=== PATIENT | male | born 1975 | race Caucasian/White ===

== ENCOUNTER 2016-11-11 07:07 | Inpatient (IN) | payer BC ==
[~2016-11-11] VITALS: Ht 182.9 cm; Wt 110.9 kg
[~2016-11-11 07:07] MED LIST: APRISO0.375 GM PO; ASACOL HD800 MG PO; ASACOL PO; CARDIZEM CD 18180 MG PO; CARDIZEM CD 24240 MG PO; CARDIZEM30 MG PO; CATAPRES; CATAPRES 0.1MG0.1 MG PO; CLONIDINE0.1 MG PO; DILTIAZEM XT PO; FLAGYL; FLAGYL 250250 MG/TAB PO; FLAGYL500 MG PO; FLEXERIL 1010 MG/TAB PO; IMURAN 50MG TAB50 MG PO; IMURAN50 MG PO; LABETALOL100 MG PO; LEVBID0.375 MG PO; LISINOPRIL20 MG PO; LISINOPRIL40 MG PO; LORTAB 5/500 501 TAB PO; LORTAB PO; MEDROL 4MG DOSPA4 MG PO; METOPROLOL25 MG PO; NO HOME MEDICATIONS; NORCO 325 MG-51 TAB; NORCO 325 MG-51 TAB PO; NORCO 325 MG-7.1 TAB PO; OXYCONTIN 20MG20 MG PO; PERCOCET 325 MG1 TA2 PO; PERCOCET 325 MG1 TA3 PO; PERCOCET 325 MG1 TAB PO; PERCOCET 5/321 UDTAB PO; PERCR 7.5 PO; PREDNISONE 5MG5 MG PO; PREDNISONE1 MG PO; PREDNISONE10 MG; PREDNISONE20 MG PO; PRINIVIL40 MG PO; REMICADE V100 MG/VIA IV; TOPROL XL100 MG PO; VALIUM 5MG T5 MG/TAB PO; VICODIN 5/300 PO; ZESTRIL40 MG PO; ZOFRAN 4MG T4 MG/TAB PO; [UNRECOGNIZED DRUG - OTHER]
[2016-11-11 07:34] LABS: BASO % 0.7 % (0.0-2.0); EOS # 0.2 (0.0-0.7); EOS % 3.1 % (0-4.0); GRAN % 64.8 % (42.2-75.2); HEMOGLOBIN 16.2 g/dl (13.5-18.0); LYMPH # 1.4 (1.2-3.4); LYMPH % 22.6 % (20.0-51.0); MEAN CELL VOLUME 89 fl (80.0-100.0); MEAN CORPUSCULAR HEMOGLOBIN 31 pg (27.0-31.0); MEAN CORPUSCULAR HGB CONC 35 g/dl (33.0-37.0); MONO # 0.5 (0.1-0.6); MONO % 8.5 % (1.7-9.3); PLATELET COUNT 195 K/mm3 (130-400); RED BLOOD COUNT 5.28 M/mm3 (4.20-5.60); REDCELL DISTRIBUTION WIDTH-CV 12.9 % (11.5-14.5); WHITE BLOOD COUNT 6.1 K/mm3 (4.8-10.8)
[2016-11-11 07:38] LABS: ADJUSTED CALCIUM 9.5 mg/dL (8.4-10.2); ALBUMIN 4.3 gm/dL (3.5-5.0); BILIRUBIN,TOTAL 0.8 mg/dL (0.0-1.0); CALCIUM 9.7 mg/dL (8.4-10.2); CREATININE, serum 0.83 mg/dL (0.66-1.25); POTASSIUM 3.7 mmol/L (3.4-5.0); TOTAL PROTEIN 7.6 gm/dL (6.4-8.2)
[2016-11-11 07:49] LABS: TROPONIN-I 0.032 ng/mL (0.000-0.034)
[2016-11-11 08:11] LABS: PROTHROMBIN TIME 11.4 SECONDS (9.7-12.8)
[2016-11-11 08:14] LABS: PARTIAL THROMBOPLASTIN TIME 24.5 SECONDS (26.0-37.0)
[2016-11-11] MEDS ORDERED: CARTIA XT180 MG PO (08:56)
[2016-11-11 11:00] LABS: PROLACTIN 43.7 ng/mL (3.7-17.9)
[2016-11-11 11:17] LABS: TROPONIN-I 0.042 ng/mL (0.000-0.034)
[2016-11-11 13:46] VITALS: BP 157/116; PULSE 78; TEMP 98.7
[2016-11-11 15:56] LABS: MAGNESIUM 1.9 mg/dL (1.6-2.3)
[2016-11-11 16:15] VITALS: BP 176/116; PULSE 82; TEMP 98.4
[2016-11-11 18:52] VITALS: BP 152/91; PULSE 86; TEMP 98.2
[2016-11-11 19:47] VITALS: BP 142/99; PULSE 97; TEMP 98.6
[2016-11-11 21:19] VITALS: BP 152/102; PULSE 80; TEMP 98.6
[2016-11-11 22:33] LABS: PH 5 (5-8); SQUAMOUS EPITHELIAL None Seen /hpf; URINE APPEARANCE Hazy; URINE BACTERIA None Seen /hpf; URINE BILIRUBIN Negative (NEGATIVE); URINE BLOOD Negative (NEGATIVE); URINE COLOR Yellow; URINE GLUCOSE Negative (NEGATIVE); URINE KETONE Negative (NEGATIVE); URINE RBC 0-2 /hpf; URINE UROBILINOGEN Negative (NEGATIVE)
[2016-11-11 22:46] LABS: AMPHETAMINE URINE NEGATIVE; BARBITURATES URINE NEGATIVE; BENZODIAZEPINES URINE NEGATIVE; BUPRENORPHINE URINE NEGATIVE; METHADONE URINE NEGATIVE; OPIATES URINE POSITIVE; OXYCODONE URINE NEGATIVE; PHENCYCLIDINE URINE NEGATIVE; PROPOXYPHENE URINE NEGATIVE; THC CANNABINOIDS URINE NEGATIVE
[2016-11-11 23:35] VITALS: BP 133/92; PULSE 75; TEMP 98.6
[2016-11-12] VITALS (16 sets, daily range): BP systolic 121–172; BP diastolic 73–114; PULSE 65–109; TEMP 97.6–98.4
[2016-11-12 07:03] LABS: BASO % 0.8 % (0.0-2.0); EOS # 0.3 (0.0-0.7); EOS % 5.2 % (0-4.0); GRAN # 1.9 (1.4-6.5); GRAN % 38.6 % (42.2-75.2); HEMATOCRIT 42.5 % (42.0-52.0); LYMPH # 2.2 (1.2-3.4); LYMPH % 44.8 % (20.0-51.0); MEAN CELL VOLUME 92 fl (80.0-100.0); MEAN CORPUSCULAR HEMOGLOBIN 31 pg (27.0-31.0); MEAN CORPUSCULAR HGB CONC 33 g/dl (33.0-37.0); MEAN PLATELET VOLUME 11.3 fl (7.4-10.4); MONO # 0.5 (0.1-0.6); MONO % 10.4 % (1.7-9.3); PLATELET COUNT 178 K/mm3 (130-400); RED BLOOD COUNT 4.62 M/mm3 (4.20-5.60); REDCELL DISTRIBUTION WIDTH-CV 13.2 % (11.5-14.5); WHITE BLOOD COUNT 4.8 K/mm3 (4.8-10.8)
[2016-11-12 07:11] LABS: HEMOGLOBIN 14.2 g/dl (13.5-18.0)
[2016-11-12 08:45] LABS: ALBUMIN 3.5 gm/dL (3.5-5.0); BILIRUBIN,TOTAL 0.6 mg/dL (0.0-1.0); CALCIUM 8.6 mg/dL (8.4-10.2); CREATININE, serum 0.76 mg/dL (0.66-1.25); POTASSIUM 3.9 mmol/L (3.4-5.0); TOTAL PROTEIN 6.3 gm/dL (6.4-8.2)
[2016-11-13 00:15] VITALS: BP 111/71; PULSE 60; TEMP 97.6
[2016-11-13 02:15] VITALS: BP 105/68; PULSE 62; TEMP 97.7
[2016-11-13 04:26] VITALS: BP 118/83; PULSE 56; TEMP 98.4
[2016-11-13 07:43] VITALS: BP 120/82; PULSE 54; TEMP 97.8
[2016-11-13 10:40] VITALS: BP 131/79; PULSE 69; TEMP 98.1
[2016-11-13] MEDS ORDERED: COREG12.5 MG PO (13:46)
[2016-11-13] MEDS ORDERED: ZESTRIL 20MG TA20 MG PO (13:47)
[2016-11-13] MEDS ORDERED: ASPIRIN E.C. 8181 MG PO (13:47)
[2016-11-13] MEDS ORDERED: LASIX 20MG TABL20 MG PO (13:48)
== END 2016-11-13 16:00 | disposition home or self-care (01) | DRG 287 ==
LOC: COL.ER → EDBD 07:08 → MEDICAL 12:04
PROVIDERS: Emergency Medicine; Physician Assistant
PROC: B2111ZZ Fluoroscopy of Multiple Coronary Arteries using Low Osmolar Contrast (ICD-10-PCS; principal; 2016-11-12)
DX: I11.0 Hypertensive heart disease with heart failure (principal); K51.90 Ulcerative colitis, unspecified, without complications; I50.21 Acute systolic (congestive) heart failure; R56.9 Unspecified convulsions; I42.0 Dilated cardiomyopathy; G89.29 Other chronic pain; W18.30XA Fall on same level, unspecified, initial encounter; M54.5 Low back pain; F10.10 Alcohol abuse, uncomplicated
CPT/HCPCS: 99222-AI; 99233-AI; 99239; A9502; A9585; C1769; C1887; C1894; J1644; J1650; J1885; J2250; J2765; J2785; J3010; J7030; Q9967

== ENCOUNTER 2016-12-06 17:35 | Emergency (ER) | payer BC ==
[2009-04-11 02:41] VITALS: BP 136/95
[~2016-12-06] VITALS: Ht 182.9 cm; Wt 106.4 kg
[~2016-12-06 17:35] MED LIST changes: +ASPIRIN E.C. 8181 MG PO; +CARTIA XT180 MG PO; +COREG12.5 MG PO; +LASIX 20MG TABL20 MG PO; +ZESTRIL 20MG TA20 MG PO
[2016-12-06 17:39] VITALS: TEMP 98.1
[2016-12-06] MEDS ORDERED: NEURONTIN300 MG/CAP PO (18:26)
[2016-12-06] MEDS ORDERED: ALDACTONE 25MG25 M1 PO (18:26)
[2016-12-06] MEDS ORDERED: IMURAN 50MG TAB50 MG PO (18:26)
[2016-12-06 19:15] LABS: BASO # 0.1 (0.0-0.2); BASO % 0.7 % (0.0-2.0); EOS # 0.3 (0.0-0.7); EOS % 4.6 % (0-4.0); GRAN # 3.3 (1.4-6.5); GRAN % 45.8 % (42.2-75.2); HEMATOCRIT 46.5 % (42.0-52.0); HEMOGLOBIN 16.3 g/dl (13.5-18.0); LYMPH # 2.7 (1.2-3.4); LYMPH % 37.7 % (20.0-51.0); MEAN CELL VOLUME 87 fl (80.0-100.0); MEAN CORPUSCULAR HEMOGLOBIN 31 pg (27.0-31.0); MEAN CORPUSCULAR HGB CONC 35 g/dl (33.0-37.0); MEAN PLATELET VOLUME 10.4 fl (7.4-10.4); MONO # 0.8 (0.1-0.6); MONO % 11.1 % (1.7-9.3); PLATELET COUNT 203 K/mm3 (130-400); RED BLOOD COUNT 5.32 M/mm3 (4.20-5.60); REDCELL DISTRIBUTION WIDTH-CV 11.7 % (11.5-14.5); WHITE BLOOD COUNT 7.1 K/mm3 (4.8-10.8)
[2016-12-06 19:29] LABS: ADJUSTED CALCIUM 9.4 mg/dL (8.4-10.2); ALANINE AMINOTRANSFERASE 37 U/L (21-72); ALBUMIN 4.7 gm/dL (3.5-5.0); ALKALINE PHOSPHATASE 52 U/L (50-136); ANION GAP 13 mmol/L (7-16); BILIRUBIN,TOTAL 0.6 mg/dL (0.0-1.0); BLOOD UREA NITROGEN 24 mg/dL (9-20); CARBON DIOXIDE 27 mmol/L (22-30); CHLORIDE 101 mmol/L (98-107); GLUCOSE 121 mg/dL (74-106); LIPASE 187 U/L (23-300); POTASSIUM 4.1 mmol/L (3.4-5.0); SODIUM 141 mmol/L (137-145); TOTAL PROTEIN 8.2 gm/dL (6.4-8.2)
[2016-12-06 19:40] LABS: B-TYPE NATRIURETIC PEPTIDE 210 pg/mL (0-125); TROPONIN-I < 0.012 ng/mL (0.000-0.034)
[2016-12-06 20:41] VITALS: BP 103/77; PULSE 84
== END 2016-12-06 21:02 | disposition home or self-care (01) ==
LOC: COL.ER 17:35
PROVIDERS: Emergency Medicine
DX: I42.0 Dilated cardiomyopathy (principal); R07.9 Chest pain, unspecified; I10 Essential (primary) hypertension; F41.9 Anxiety disorder, unspecified; R00.0 Tachycardia, unspecified

== ENCOUNTER 2016-12-18 08:07 | Inpatient (IN) | payer BC ==
[2009-04-11 02:41] VITALS: BP 136/95
[~2016-12-18] VITALS: Ht 182.9 cm; Wt 107.0 kg
[~2016-12-18 08:07] MED LIST changes: +ALDACTONE 25MG25 M1 PO; +NEURONTIN300 MG/CAP PO
[2016-12-18] MEDS ORDERED: PERCOCET 325 MG1 TA3 PO (09:11)
[2016-12-18 09:28] LABS: BASO % 0.5 % (0.0-2.0); EOS # 0.3 (0.0-0.7); EOS % 7.7 % (0-4.0); GRAN % 45.6 % (42.2-75.2); HEMATOCRIT 44.4 % (42.0-52.0); HEMOGLOBIN 14.9 g/dl (13.5-18.0); LYMPH # 1.3 (1.2-3.4); LYMPH % 29.4 % (20.0-51.0); MEAN CELL VOLUME 89 fl (80.0-100.0); MEAN CORPUSCULAR HEMOGLOBIN 30 pg (27.0-31.0); MEAN CORPUSCULAR HGB CONC 34 g/dl (33.0-37.0); MEAN PLATELET VOLUME 10.1 fl (7.4-10.4); MONO # 0.7 (0.1-0.6); MONO % 16.6 % (1.7-9.3); PLATELET COUNT 169 K/mm3 (130-400); REDCELL DISTRIBUTION WIDTH-CV 12.1 % (11.5-14.5); WHITE BLOOD COUNT 4.3 K/mm3 (4.8-10.8)
[2016-12-18 09:32] LABS: INR 1.1 (0.8-3.0); PROTHROMBIN TIME 12.6 SECONDS (9.7-12.8)
[2016-12-18 09:34] LABS: ADJUSTED CALCIUM 9.2 mg/dL (8.4-10.2); ALBUMIN 4.3 gm/dL (3.5-5.0); BILIRUBIN,TOTAL 0.8 mg/dL (0.0-1.0); CALCIUM 9.4 mg/dL (8.4-10.2); CREATININE, serum 0.84 mg/dL (0.66-1.25); MAGNESIUM 2.1 mg/dL (1.6-2.3); POTASSIUM 4.1 mmol/L (3.4-5.0); TOTAL PROTEIN 7.6 gm/dL (6.4-8.2)
[2016-12-18 09:43] VITALS: BP 111/80; PULSE 79; TEMP 98
[2016-12-18 09:44] VITALS: BP 111/80; PULSE 79; TEMP 98
[2016-12-18 11:59] VITALS: BP 121/82; PULSE 85; TEMP 97.7
[2016-12-18 16:24] VITALS: BP 119/77; PULSE 71; TEMP 97
[2016-12-18 20:52] VITALS: BP 107/70; PULSE 84; TEMP 98.7
[2016-12-18 23:30] VITALS: BP 130/73; PULSE 66; TEMP 98.6
[2016-12-19 03:21] VITALS: BP 104/61; PULSE 55; TEMP 97.8
[2016-12-19 07:14] LABS: CALCIUM 9.2 mg/dL (8.4-10.2); CREATININE, serum 0.84 mg/dL (0.66-1.25); POTASSIUM 4.2 mmol/L (3.4-5.0)
[2016-12-19 07:17] LABS: INR 1.1 (0.8-3.0); PROTHROMBIN TIME 12.5 SECONDS (9.7-12.8)
[2016-12-19 07:51] VITALS: BP 101/61; PULSE 63; TEMP 98.1
[2016-12-19 12:19] VITALS: BP 124/70; PULSE 71; TEMP 97.6
[2016-12-19 16:44] VITALS: BP 120/76; PULSE 79; TEMP 98.4
[2016-12-19 20:47] VITALS: BP 119/78; PULSE 79; TEMP 98.5
[2016-12-19 23:25] VITALS: BP 111/70; PULSE 71; TEMP 98.2
[2016-12-20 06:18] VITALS: BP 117/61; PULSE 87; TEMP 98.2
[2016-12-20 07:03] LABS: INR 1.1 (0.8-3.0)
[2016-12-20 07:07] LABS: CALCIUM 9.1 mg/dL (8.4-10.2); CREATININE, serum 0.84 mg/dL (0.66-1.25); POTASSIUM 4.1 mmol/L (3.4-5.0)
[2016-12-20 07:32] VITALS: BP 101/65; PULSE 64; TEMP 98.2
[2016-12-20 11:13] VITALS: BP 96/62; PULSE 76; TEMP 98.6
[2016-12-20] MEDS ORDERED: ZESTRIL 5MG5 MG PO (12:03)
[2016-12-20] MEDS ORDERED: ZESTRIL 10MG10 MG PO (12:14)
== END 2016-12-20 12:26 | disposition home or self-care (01) | DRG 309 ==
LOC: MEDICAL 08:07 → SURG 17:33 → MEDICAL 12-20 12:26
PROVIDERS: Internal Medicine Cardiovascular Disease
DX: I47.2 Ventricular tachycardia (principal); I42.9 Cardiomyopathy, unspecified
CPT/HCPCS: J7500

== ENCOUNTER 2017-01-09 11:56 | Day surgery (SDC) | payer BC ==
[2009-04-11 02:41] VITALS: BP 136/95
[~2017-01-09] VITALS: Ht 182.9 cm; Wt 105.9 kg
[~2017-01-09 11:56] MED LIST changes: +ZESTRIL 10MG10 MG PO; +ZESTRIL 5MG5 MG PO
[2017-01-09] MEDS ORDERED: COREG 6.256.25 MG/TA PO (12:42)
[2017-01-09] MEDS ORDERED: BETAPACE 120MG120 MG PO (12:42)
[2017-01-09] MEDS ORDERED: THE MEDICINE S200 M2 PO (12:43)
[2017-01-09 12:44] VITALS: BP 136/76; PULSE 70; TEMP 98.2
[2017-01-09 13:45] VITALS: BP 111/69; PULSE 59; TEMP 98.2
[2017-01-09 14:00] VITALS: BP 109/68; PULSE 73
[2017-01-09 14:15] VITALS: BP 129/68; PULSE 81
[2017-01-09 14:30] VITALS: BP 123/75; PULSE 70
== END 2017-01-09 14:43 | disposition home or self-care (01) ==
LOC: SDCO 11:56
DX: K51.00 Ulcerative (chronic) pancolitis without complications (principal); K64.0 First degree hemorrhoids; K76.89 Other specified diseases of liver; Z79.82 Long term (current) use of aspirin; Z79.899 Other long term (current) drug therapy; Z79.52 Long term (current) use of systemic steroids; Z68.31 Body mass index [BMI] 31.0-31.9, adult
CPT/HCPCS: J2704

== ENCOUNTER 2017-01-12 12:22 | Emergency (ER) | payer BC ==
[2009-04-11 02:41] VITALS: BP 136/95
[~2017-01-12] VITALS: Ht 182.9 cm; Wt 103.6 kg
[~2017-01-12 12:22] MED LIST changes: +BETAPACE 120MG120 MG PO; +COREG 6.256.25 MG/TA PO; +THE MEDICINE S200 M2 PO
[2017-01-12 12:27] VITALS: TEMP 98.5
[2017-01-12] MEDS ORDERED: KLONOPIN 0.5MG0.5 MG PO (12:37)
[2017-01-12] MEDS ORDERED: MOBIC15 MG PO (12:37)
[2017-01-12 12:59] LABS: BASO # 0.1 (0.0-0.2); BASO % 0.9 % (0.0-2.0); EOS # 0.3 (0.0-0.7); EOS % 4.7 % (0-4.0); GRAN # 2.7 (1.4-6.5); GRAN % 46.9 % (42.2-75.2); HEMATOCRIT 42.8 % (42.0-52.0); HEMOGLOBIN 14.7 g/dl (13.5-18.0); LYMPH # 2.1 (1.2-3.4); LYMPH % 36.2 % (20.0-51.0); MEAN CELL VOLUME 88 fl (80.0-100.0); MEAN CORPUSCULAR HEMOGLOBIN 30 pg (27.0-31.0); MEAN CORPUSCULAR HGB CONC 34 g/dl (33.0-37.0); MEAN PLATELET VOLUME 10.4 fl (7.4-10.4); MONO # 0.6 (0.1-0.6); PLATELET COUNT 195 K/mm3 (130-400); RED BLOOD COUNT 4.87 M/mm3 (4.20-5.60); REDCELL DISTRIBUTION WIDTH-CV 12.5 % (11.5-14.5); WHITE BLOOD COUNT 5.7 K/mm3 (4.8-10.8)
[2017-01-12 13:01] LABS: PROTHROMBIN TIME 11.4 SECONDS (9.7-12.8)
[2017-01-12 13:03] LABS: PARTIAL THROMBOPLASTIN TIME 30.2 SECONDS (26.0-37.0)
[2017-01-12 13:29] LABS: ADJUSTED CALCIUM 9.5 mg/dL (8.4-10.2); ALANINE AMINOTRANSFERASE 30 U/L (21-72); ALBUMIN 4.4 gm/dL (3.5-5.0); ALKALINE PHOSPHATASE 48 U/L (50-136); ANION GAP 13 mmol/L (7-16); BILIRUBIN,TOTAL 0.8 mg/dL (0.0-1.0); BLOOD UREA NITROGEN 20 mg/dL (9-20); CALCIUM 9.8 mg/dL (8.4-10.2); CARBON DIOXIDE 26 mmol/L (22-30); CHLORIDE 102 mmol/L (98-107); CREATININE, serum 0.93 mg/dL (0.66-1.25); GLUCOSE 112 mg/dL (74-106); POTASSIUM 4.4 mmol/L (3.4-5.0); SODIUM 141 mmol/L (137-145); TOTAL PROTEIN 7.7 gm/dL (6.4-8.2)
[2017-01-12 13:40] LABS: B-TYPE NATRIURETIC PEPTIDE 74 pg/mL (0-125)
[2017-01-12 13:41] LABS: TROPONIN-I < 0.012 ng/mL (0.000-0.034)
[2017-01-12 14:36] VITALS: BP 105/79; PULSE 78
== END 2017-01-12 14:36 | disposition home or self-care (01) ==
LOC: COL.ER 12:22
PROVIDERS: Emergency Medicine
DX: I49.3 Ventricular premature depolarization (principal); I42.0 Dilated cardiomyopathy; I50.9 Heart failure, unspecified; R07.9 Chest pain, unspecified; I10 Essential (primary) hypertension; Z95.0 Presence of cardiac pacemaker

== ENCOUNTER 2017-01-14 10:51 | Emergency (ER) | payer BC ==
[2009-04-11 02:41] VITALS: BP 136/95
[~2017-01-14] VITALS: Ht 182.9 cm; Wt 106.4 kg
[~2017-01-14 10:51] MED LIST changes: +KLONOPIN 0.5MG0.5 MG PO; +MOBIC15 MG PO
[2017-01-14 10:54] VITALS: TEMP 98.1
[2017-01-14 11:53] LABS: BASO % 0.7 % (0.0-2.0); EOS # 0.3 (0.0-0.7); EOS % 4.5 % (0-4.0); GRAN # 2.9 (1.4-6.5); GRAN % 50.9 % (42.2-75.2); HEMATOCRIT 45.3 % (42.0-52.0); HEMOGLOBIN 15.6 g/dl (13.5-18.0); LYMPH # 1.9 (1.2-3.4); LYMPH % 32.9 % (20.0-51.0); MEAN CELL VOLUME 88 fl (80.0-100.0); MEAN CORPUSCULAR HEMOGLOBIN 30 pg (27.0-31.0); MEAN CORPUSCULAR HGB CONC 34 g/dl (33.0-37.0); MEAN PLATELET VOLUME 10.5 fl (7.4-10.4); MONO # 0.6 (0.1-0.6); MONO % 10.7 % (1.7-9.3); PLATELET COUNT 214 K/mm3 (130-400); RED BLOOD COUNT 5.14 M/mm3 (4.20-5.60); REDCELL DISTRIBUTION WIDTH-CV 12.5 % (11.5-14.5); WHITE BLOOD COUNT 5.7 K/mm3 (4.8-10.8)
[2017-01-14 11:58] LABS: ADJUSTED CALCIUM 9.4 mg/dL (8.4-10.2); ALBUMIN 4.8 gm/dL (3.5-5.0); BILIRUBIN,TOTAL 0.8 mg/dL (0.0-1.0); CREATININE, serum 0.82 mg/dL (0.66-1.25); MAGNESIUM 1.9 mg/dL (1.6-2.3); POTASSIUM 5.2 mmol/L (3.4-5.0); TOTAL PROTEIN 8.1 gm/dL (6.4-8.2)
[2017-01-14 14:26] VITALS: BP 118/67; PULSE 74
== END 2017-01-14 14:33 | disposition home or self-care (01) ==
LOC: COL.ER 10:51
PROVIDERS: Emergency Medicine
DX: R55 Syncope and collapse (principal); I42.9 Cardiomyopathy, unspecified; R00.0 Tachycardia, unspecified

== ENCOUNTER 2017-01-17 18:13 | Inpatient (IN) | payer BC ==
[~2017-01-17] VITALS: Ht 182.9 cm; Wt 108.9 kg
[2017-01-17] MEDS ORDERED: COREG12.5 MG PO (18:23)
[2017-01-17] MEDS ORDERED: BETAPACE 120MG120 MG PO (18:24)
[2017-01-17 18:41] LABS: BASO % 0.7 % (0.0-2.0); EOS # 0.3 (0.0-0.7); EOS % 4.1 % (0-4.0); GRAN # 2.6 (1.4-6.5); GRAN % 43.4 % (42.2-75.2); HEMATOCRIT 41.9 % (42.0-52.0); HEMOGLOBIN 14.4 g/dl (13.5-18.0); LYMPH # 2.4 (1.2-3.4); LYMPH % 40.5 % (20.0-51.0); MEAN CELL VOLUME 88 fl (80.0-100.0); MEAN CORPUSCULAR HEMOGLOBIN 30 pg (27.0-31.0); MEAN CORPUSCULAR HGB CONC 34 g/dl (33.0-37.0); MEAN PLATELET VOLUME 10.3 fl (7.4-10.4); MONO # 0.7 (0.1-0.6); MONO % 11.1 % (1.7-9.3); PLATELET COUNT 206 K/mm3 (130-400); RED BLOOD COUNT 4.75 M/mm3 (4.20-5.60); REDCELL DISTRIBUTION WIDTH-CV 12.6 % (11.5-14.5)
[2017-01-17 18:49] LABS: PROTHROMBIN TIME 11.6 SECONDS (9.7-12.8)
[2017-01-17 19:02] LABS: ADJUSTED CALCIUM 9.2 mg/dL (8.4-10.2); ALANINE AMINOTRANSFERASE 31 U/L (21-72); ALBUMIN 4.5 gm/dL (3.5-5.0); ALKALINE PHOSPHATASE 48 U/L (50-136); ANION GAP 12 mmol/L (7-16); BILIRUBIN,TOTAL 0.7 mg/dL (0.0-1.0); BLOOD UREA NITROGEN 23 mg/dL (9-20); CALCIUM 9.6 mg/dL (8.4-10.2); CARBON DIOXIDE 24 mmol/L (22-30); CHLORIDE 103 mmol/L (98-107); CREATININE, serum 0.83 mg/dL (0.66-1.25); GLUCOSE 101 mg/dL (74-106); POTASSIUM 4.3 mmol/L (3.4-5.0); SODIUM 138 mmol/L (137-145); TOTAL PROTEIN 7.3 gm/dL (6.4-8.2)
[2017-01-17 19:09] LABS: ACETAMINOPHEN < 10 ug/mL (10-30); SALICYLATE < 1.0 mg/dL
[2017-01-17 19:12] LABS: B-TYPE NATRIURETIC PEPTIDE 36 pg/mL (0-125)
[2017-01-17 19:13] LABS: TROPONIN-I < 0.012 ng/mL (0.000-0.034)
[2017-01-17 21:52] VITALS: BP 93/46; PULSE 60; TEMP 98.9
[2017-01-18 03:22] VITALS: BP 97/50; PULSE 59; TEMP 97.2
[2017-01-18 07:21] LABS: BASO % 0.7 % (0.0-2.0); EOS # 0.3 (0.0-0.7); EOS % 4.7 % (0-4.0); GRAN # 2.4 (1.4-6.5); GRAN % 40.3 % (42.2-75.2); HEMATOCRIT 39.4 % (42.0-52.0); LYMPH # 2.5 (1.2-3.4); LYMPH % 41.4 % (20.0-51.0); MEAN CELL VOLUME 90 fl (80.0-100.0); MEAN CORPUSCULAR HEMOGLOBIN 30 pg (27.0-31.0); MEAN CORPUSCULAR HGB CONC 33 g/dl (33.0-37.0); MEAN PLATELET VOLUME 10.5 fl (7.4-10.4); MONO # 0.8 (0.1-0.6); MONO % 12.7 % (1.7-9.3); PLATELET COUNT 179 K/mm3 (130-400); RED BLOOD COUNT 4.37 M/mm3 (4.20-5.60); REDCELL DISTRIBUTION WIDTH-CV 12.9 % (11.5-14.5); WHITE BLOOD COUNT 5.9 K/mm3 (4.8-10.8)
[2017-01-18 07:26] LABS: ANION GAP 13 mmol/L (7-16); BLOOD UREA NITROGEN 34 mg/dL (9-20); CALCIUM 8.9 mg/dL (8.4-10.2); CARBON DIOXIDE 27 mmol/L (22-30); CHLORIDE 99 mmol/L (98-107); CREATININE, serum 2.36 mg/dL (0.66-1.25); GLUCOSE 108 mg/dL (74-106); POTASSIUM 3.8 mmol/L (3.4-5.0); SODIUM 139 mmol/L (137-145)
[2017-01-18 07:38] LABS: TROPONIN-I < 0.012 ng/mL (0.000-0.034)
[2017-01-18 07:47] LABS: CHOLESTEROL 174 mg/dL (120-200); HDL CHOLESTEROL 28 mg/dL; LDL CHOLESTEROL 98 mg/dL; TRIGLYCERIDE 239 mg/dL
[2017-01-18 07:52] VITALS: BP 75/45; PULSE 58; TEMP 98.8
[2017-01-18 10:31] VITALS: BP 101/60
[2017-01-18 15:10] LABS: PH 5 (5-8); SQUAMOUS EPITHELIAL None Seen /hpf; URINE APPEARANCE Clear; URINE BACTERIA None Seen /hpf; URINE BILIRUBIN Negative (NEGATIVE); URINE BLOOD 1+ (NEGATIVE); URINE COLOR Yellow; URINE GLUCOSE Negative (NEGATIVE); URINE KETONE Negative (NEGATIVE); URINE RBC 0-2 /hpf; URINE UROBILINOGEN Negative (NEGATIVE); URINE WBC 0-2 /hpf
[2017-01-18 17:44] VITALS: BP 111/61; PULSE 72; TEMP 97.8
[2017-01-18 21:04] VITALS: BP 143/88; PULSE 91; TEMP 97.4
[2017-01-18 22:42] VITALS: BP 121/77; PULSE 87; TEMP 98.6
[2017-01-19] VITALS (8 sets, daily range): BP systolic 136–190; BP diastolic 73–135; PULSE 70–83; TEMP 97.6–98.6
[2017-01-19 08:30] LABS: MEAN CELL VOLUME 90 fl (80.0-100.0); MEAN CORPUSCULAR HEMOGLOBIN 30 pg (27.0-31.0); MEAN CORPUSCULAR HGB CONC 33 g/dl (33.0-37.0); MEAN PLATELET VOLUME 10.9 fl (7.4-10.4); PLATELET COUNT 197 K/mm3 (130-400); RED BLOOD COUNT 4.66 M/mm3 (4.20-5.60); REDCELL DISTRIBUTION WIDTH-CV 12.6 % (11.5-14.5); WHITE BLOOD COUNT 5.3 K/mm3 (4.8-10.8)
[2017-01-19 08:46] LABS: CALCIUM 9.4 mg/dL (8.4-10.2); CREATININE, serum 0.96 mg/dL (0.66-1.25); POTASSIUM 4.5 mmol/L (3.4-5.0)
[2017-01-19 11:47] LABS: ADJUSTED CALCIUM 9.2 mg/dL (8.4-10.2); ALBUMIN 4.2 gm/dL (3.5-5.0); BILIRUBIN,TOTAL 0.6 mg/dL (0.0-1.0); TOTAL PROTEIN 7.4 gm/dL (6.4-8.2)
[2017-01-20 03:52] VITALS: BP 159/98; PULSE 72; TEMP 97.3
[2017-01-20 07:30] VITALS: BP 146/92; PULSE 70; TEMP 98.2
[2017-01-20 07:46] LABS: HEMOGLOBIN 15.1 g/dl (13.5-18.0); MEAN CELL VOLUME 88 fl (80.0-100.0); MEAN CORPUSCULAR HEMOGLOBIN 30 pg (27.0-31.0); MEAN CORPUSCULAR HGB CONC 34 g/dl (33.0-37.0); MEAN PLATELET VOLUME 10.3 fl (7.4-10.4); PLATELET COUNT 209 K/mm3 (130-400); RED BLOOD COUNT 5.11 M/mm3 (4.20-5.60); REDCELL DISTRIBUTION WIDTH-CV 12.3 % (11.5-14.5)
[2017-01-20 07:48] LABS: ADJUSTED CALCIUM 9.6 mg/dL (8.4-10.2); ALBUMIN 4.5 gm/dL (3.5-5.0); BILIRUBIN,TOTAL 0.6 mg/dL (0.0-1.0); CREATININE, serum 0.99 mg/dL (0.66-1.25); POTASSIUM 4.6 mmol/L (3.4-5.0); TOTAL PROTEIN 7.7 gm/dL (6.4-8.2)
[2017-01-20 11:06] VITALS: BP 150/99; PULSE 77; TEMP 98.4
[2017-01-20 11:10] VITALS: BP 150/99
[2017-01-20 15:22] VITALS: BP 126/82; PULSE 81
[2017-01-20 20:20] VITALS: BP 154/94; PULSE 77; TEMP 97.6
[2017-01-21 00:37] VITALS: BP 146/99; PULSE 70; TEMP 97.8
[2017-01-21 04:49] VITALS: BP 113/70; PULSE 75; TEMP 98
[2017-01-21 07:34] VITALS: BP 141/98; PULSE 76; TEMP 98.9
[2017-01-21 08:00] LABS: HEMATOCRIT 45.2 % (42.0-52.0); HEMOGLOBIN 15.3 g/dl (13.5-18.0); MEAN CELL VOLUME 88 fl (80.0-100.0); MEAN CORPUSCULAR HEMOGLOBIN 30 pg (27.0-31.0); MEAN CORPUSCULAR HGB CONC 34 g/dl (33.0-37.0); MEAN PLATELET VOLUME 10.4 fl (7.4-10.4); PLATELET COUNT 203 K/mm3 (130-400); RED BLOOD COUNT 5.15 M/mm3 (4.20-5.60); REDCELL DISTRIBUTION WIDTH-CV 12.5 % (11.5-14.5)
[2017-01-21 08:17] LABS: ADJUSTED CALCIUM 9.5 mg/dL (8.4-10.2); ALBUMIN 4.5 gm/dL (3.5-5.0); BILIRUBIN,TOTAL 0.7 mg/dL (0.0-1.0); CALCIUM 9.9 mg/dL (8.4-10.2); CREATININE, serum 0.87 mg/dL (0.66-1.25); POTASSIUM 4.3 mmol/L (3.4-5.0); TOTAL PROTEIN 7.7 gm/dL (6.4-8.2)
[2017-01-21 11:48] VITALS: BP 155/97; PULSE 84; TEMP 98.2
[2017-01-21 15:47] VITALS: BP 138/98; PULSE 81; TEMP 97.8
[2017-01-21 20:38] VITALS: BP 123/83; PULSE 83; TEMP 97.3
[2017-01-22 00:52] VITALS: BP 149/79; PULSE 84; TEMP 98.3
[2017-01-22 05:05] VITALS: BP 148/91; PULSE 84; TEMP 98.4
[2017-01-22 07:44] LABS: HEMATOCRIT 44.2 % (42.0-52.0); HEMOGLOBIN 15.2 g/dl (13.5-18.0); MEAN CELL VOLUME 88 fl (80.0-100.0); MEAN CORPUSCULAR HEMOGLOBIN 30 pg (27.0-31.0); MEAN CORPUSCULAR HGB CONC 34 g/dl (33.0-37.0); MEAN PLATELET VOLUME 10.4 fl (7.4-10.4); PLATELET COUNT 200 K/mm3 (130-400); RED BLOOD COUNT 5.02 M/mm3 (4.20-5.60); REDCELL DISTRIBUTION WIDTH-CV 12.7 % (11.5-14.5); WHITE BLOOD COUNT 5.4 K/mm3 (4.8-10.8)
[2017-01-22 07:50] VITALS: BP 124/91; PULSE 78; TEMP 97.6
[2017-01-22 08:00] LABS: ADJUSTED CALCIUM 9.5 mg/dL (8.4-10.2); ALBUMIN 4.4 gm/dL (3.5-5.0); BILIRUBIN,TOTAL 0.6 mg/dL (0.0-1.0); CALCIUM 9.8 mg/dL (8.4-10.2); CREATININE, serum 0.88 mg/dL (0.66-1.25); POTASSIUM 4.1 mmol/L (3.4-5.0); TOTAL PROTEIN 7.4 gm/dL (6.4-8.2)
[2017-01-22 11:40] VITALS: BP 121/89; PULSE 84
[2017-01-22 15:58] VITALS: BP 153/100; PULSE 90; TEMP 98.9
[2017-01-22 21:12] VITALS: BP 135/75; PULSE 86; TEMP 98.8
[2017-01-23 00:20] VITALS: BP 142/88; PULSE 87; TEMP 98.6
[2017-01-23 04:07] VITALS: BP 107/63; PULSE 63; TEMP 98.2
[2017-01-23 07:58] VITALS: BP 124/90; PULSE 77; TEMP 97.4
[2017-01-23 08:01] LABS: HEMATOCRIT 43.5 % (42.0-52.0); HEMOGLOBIN 14.9 g/dl (13.5-18.0); MEAN CELL VOLUME 88 fl (80.0-100.0); MEAN CORPUSCULAR HEMOGLOBIN 30 pg (27.0-31.0); MEAN CORPUSCULAR HGB CONC 34 g/dl (33.0-37.0); MEAN PLATELET VOLUME 10.5 fl (7.4-10.4); PLATELET COUNT 199 K/mm3 (130-400); RED BLOOD COUNT 4.96 M/mm3 (4.20-5.60); REDCELL DISTRIBUTION WIDTH-CV 12.7 % (11.5-14.5); WHITE BLOOD COUNT 5.6 K/mm3 (4.8-10.8)
[2017-01-23 08:14] LABS: ADJUSTED CALCIUM 9.2 mg/dL (8.4-10.2); ALBUMIN 4.3 gm/dL (3.5-5.0); BILIRUBIN,TOTAL 0.6 mg/dL (0.0-1.0); CALCIUM 9.4 mg/dL (8.4-10.2); CREATININE, serum 0.87 mg/dL (0.66-1.25); POTASSIUM 4.1 mmol/L (3.4-5.0); TOTAL PROTEIN 7.3 gm/dL (6.4-8.2)
[2017-01-23] MEDS ORDERED: CLEOCIN HCL300 MG PO (09:25)
[2017-01-23] MEDS ORDERED: ZESTRIL 5MG5 MG PO (09:27)
[2017-01-23 11:35] VITALS: BP 137/86; PULSE 79; TEMP 97.9
[2017-01-23] MEDS ORDERED: PACERONE400 MG PO (13:22)
== END 2017-01-23 15:44 | disposition home or self-care (01) | DRG 312 ==
LOC: COL.ER 18:13 → MEDICAL 20:10
PROVIDERS: Emergency Medicine; Family Medicine; Internal Medicine; Internal Medicine Cardiovascular Disease
DX: I95.2 Hypotension due to drugs (principal); K51.90 Ulcerative colitis, unspecified, without complications; I50.22 Chronic systolic (congestive) heart failure; I42.9 Cardiomyopathy, unspecified; N17.9 Acute kidney failure, unspecified; I11.0 Hypertensive heart disease with heart failure; R55 Syncope and collapse; H60.92 Unspecified otitis externa, left ear; F10.21 Alcohol dependence, in remission; K08.89 Other specified disorders of teeth and supporting structures; T44.7X5A Adverse effect of beta-adrenoreceptor antagonists, initial encounter
CPT/HCPCS: OP; 99232-AI; 99233-AI; 99239; G0378; J7040

== ENCOUNTER 2017-01-28 15:45 | Emergency (ER) | payer BC ==
[2009-04-11 02:41] VITALS: BP 136/95
[~2017-01-28] VITALS: Ht 182.9 cm; Wt 105.5 kg
[~2017-01-28 15:45] MED LIST changes: +CLEOCIN HCL300 MG PO; +PACERONE400 MG PO
[2017-01-28 15:49] VITALS: TEMP 98.8
[2017-01-28 16:33] LABS: BASO % 0.6 % (0.0-2.0); EOS # 0.3 (0.0-0.7); EOS % 4.1 % (0-4.0); GRAN # 3.6 (1.4-6.5); GRAN % 56.7 % (42.2-75.2); HEMATOCRIT 39.2 % (42.0-52.0); HEMOGLOBIN 13.9 g/dl (13.5-18.0); LYMPH # 1.8 (1.2-3.4); LYMPH % 28.5 % (20.0-51.0); MEAN CELL VOLUME 86 fl (80.0-100.0); MEAN CORPUSCULAR HEMOGLOBIN 30 pg (27.0-31.0); MEAN CORPUSCULAR HGB CONC 36 g/dl (33.0-37.0); MONO # 0.6 (0.1-0.6); MONO % 9.8 % (1.7-9.3); PLATELET COUNT 206 K/mm3 (130-400); RED BLOOD COUNT 4.57 M/mm3 (4.20-5.60); REDCELL DISTRIBUTION WIDTH-CV 12.6 % (11.5-14.5); WHITE BLOOD COUNT 6.3 K/mm3 (4.8-10.8)
[2017-01-28 16:49] LABS: ALBUMIN 4.1 gm/dL (3.5-5.0); BILIRUBIN,TOTAL 0.7 mg/dL (0.0-1.0); CALCIUM 9.1 mg/dL (8.4-10.2); CREATININE, serum 1.04 mg/dL (0.66-1.25); MAGNESIUM 1.8 mg/dL (1.6-2.3); POTASSIUM 3.8 mmol/L (3.4-5.0); TOTAL PROTEIN 7.1 gm/dL (6.4-8.2)
[2017-01-28 18:18] VITALS: BP 150/101; PULSE 78
== END 2017-01-28 18:21 | disposition home or self-care (01) ==
LOC: COL.ER 15:45
PROVIDERS: Emergency Medicine
DX: R55 Syncope and collapse (principal); I42.9 Cardiomyopathy, unspecified; R00.2 Palpitations; R00.0 Tachycardia, unspecified; Z95.810 Presence of automatic (implantable) cardiac defibrillator

== ENCOUNTER 2017-02-16 21:13 | Emergency (ER) | payer BC ==
[2009-04-11 02:41] VITALS: BP 136/95
[~2017-02-16] VITALS: Ht 182.9 cm; Wt 109.1 kg
[2017-02-16 21:23] VITALS: TEMP 97.3
[2017-02-16] MEDS ORDERED: FENTANYL 25 MCG TD (21:32)
[2017-02-16 21:52] LABS: BASO # 0.1 (0.0-0.2); BASO % 0.7 % (0.0-2.0); EOS # 0.2 (0.0-0.7); EOS % 2.8 % (0-4.0); GRAN # 4.4 (1.4-6.5); GRAN % 65.7 % (42.2-75.2); HEMATOCRIT 43.4 % (42.0-52.0); HEMOGLOBIN 14.9 g/dl (13.5-18.0); LYMPH # 1.4 (1.2-3.4); LYMPH % 21.1 % (20.0-51.0); MEAN CELL VOLUME 87 fl (80.0-100.0); MEAN CORPUSCULAR HEMOGLOBIN 30 pg (27.0-31.0); MEAN CORPUSCULAR HGB CONC 34 g/dl (33.0-37.0); MEAN PLATELET VOLUME 10.2 fl (7.4-10.4); MONO # 0.6 (0.1-0.6); MONO % 9.4 % (1.7-9.3); PLATELET COUNT 191 K/mm3 (130-400); RED BLOOD COUNT 4.97 M/mm3 (4.20-5.60); WHITE BLOOD COUNT 6.7 K/mm3 (4.8-10.8)
[2017-02-16 22:04] LABS: ANION GAP 13 mmol/L (7-16); BLOOD UREA NITROGEN 19 mg/dL (9-20); CALCIUM 9.7 mg/dL (8.4-10.2); CARBON DIOXIDE 29 mmol/L (22-30); CHLORIDE 102 mmol/L (98-107); CREATININE, serum 0.83 mg/dL (0.66-1.25); GLUCOSE 110 mg/dL (74-106); POTASSIUM 4.3 mmol/L (3.4-5.0); SODIUM 143 mmol/L (137-145)
[2017-02-16 22:15] LABS: B-TYPE NATRIURETIC PEPTIDE 86 pg/mL (0-125); TROPONIN-I < 0.012 ng/mL (0.000-0.034)
[2017-02-16 23:15] VITALS: BP 149/93; PULSE 70
== END 2017-02-16 23:15 | disposition short-term general hospital (02) ==
LOC: COL.ER 21:13
PROVIDERS: Emergency Medicine
DX: I21.3 ST elevation (STEMI) myocardial infarction of unspecified site (principal); I11.0 Hypertensive heart disease with heart failure; I50.9 Heart failure, unspecified; I42.0 Dilated cardiomyopathy
CPT/HCPCS: J1644; J3101

== ENCOUNTER → 2017-02-21 | Outpatient (CLI) | payer BC ==
[~2017-02-21] MED LIST changes: +CEPHALEXIN500 M1 PO; +CORDARONE200 MG/TAB PO; +COREG 25MG25 MG/TAB PO; +FENTANYL 25 MCG TD; +HCTZ 25MG TAB25 MG PO; +K-DUR 10 MEQ T10 MEQ PO; +K-TAB10 PO; +PRINIVIL10 MG PO
== END ==
LOC: COL.VAS 12:26
DX: I08.0 Rheumatic disorders of both mitral and aortic valves (principal)

== ENCOUNTER 2017-03-10 06:29 | Emergency (ER) | payer BC ==
[2009-04-11 02:41] VITALS: BP 136/95
[~2017-03-10] VITALS: Ht 182.9 cm; Wt 106.4 kg
[~2017-03-10 06:29] MED LIST changes: -CEPHALEXIN500 M1 PO; -CORDARONE200 MG/TAB PO; -COREG 25MG25 MG/TAB PO; -HCTZ 25MG TAB25 MG PO; -K-DUR 10 MEQ T10 MEQ PO; -K-TAB10 PO; -PRINIVIL10 MG PO
[2017-03-10 06:37] VITALS: TEMP 97.8
[2017-03-10] MEDS ORDERED: CORDARONE200 MG/TAB PO (06:46)
[2017-03-10] MEDS ORDERED: PRINIVIL10 MG PO (06:47)
[2017-03-10 07:19] LABS: BASO % 0.6 % (0.0-2.0); EOS # 0.1 (0.0-0.7); EOS % 2.7 % (0-4.0); GRAN % 58.6 % (42.2-75.2); HEMATOCRIT 43.6 % (42.0-52.0); LYMPH # 1.5 (1.2-3.4); MEAN CELL VOLUME 88 fl (80.0-100.0); MEAN CORPUSCULAR HEMOGLOBIN 30 pg (27.0-31.0); MEAN CORPUSCULAR HGB CONC 34 g/dl (33.0-37.0); MEAN PLATELET VOLUME 10.5 fl (7.4-10.4); MONO # 0.5 (0.1-0.6); MONO % 8.9 % (1.7-9.3); PLATELET COUNT 219 K/mm3 (130-400); RED BLOOD COUNT 4.97 M/mm3 (4.20-5.60); REDCELL DISTRIBUTION WIDTH-CV 13.4 % (11.5-14.5); WHITE BLOOD COUNT 5.2 K/mm3 (4.8-10.8)
[2017-03-10 07:30] LABS: ADJUSTED CALCIUM 9.1 mg/dL (8.4-10.2); ALANINE AMINOTRANSFERASE 31 U/L (21-72); ALBUMIN 4.5 gm/dL (3.5-5.0); ALKALINE PHOSPHATASE 43 U/L (50-136); ANION GAP 14 mmol/L (7-16); BILIRUBIN,TOTAL 0.9 mg/dL (0.0-1.0); BLOOD UREA NITROGEN 11 mg/dL (9-20); CALCIUM 9.5 mg/dL (8.4-10.2); CARBON DIOXIDE 26 mmol/L (22-30); CHLORIDE 105 mmol/L (98-107); CREATININE, serum 0.85 mg/dL (0.66-1.25); GLUCOSE 104 mg/dL (74-106); POTASSIUM 3.4 mmol/L (3.4-5.0); SODIUM 145 mmol/L (137-145); TOTAL PROTEIN 7.8 gm/dL (6.4-8.2)
[2017-03-10 07:41] LABS: C-REACTIVE PROTEIN < 0.5 mg/dL (0.0-0.9); TROPONIN-I < 0.012 ng/mL (0.000-0.034)
[2017-03-10 10:47] LABS: PH 5 (5-8); SQUAMOUS EPITHELIAL None Seen /hpf; URINE APPEARANCE Clear; URINE BACTERIA None Seen /hpf; URINE BILIRUBIN Negative (NEGATIVE); URINE BLOOD 1+ (NEGATIVE); URINE COLOR Yellow; URINE GLUCOSE Negative (NEGATIVE); URINE KETONE Negative (NEGATIVE); URINE RBC 0-2 /hpf; URINE UROBILINOGEN Negative (NEGATIVE); URINE WBC 0-2 /hpf
[2017-03-10 11:01] VITALS: BP 146/91; PULSE 59
== END 2017-03-10 11:18 | disposition home or self-care (01) ==
LOC: COL.ER 06:29
PROVIDERS: Emergency Medicine
DX: G89.29 Other chronic pain (principal); M54.5 Low back pain; R07.89 Other chest pain; R55 Syncope and collapse; I11.0 Hypertensive heart disease with heart failure; I50.9 Heart failure, unspecified; I51.7 Cardiomegaly; I25.10 Atherosclerotic heart disease of native coronary artery without angina pectoris; M19.90 Unspecified osteoarthritis, unspecified site; K51.90 Ulcerative colitis, unspecified, without complications; Z79.82 Long term (current) use of aspirin; Z90.49 Acquired absence of other specified parts of digestive tract; Z95.9 Presence of cardiac and vascular implant and graft, unspecified; Z98.890 Other specified postprocedural states
CPT/HCPCS: J2270; J7030

== ENCOUNTER 2017-03-16 12:21 | Inpatient (IN) | payer BC ==
[~2017-03-16] VITALS: Ht 182.9 cm; Wt 109.3 kg
[~2017-03-16 12:21] MED LIST changes: +CORDARONE200 MG/TAB PO; +PRINIVIL10 MG PO
[2017-03-16 12:55] LABS: BASO % 0.7 % (0.0-2.0); EOS # 0.2 (0.0-0.7); EOS % 3.6 % (0-4.0); GRAN # 2.5 (1.4-6.5); GRAN % 59.8 % (42.2-75.2); HEMATOCRIT 40.8 % (42.0-52.0); HEMOGLOBIN 13.9 g/dl (13.5-18.0); LYMPH # 1.1 (1.2-3.4); LYMPH % 25.5 % (20.0-51.0); MEAN CELL VOLUME 89 fl (80.0-100.0); MEAN CORPUSCULAR HEMOGLOBIN 30 pg (27.0-31.0); MEAN CORPUSCULAR HGB CONC 34 g/dl (33.0-37.0); MEAN PLATELET VOLUME 10.5 fl (7.4-10.4); MONO # 0.4 (0.1-0.6); MONO % 10.2 % (1.7-9.3); PLATELET COUNT 178 K/mm3 (130-400); REDCELL DISTRIBUTION WIDTH-CV 13.2 % (11.5-14.5); WHITE BLOOD COUNT 4.2 K/mm3 (4.8-10.8)
[2017-03-16 13:02] LABS: PROTHROMBIN TIME 11.6 SECONDS (9.7-12.8)
[2017-03-16 13:04] LABS: PARTIAL THROMBOPLASTIN TIME 26.6 SECONDS (26.0-37.0)
[2017-03-16 13:14] LABS: ADJUSTED CALCIUM 9.2 mg/dL (8.4-10.2); ALANINE AMINOTRANSFERASE 30 U/L (21-72); ALKALINE PHOSPHATASE 39 U/L (50-136); ANION GAP 12 mmol/L (7-16); BLOOD UREA NITROGEN 16 mg/dL (9-20); CALCIUM 9.2 mg/dL (8.4-10.2); CARBON DIOXIDE 26 mmol/L (22-30); CHLORIDE 101 mmol/L (98-107); CREATININE, serum 0.89 mg/dL (0.66-1.25); GLUCOSE 101 mg/dL (74-106); POTASSIUM 3.8 mmol/L (3.4-5.0); SODIUM 140 mmol/L (137-145); TOTAL PROTEIN 6.9 gm/dL (6.4-8.2)
[2017-03-16] MEDS ORDERED: CATAPRES 0.1MG0.1 MG PO (13:15)
[2017-03-16] MEDS ORDERED: HCTZ 25MG TAB25 MG PO (13:15)
[2017-03-16 13:26] LABS: B-TYPE NATRIURETIC PEPTIDE 116 pg/mL (0-125)
[2017-03-16 13:55] LABS: TROPONIN-I < 0.012 ng/mL (0.000-0.034)
[2017-03-16 15:47] LABS: TROPONIN-I < 0.012 ng/mL (0.000-0.034)
[2017-03-16] MEDS ORDERED: NORCO 325 MG-51 TAB PO (16:30)
[2017-03-16 18:06] VITALS: BP 154/106; PULSE 56; TEMP 98.5
[2017-03-16 19:42] VITALS: BP 164/109; PULSE 63; TEMP 97.8
[2017-03-16 20:12] LABS: MAGNESIUM 1.9 mg/dL (1.6-2.3)
[2017-03-16 20:43] LABS: THYROID STIMULATING HORMONE 0.515 uIU/mL (0.465-4.680)
[2017-03-16 23:09] VITALS: BP 153/81; PULSE 68; TEMP 97.4
[2017-03-17 09:34] VITALS: BP 137/100; PULSE 58; TEMP 97.5
[2017-03-17 12:40] VITALS: BP 131/88; PULSE 59; TEMP 98
[2017-03-17 15:52] VITALS: BP 141/87; PULSE 65; TEMP 98.4
[2017-03-17 20:47] VITALS: BP 137/80; PULSE 62; TEMP 97.9
[2017-03-18] VITALS (9 sets, daily range): BP systolic 119–190; BP diastolic 71–114; PULSE 59–75; TEMP 97.5–98.3
[2017-03-19 04:11] VITALS: BP 135/91; PULSE 59; TEMP 98.5
[2017-03-19 07:52] VITALS: BP 153/108; PULSE 64; TEMP 98.5
[2017-03-19 11:28] VITALS: BP 154/92; PULSE 59; TEMP 97.5
[2017-03-19 15:43] VITALS: BP 120/70; PULSE 82; TEMP 98
== END 2017-03-19 15:30 | disposition home or self-care (01) | DRG 261 ==
LOC: COL.ER 12:21 → MEDICAL 16:42
PROVIDERS: Family Medicine
PROC: 0JH602Z Insertion of Monitoring Device into Chest Subcutaneous Tissue and Fascia, Open Approach (ICD-10-PCS; principal; 2017-03-18)
DX: R55 Syncope and collapse (principal); I42.0 Dilated cardiomyopathy; I50.22 Chronic systolic (congestive) heart failure; K51.90 Ulcerative colitis, unspecified, without complications; I11.0 Hypertensive heart disease with heart failure; I25.10 Atherosclerotic heart disease of native coronary artery without angina pectoris; Z95.810 Presence of automatic (implantable) cardiac defibrillator; G47.33 Obstructive sleep apnea (adult) (pediatric)
CPT/HCPCS: 99223-AI; 99232-AI; 99239; A9585; C1764; J0360; J1650; J2270; J7030; Q9967

== ENCOUNTER 2017-03-25 17:02 | Emergency (ER) | payer BC, OTHER ==
[2009-04-11 02:41] VITALS: BP 136/95
[~2017-03-25] VITALS: Ht 182.9 cm; Wt 106.8 kg
[~2017-03-25 17:02] MED LIST changes: +HCTZ 25MG TAB25 MG PO
[2017-03-25 17:03] VITALS: TEMP 97.2
[2017-03-25 17:26] LABS: BASO % 0.7 % (0.0-2.0); EOS # 0.2 (0.0-0.7); EOS % 3.8 % (0-4.0); GRAN # 2.7 (1.4-6.5); HEMATOCRIT 40.5 % (42.0-52.0); HEMOGLOBIN 13.8 g/dl (13.5-18.0); LYMPH # 1.8 (1.2-3.4); LYMPH % 31.3 % (20.0-51.0); MEAN CELL VOLUME 88 fl (80.0-100.0); MEAN CORPUSCULAR HEMOGLOBIN 30 pg (27.0-31.0); MEAN CORPUSCULAR HGB CONC 34 g/dl (33.0-37.0); MEAN PLATELET VOLUME 10.2 fl (7.4-10.4); MONO # 0.8 (0.1-0.6); PLATELET COUNT 165 K/mm3 (130-400); RED BLOOD COUNT 4.59 M/mm3 (4.20-5.60); REDCELL DISTRIBUTION WIDTH-CV 13.1 % (11.5-14.5); WHITE BLOOD COUNT 5.6 K/mm3 (4.8-10.8)
[2017-03-25 17:31] LABS: PROTHROMBIN TIME 11.6 SECONDS (9.7-12.8)
[2017-03-25 17:34] LABS: PARTIAL THROMBOPLASTIN TIME 28.8 SECONDS (26.0-37.0)
[2017-03-25 17:41] LABS: ADJUSTED CALCIUM 8.5 mg/dL (8.4-10.2); ALANINE AMINOTRANSFERASE 35 U/L (21-72); ALKALINE PHOSPHATASE 39 U/L (50-136); ANION GAP 11 mmol/L (7-16); BILIRUBIN,TOTAL 0.7 mg/dL (0.0-1.0); BLOOD UREA NITROGEN 37 mg/dL (9-20); CALCIUM 8.5 mg/dL (8.4-10.2); CARBON DIOXIDE 26 mmol/L (22-30); CHLORIDE 102 mmol/L (98-107); CREATININE, serum 1.53 mg/dL (0.66-1.25); GLUCOSE 105 mg/dL (74-106); POTASSIUM 4.2 mmol/L (3.4-5.0); SODIUM 139 mmol/L (137-145); TOTAL PROTEIN 6.7 gm/dL (6.4-8.2)
[2017-03-25 17:45] LABS: C-REACTIVE PROTEIN < 0.5 mg/dL (0.0-0.9)
[2017-03-25 17:50] LABS: TROPONIN-I < 0.012 ng/mL (0.000-0.034)
[2017-03-25 19:56] VITALS: BP 109/64; PULSE 67
== END 2017-03-25 19:59 | disposition home or self-care (01) ==
LOC: COL.ER 17:02
PROVIDERS: Family Medicine
DX: R07.89 Other chest pain (principal); R55 Syncope and collapse; I42.9 Cardiomyopathy, unspecified; I10 Essential (primary) hypertension; Z87.891 Personal history of nicotine dependence
CPT/HCPCS: J1885

== ENCOUNTER 2017-04-17 00:18 | Emergency (ER) | payer BC ==
[2009-04-11 02:41] VITALS: BP 136/95
[~2017-04-17] VITALS: Ht 182.9 cm; Wt 104.5 kg
[2017-04-17 00:19] VITALS: TEMP 98.1
[2017-04-17 00:49] LABS: BASO % 0.6 % (0.0-2.0); EOS # 0.1 (0.0-0.7); GRAN # 4.1 (1.4-6.5); GRAN % 59.1 % (42.2-75.2); HEMATOCRIT 44.6 % (42.0-52.0); HEMOGLOBIN 15.2 g/dl (13.5-18.0); LYMPH # 1.9 (1.2-3.4); LYMPH % 27.3 % (20.0-51.0); MEAN CELL VOLUME 87 fl (80.0-100.0); MEAN CORPUSCULAR HEMOGLOBIN 30 pg (27.0-31.0); MEAN CORPUSCULAR HGB CONC 34 g/dl (33.0-37.0); MEAN PLATELET VOLUME 10.8 fl (7.4-10.4); MONO # 0.8 (0.1-0.6); MONO % 10.7 % (1.7-9.3); PLATELET COUNT 190 K/mm3 (130-400); RED BLOOD COUNT 5.15 M/mm3 (4.20-5.60); REDCELL DISTRIBUTION WIDTH-CV 12.5 % (11.5-14.5)
[2017-04-17 01:10] LABS: ADJUSTED CALCIUM 8.7 mg/dL (8.4-10.2); ALANINE AMINOTRANSFERASE 34 U/L (21-72); ALBUMIN 4.6 gm/dL (3.5-5.0); ALKALINE PHOSPHATASE 44 U/L (50-136); ANION GAP 14 mmol/L (7-16); BILIRUBIN,TOTAL 0.6 mg/dL (0.0-1.0); BLOOD UREA NITROGEN 13 mg/dL (9-20); CALCIUM 9.2 mg/dL (8.4-10.2); CARBON DIOXIDE 25 mmol/L (22-30); CHLORIDE 104 mmol/L (98-107); CREATININE, serum 0.86 mg/dL (0.66-1.25); GLUCOSE 109 mg/dL (74-106); POTASSIUM 3.3 mmol/L (3.4-5.0); SODIUM 143 mmol/L (137-145); TOTAL PROTEIN 7.7 gm/dL (6.4-8.2)
[2017-04-17 01:21] LABS: B-TYPE NATRIURETIC PEPTIDE 1020 pg/mL (0-125)
[2017-04-17 01:25] LABS: TROPONIN-I < 0.012 ng/mL (0.000-0.034)
[2017-04-17] MEDS ORDERED: K-DUR 10 MEQ T10 MEQ PO (03:03)
[2017-04-17 03:06] VITALS: BP 156/106; PULSE 77
== END 2017-04-17 03:06 | disposition home or self-care (01) ==
LOC: COL.ER 00:18
PROVIDERS: Emergency Medicine
DX: R07.9 Chest pain, unspecified (principal); E87.6 Hypokalemia; R11.10 Vomiting, unspecified; I10 Essential (primary) hypertension; I42.9 Cardiomyopathy, unspecified; K51.90 Ulcerative colitis, unspecified, without complications
CPT/HCPCS: J3475

== ENCOUNTER → 2017-04-24 | Outpatient (CLI) | payer BC ==
[~2017-04-24] MED LIST changes: +CEPHALEXIN500 M1 PO; +COREG 25MG25 MG/TAB PO; +K-DUR 10 MEQ T10 MEQ PO; +K-TAB10 PO
== END ==
LOC: COL.VAS 10:00
DX: I35.1 Nonrheumatic aortic (valve) insufficiency (principal); I42.9 Cardiomyopathy, unspecified; R79.89 Other specified abnormal findings of blood chemistry

== ENCOUNTER 2017-05-07 01:19 | Emergency (ER) | payer BC ==
[2009-04-11 02:41] VITALS: BP 136/95
[~2017-05-07] VITALS: Ht 182.9 cm; Wt 106.4 kg
[~2017-05-07 01:19] MED LIST changes: -CEPHALEXIN500 M1 PO; -COREG 25MG25 MG/TAB PO; -K-TAB10 PO
[2017-05-07 01:21] VITALS: TEMP 98.6
[2017-05-07] MEDS ORDERED: CEPHALEXIN500 M1 PO (02:57)
[2017-05-07 03:18] VITALS: BP 150/101; PULSE 85
== END 2017-05-07 03:21 | disposition home or self-care (01) ==
LOC: COL.ER 01:19
DX: S61.212A Laceration without foreign body of right middle finger without damage to nail, initial encounter (principal); I11.0 Hypertensive heart disease with heart failure; W45.8XXA Other foreign body or object entering through skin, initial encounter

== ENCOUNTER 2017-05-13 15:00 | Emergency (ER) | payer SELFPAY ==
[~2017-05-13 15:00] MED LIST changes: +CEPHALEXIN500 M1 PO
[2017-05-13 15:09] VITALS: BP 142/86; PULSE 97; TEMP 98.4
== END 2017-05-13 15:27 | disposition home or self-care (01) ==
LOC: COL.ER 15:00
DX: S61.210D Laceration without foreign body of right index finger without damage to nail, subsequent encounter (principal); X58.XXXD Exposure to other specified factors, subsequent encounter

== ENCOUNTER 2017-05-21 10:30 | Observation (INO) | payer BC ==
[~2017-05-21] VITALS: Ht 185.4 cm; Wt 109.2 kg
[2017-05-21] MEDS ORDERED: LEVBID0.375 MG PO (10:57)
[2017-05-21] MEDS ORDERED: IMURAN 50MG TAB50 MG PO (10:57)
[2017-05-21] MEDS ORDERED: K-TAB10 PO (10:59)
[2017-05-21] MEDS ORDERED: KLONOPIN 0.5MG0.5 MG PO (11:00)
[2017-05-21 11:06] LABS: BASO % 0.6 % (0.0-2.0); EOS # 0.2 (0.0-0.7); EOS % 2.8 % (0-4.0); GRAN # 3.1 (1.4-6.5); GRAN % 58.3 % (42.2-75.2); HEMATOCRIT 42.4 % (42.0-52.0); HEMOGLOBIN 14.1 g/dl (13.5-18.0); LYMPH # 1.4 (1.2-3.4); LYMPH % 26.9 % (20.0-51.0); MEAN CELL VOLUME 89 fl (80.0-100.0); MEAN CORPUSCULAR HEMOGLOBIN 30 pg (27.0-31.0); MEAN CORPUSCULAR HGB CONC 33 g/dl (33.0-37.0); MEAN PLATELET VOLUME 10.7 fl (7.4-10.4); MONO # 0.6 (0.1-0.6); MONO % 11.2 % (1.7-9.3); PLATELET COUNT 187 K/mm3 (130-400); RED BLOOD COUNT 4.75 M/mm3 (4.20-5.60); REDCELL DISTRIBUTION WIDTH-CV 14.6 % (11.5-14.5); WHITE BLOOD COUNT 5.3 K/mm3 (4.8-10.8)
[2017-05-21 11:12] LABS: INR 1.1 (0.8-3.0); PROTHROMBIN TIME 11.8 SECONDS (9.7-12.8)
[2017-05-21 11:19] LABS: ADJUSTED CALCIUM 8.7 mg/dL (8.4-10.2); ALANINE AMINOTRANSFERASE 56 U/L (21-72); ALBUMIN 4.2 gm/dL (3.5-5.0); ALKALINE PHOSPHATASE 50 U/L (50-136); ANION GAP 10 mmol/L (7-16); BILIRUBIN,TOTAL 0.6 mg/dL (0.0-1.0); BLOOD UREA NITROGEN 16 mg/dL (9-20); CALCIUM 8.9 mg/dL (8.4-10.2); CARBON DIOXIDE 26 mmol/L (22-30); CHLORIDE 103 mmol/L (98-107); CREATINE KINASE 363 U/L (55-170); CREATININE, serum 0.98 mg/dL (0.66-1.25); GLUCOSE 97 mg/dL (74-106); LIPASE 136 U/L (23-300); POTASSIUM 4.3 mmol/L (3.4-5.0); SODIUM 139 mmol/L (137-145); TOTAL PROTEIN 7.1 gm/dL (6.4-8.2)
[2017-05-21 11:30] LABS: B-TYPE NATRIURETIC PEPTIDE 42 pg/mL (0-125)
[2017-05-21 11:35] LABS: TROPONIN-I < 0.012 ng/mL (0.000-0.034)
[2017-05-21 13:29] VITALS: BP 99/56; PULSE 54
[2017-05-21] MEDS ORDERED: PERCOCET 325 MG1 TA3 PO (16:36)
[2017-05-21] MEDS ORDERED: THE MEDICINE S200 M2 PO (16:36)
[2017-05-21 16:43] VITALS: BP 106/68; PULSE 56; TEMP 98.1
[2017-05-21 16:53] LABS: ACETAMINOPHEN < 10 ug/mL (10-30)
[2017-05-21 17:52] LABS: AMPHETAMINE URINE NEGATIVE; BARBITURATES URINE NEGATIVE; BENZODIAZEPINES URINE NEGATIVE; BUPRENORPHINE URINE NEGATIVE; METHADONE URINE NEGATIVE; OPIATES URINE NEGATIVE; OXYCODONE URINE NEGATIVE; PHENCYCLIDINE URINE NEGATIVE; PROPOXYPHENE URINE NEGATIVE; THC CANNABINOIDS URINE NEGATIVE
[2017-05-21 19:32] VITALS: BP 112/77; PULSE 56; TEMP 97.7
[2017-05-21 23:32] VITALS: BP 105/66; PULSE 51; TEMP 97.7
[2017-05-22 03:37] VITALS: BP 123/75; PULSE 46; TEMP 97.9
[2017-05-22 08:03] VITALS: BP 127/80; PULSE 57; TEMP 98.5
[2017-05-22 11:40] VITALS: BP 131/60; PULSE 59; TEMP 98
[2017-05-22 15:09] VITALS: BP 140/64; PULSE 67; TEMP 98.6
== END 2017-05-22 17:00 | disposition home or self-care (01) ==
LOC: COL.ER 10:30 → MEDICAL 14:07
PROVIDERS: Emergency Medicine; Physician Assistant
DX: I95.9 Hypotension, unspecified (principal); I63.9 Cerebral infarction, unspecified; I42.0 Dilated cardiomyopathy; I08.0 Rheumatic disorders of both mitral and aortic valves; G47.33 Obstructive sleep apnea (adult) (pediatric); I47.2 Ventricular tachycardia; K51.90 Ulcerative colitis, unspecified, without complications; I11.0 Hypertensive heart disease with heart failure; I50.9 Heart failure, unspecified; M54.9 Dorsalgia, unspecified; I31.9 Disease of pericardium, unspecified; R55 Syncope and collapse; R53.83 Other fatigue; R41.82 Altered mental status, unspecified; Z90.49 Acquired absence of other specified parts of digestive tract; Z83.3 Family history of diabetes mellitus; Z82.49 Family history of ischemic heart disease and other diseases of the circulatory system; Z82.3 Family history of stroke; Z95.818 Presence of other cardiac implants and grafts
CPT/HCPCS: 99223-AI; G0378; G8978-GP; G8979-GP; G8987-GO; G8988-GO; G8996-GN; G8997-GN; J1650; J2550; J7030; J7040

== ENCOUNTER 2017-06-30 10:10 | Observation (INO) | payer BC ==
[~2017-06-30] VITALS: Ht 182.9 cm; Wt 110.7 kg
[2017-06-30] VITALS (367 sets, daily range): BP systolic 103–108; BP diastolic 56–64; PULSE 63–72; TEMP 97.1; O2SAT 77–100
[~2017-06-30 10:10] MED LIST changes: +K-TAB10 PO
[2017-06-30] MEDS ORDERED: CATAPRES 0.1MG0.1 MG PO ×2 (10:20→16:47)
[2017-06-30 14:03] LABS: AMPHETAMINE URINE NEGATIVE; BARBITURATES URINE NEGATIVE; BENZODIAZEPINES URINE NEGATIVE; BUPRENORPHINE URINE NEGATIVE; METHADONE URINE NEGATIVE; OPIATES URINE NEGATIVE; OXYCODONE URINE NEGATIVE; PHENCYCLIDINE URINE NEGATIVE; PROPOXYPHENE URINE NEGATIVE; THC CANNABINOIDS URINE NEGATIVE
[2017-06-30 14:23] LABS: BASO % 0.7 % (0.0-2.0); EOS # 0.4 (0.0-0.7); EOS % 6.5 % (0-4.0); GRAN # 2.7 (1.4-6.5); GRAN % 47.7 % (42.2-75.2); HEMATOCRIT 42.1 % (42.0-52.0); HEMOGLOBIN 14.1 g/dl (13.5-18.0); LYMPH # 1.9 (1.2-3.4); LYMPH % 33.5 % (20.0-51.0); MEAN CELL VOLUME 92 fl (80.0-100.0); MEAN CORPUSCULAR HEMOGLOBIN 31 pg (27.0-31.0); MEAN CORPUSCULAR HGB CONC 34 g/dl (33.0-37.0); MEAN PLATELET VOLUME 10.8 fl (7.4-10.4); MONO # 0.6 (0.1-0.6); MONO % 11.2 % (1.7-9.3); PLATELET COUNT 174 K/mm3 (130-400); RED BLOOD COUNT 4.58 M/mm3 (4.20-5.60); REDCELL DISTRIBUTION WIDTH-CV 14.2 % (11.5-14.5); WHITE BLOOD COUNT 5.7 K/mm3 (4.8-10.8)
[2017-06-30 14:34] LABS: ADJUSTED CALCIUM 8.7 mg/dL (8.4-10.2); ALANINE AMINOTRANSFERASE 63 U/L (21-72); ALBUMIN 4.1 gm/dL (3.5-5.0); ALKALINE PHOSPHATASE 46 U/L (50-136); ANION GAP 12 mmol/L (7-16); BILIRUBIN,TOTAL 0.6 mg/dL (0.0-1.0); BLOOD UREA NITROGEN 30 mg/dL (9-20); CALCIUM 8.8 mg/dL (8.4-10.2); CARBON DIOXIDE 24 mmol/L (22-30); CHLORIDE 101 mmol/L (98-107); CREATININE, serum 1.45 mg/dL (0.66-1.25); GLUCOSE 106 mg/dL (74-106); POTASSIUM 3.8 mmol/L (3.4-5.0); SODIUM 136 mmol/L (137-145)
[2017-06-30 14:35] LABS: ACETAMINOPHEN < 10 ug/mL (10-30); SALICYLATE < 1.0 mg/dL
[2017-06-30 14:48] LABS: TROPONIN-I < 0.012 ng/mL (0.000-0.034)
[2017-06-30] MEDS ORDERED: COREG 25MG25 MG/TAB PO (17:08)
[2017-07-01] VITALS (579 sets, daily range): BP systolic 89–105; BP diastolic 63–74; PULSE 56–63; TEMP 97.2–97.7; O2SAT 82–100
[2017-07-01 06:01] LABS: BASO % 0.8 % (0.0-2.0); EOS # 0.3 (0.0-0.7); GRAN # 2.1 (1.4-6.5); HEMATOCRIT 43.6 % (42.0-52.0); HEMOGLOBIN 14.6 g/dl (13.5-18.0); LYMPH # 1.8 (1.2-3.4); LYMPH % 36.2 % (20.0-51.0); MEAN CELL VOLUME 93 fl (80.0-100.0); MEAN CORPUSCULAR HEMOGLOBIN 31 pg (27.0-31.0); MEAN CORPUSCULAR HGB CONC 34 g/dl (33.0-37.0); MEAN PLATELET VOLUME 10.9 fl (7.4-10.4); MONO # 0.6 (0.1-0.6); MONO % 12.6 % (1.7-9.3); PLATELET COUNT 151 K/mm3 (130-400); RED BLOOD COUNT 4.71 M/mm3 (4.20-5.60); REDCELL DISTRIBUTION WIDTH-CV 14.4 % (11.5-14.5); WHITE BLOOD COUNT 4.8 K/mm3 (4.8-10.8)
[2017-07-01 06:19] LABS: CALCIUM 9.4 mg/dL (8.4-10.2); CREATININE, serum 1.07 mg/dL (0.66-1.25); POTASSIUM 4.9 mmol/L (3.4-5.0)
== END 2017-07-01 11:30 | disposition home or self-care (01) ==
LOC: COL.ER 10:10 → ICU 14:44 → COL.ER 14:44 → ICU 07-01 11:30
PROVIDERS: Family Medicine; Physician Assistant
DX: T50.991A Poisoning by other drugs, medicaments and biological substances, accidental (unintentional), initial encounter (principal); I42.0 Dilated cardiomyopathy; I10 Essential (primary) hypertension; E78.5 Hyperlipidemia, unspecified; F32.9 Major depressive disorder, single episode, unspecified; I08.0 Rheumatic disorders of both mitral and aortic valves; Z95.818 Presence of other cardiac implants and grafts; Z90.49 Acquired absence of other specified parts of digestive tract; Z82.49 Family history of ischemic heart disease and other diseases of the circulatory system
CPT/HCPCS: 99223-AI; G0378; G8978-GP; G8979-GP; J0610; J7040

== ENCOUNTER 2017-09-19 13:48 | Observation (INO) | payer BC ==
[2017-09-19] VITALS (367 sets, daily range): BP systolic 135–167; BP diastolic 86–106; PULSE 80–98; TEMP 97.2–98.1; O2SAT 87–99
[~2017-09-19] VITALS: Ht 182.9 cm; Wt 115.0 kg
[~2017-09-19 13:48] MED LIST changes: +COREG 25MG25 MG/TAB PO; +KLONOPIN 1MG1 MG PO; +NORVASC 10MG10 MG PO; +OXAYDO7.5 MG PO
[2017-09-19 14:40] LABS: BASO % 0.8 % (0.0-2.0); EOS # 0.2 (0.0-0.7); EOS % 4.6 % (0-4.0); GRAN # 2.6 (1.4-6.5); GRAN % 51.8 % (42.2-75.2); HEMATOCRIT 45.4 % (42.0-52.0); HEMOGLOBIN 15.6 g/dl (13.5-18.0); LYMPH # 1.5 (1.2-3.4); LYMPH % 30.2 % (20.0-51.0); MEAN CELL VOLUME 91 fl (80.0-100.0); MEAN CORPUSCULAR HEMOGLOBIN 31 pg (27.0-31.0); MEAN CORPUSCULAR HGB CONC 34 g/dl (33.0-37.0); MEAN PLATELET VOLUME 10.6 fl (7.4-10.4); MONO # 0.6 (0.1-0.6); MONO % 12.4 % (1.7-9.3); PLATELET COUNT 198 K/mm3 (130-400); RED BLOOD COUNT 4.97 M/mm3 (4.20-5.60)
[2017-09-19 14:47] LABS: PROTHROMBIN TIME 11.2 SECONDS (9.7-12.8)
[2017-09-19 14:49] LABS: PARTIAL THROMBOPLASTIN TIME 28.6 SECONDS (26.0-37.0)
[2017-09-19 14:54] LABS: ADJUSTED CALCIUM 8.9 mg/dL (8.4-10.2); ALANINE AMINOTRANSFERASE 76 U/L (21-72); ALBUMIN 4.6 gm/dL (3.5-5.0); ALKALINE PHOSPHATASE 54 U/L (50-136); ANION GAP 11 mmol/L (7-16); BILIRUBIN,TOTAL 0.5 mg/dL (0.0-1.0); BLOOD UREA NITROGEN 14 mg/dL (9-20); CALCIUM 9.4 mg/dL (8.4-10.2); CARBON DIOXIDE 25 mmol/L (22-30); CHLORIDE 107 mmol/L (98-107); CREATININE, serum 0.88 mg/dL (0.66-1.25); GLUCOSE 97 mg/dL (74-106); POTASSIUM 3.9 mmol/L (3.4-5.0); SODIUM 143 mmol/L (137-145); TOTAL PROTEIN 7.8 gm/dL (6.4-8.2)
[2017-09-19 15:06] LABS: B-TYPE NATRIURETIC PEPTIDE 59 pg/mL (0-125)
[2017-09-19 15:09] LABS: ALCOHOL(ethanol),MEDICAL < 10 mg/dL; TROPONIN-I < 0.012 ng/mL (0.000-0.034)
[2017-09-19 15:25] LABS: AMPHETAMINE URINE NEGATIVE; BARBITURATES URINE NEGATIVE; BENZODIAZEPINES URINE NEGATIVE; BUPRENORPHINE URINE NEGATIVE; METHADONE URINE NEGATIVE; OPIATES URINE NEGATIVE; OXYCODONE URINE POSITIVE; PHENCYCLIDINE URINE NEGATIVE; PROPOXYPHENE URINE NEGATIVE; THC CANNABINOIDS URINE NEGATIVE; TRICYCLIC ANTIDEPRESS URINE NEGATIVE
[2017-09-19] MEDS ORDERED: PERCOCET 325 MG1 TA3 PO (17:46)
[2017-09-19 20:51] LABS: PROLACTIN 9.4 ng/mL (3.7-17.9)
[2017-09-20] VITALS (575 sets, daily range): BP systolic 103–127; BP diastolic 68–81; PULSE 66–77; TEMP 97–97.8; O2SAT 84–100
[2017-09-20 05:52] LABS: BASO % 0.7 % (0.0-2.0); EOS # 0.2 (0.0-0.7); EOS % 4.9 % (0-4.0); GRAN # 1.7 (1.4-6.5); GRAN % 37.4 % (42.2-75.2); HEMATOCRIT 43.8 % (42.0-52.0); HEMOGLOBIN 14.8 g/dl (13.5-18.0); LYMPH % 44.2 % (20.0-51.0); MEAN CELL VOLUME 92 fl (80.0-100.0); MEAN CORPUSCULAR HEMOGLOBIN 31 pg (27.0-31.0); MEAN CORPUSCULAR HGB CONC 34 g/dl (33.0-37.0); MEAN PLATELET VOLUME 10.5 fl (7.4-10.4); MONO # 0.6 (0.1-0.6); MONO % 12.6 % (1.7-9.3); PLATELET COUNT 189 K/mm3 (130-400); RED BLOOD COUNT 4.77 M/mm3 (4.20-5.60); WHITE BLOOD COUNT 4.5 K/mm3 (4.8-10.8)
[2017-09-20 06:03] LABS: CALCIUM 9.3 mg/dL (8.4-10.2); CREATININE, serum 0.78 mg/dL (0.66-1.25); POTASSIUM 3.6 mmol/L (3.4-5.0)
== END 2017-09-20 10:23 | disposition home or self-care (01) ==
LOC: COL.ER 13:48 → ICU 15:35
PROVIDERS: Emergency Medicine; Family Medicine; Nurse Practitioner Family
DX: R29.898 Other symptoms and signs involving the musculoskeletal system (principal); R41.82 Altered mental status, unspecified; I10 Essential (primary) hypertension; R51 Headache; M54.9 Dorsalgia, unspecified; G89.29 Other chronic pain; Z79.891 Long term (current) use of opiate analgesic; K51.90 Ulcerative colitis, unspecified, without complications; Z88.5 Allergy status to narcotic agent; Z88.0 Allergy status to penicillin; Z45.09 Encounter for adjustment and management of other cardiac device; Z79.82 Long term (current) use of aspirin; G62.9 Polyneuropathy, unspecified
CPT/HCPCS: G0378; J0360; J1650; J3010

== ENCOUNTER 2017-10-10 20:21 | Emergency (ER) | payer BC ==
[2009-04-11 02:41] VITALS: BP 136/95
[~2017-10-10] VITALS: Ht 182.9 cm; Wt 112.3 kg
[2017-10-10 20:22] VITALS: TEMP 97.9
[2017-10-10 20:36] LABS: BASO % 0.5 % (0.0-2.0); EOS # 0.1 (0.0-0.7); EOS % 1.3 % (0-4.0); GRAN # 5.1 (1.4-6.5); GRAN % 63.9 % (42.2-75.2); HEMOGLOBIN 15.5 g/dl (13.5-18.0); LYMPH # 1.8 (1.2-3.4); LYMPH % 22.3 % (20.0-51.0); MEAN CELL VOLUME 90 fl (80.0-100.0); MEAN CORPUSCULAR HEMOGLOBIN 31 pg (27.0-31.0); MEAN CORPUSCULAR HGB CONC 34 g/dl (33.0-37.0); MEAN PLATELET VOLUME 10.4 fl (7.4-10.4); MONO # 0.9 (0.1-0.6); MONO % 11.9 % (1.7-9.3); PLATELET COUNT 212 K/mm3 (130-400); RED BLOOD COUNT 5.02 M/mm3 (4.20-5.60); REDCELL DISTRIBUTION WIDTH-CV 12.5 % (11.5-14.5)
[2017-10-10 20:47] LABS: ALBUMIN 4.5 gm/dL (3.5-5.0); BILIRUBIN,TOTAL 0.6 mg/dL (0.0-1.0); CREATININE, serum 1.72 mg/dL (0.66-1.25); POTASSIUM 3.5 mmol/L (3.4-5.0); TOTAL PROTEIN 7.5 gm/dL (6.4-8.2)
[2017-10-10 21:41] LABS: COLLECTION METHOD CLEAN CATCH
[2017-10-10 21:54] LABS: TRICYCLIC ANTIDEPRESS URINE POSITIVE
[2017-10-10 21:57] LABS: AMORPHOUS CRYSTAL Present /uL; HYALINE CAST >12 /lpf; MUCOUS Present /lpf; PH 5 (5-8); SQUAMOUS EPITHELIAL 0-2 /hpf; URINE APPEARANCE Cloudy; URINE BACTERIA Occasional /hpf; URINE BILIRUBIN Negative (NEGATIVE); URINE BLOOD 1+ (NEGATIVE); URINE COLOR Amber; URINE GLUCOSE 1+ (NEGATIVE); URINE KETONE Trace (NEGATIVE); URINE LEUKOCYTE ESTERASE Negative (NEGATIVE); URINE NITRATE Negative (NEGATIVE); URINE PROTEIN(semi-quant) 3+ (NEGATIVE); URINE UROBILINOGEN Negative (NEGATIVE)
[2017-10-10] MEDS ORDERED: MACROBID 1100 MG/CAP PO (22:19)
[2017-10-10 22:20] VITALS: BP 118/62; PULSE 86
== END 2017-10-10 22:29 | disposition home or self-care (01) ==
LOC: COL.ER 20:21
PROVIDERS: Family Medicine
DX: S06.0X0A Concussion without loss of consciousness, initial encounter (principal); E86.0 Dehydration; F10.129 Alcohol abuse with intoxication, unspecified; N30.90 Cystitis, unspecified without hematuria; Z87.891 Personal history of nicotine dependence; W19.XXXA Unspecified fall, initial encounter; W22.8XXA Striking against or struck by other objects, initial encounter
CPT/HCPCS: J7030

== ENCOUNTER 2017-10-24 15:41 | Emergency (ER) | payer BC ==
[2009-04-11 02:41] VITALS: BP 136/95
[~2017-10-24] VITALS: Ht 182.9 cm; Wt 112.3 kg
[~2017-10-24 15:41] MED LIST changes: +MACROBID 1100 MG/CAP PO
[2017-10-24 15:55] VITALS: TEMP 99
[2017-10-24 16:15] LABS: BASO # 0.1 (0.0-0.2); BASO % 0.6 % (0.0-2.0); EOS # 0.1 (0.0-0.7); EOS % 1.4 % (0-4.0); GRAN # 4.8 (1.4-6.5); GRAN % 59.2 % (42.2-75.2); HEMATOCRIT 46.6 % (42.0-52.0); HEMOGLOBIN 15.8 g/dl (13.5-18.0); LYMPH # 2.2 (1.2-3.4); LYMPH % 27.3 % (20.0-51.0); MEAN CELL VOLUME 92 fl (80.0-100.0); MEAN CORPUSCULAR HEMOGLOBIN 31 pg (27.0-31.0); MEAN CORPUSCULAR HGB CONC 34 g/dl (33.0-37.0); MEAN PLATELET VOLUME 10.7 fl (7.4-10.4); MONO # 0.9 (0.1-0.6); MONO % 11.4 % (1.7-9.3); PLATELET COUNT 214 K/mm3 (130-400); RED BLOOD COUNT 5.09 M/mm3 (4.20-5.60); REDCELL DISTRIBUTION WIDTH-CV 12.8 % (11.5-14.5)
[2017-10-24 16:25] LABS: ALBUMIN 4.8 gm/dL (3.5-5.0); BILIRUBIN,TOTAL 0.9 mg/dL (0.0-1.0); CALCIUM 9.7 mg/dL (8.4-10.2); CREATININE, serum 1.5 mg/dL (0.66-1.25); POTASSIUM 3.9 mmol/L (3.4-5.0)
[2017-10-24 17:41] VITALS: BP 93/75; PULSE 81
== END 2017-10-24 17:53 | disposition home or self-care (01) ==
LOC: COL.ER 15:41
PROVIDERS: Emergency Medicine
DX: R41.82 Altered mental status, unspecified (principal); F32.9 Major depressive disorder, single episode, unspecified; I10 Essential (primary) hypertension; E78.5 Hyperlipidemia, unspecified; Z90.89 Acquired absence of other organs; Z90.49 Acquired absence of other specified parts of digestive tract

== ENCOUNTER 2017-10-25 10:52 | Inpatient (IN) | payer BC ==
[2009-04-11 02:41] VITALS: BP 136/95
[~2017-10-25] VITALS: Ht 182.9 cm; Wt 113.3 kg
[2017-10-25 11:43] LABS: BASO # 0.1 (0.0-0.2); BASO % 0.6 % (0.0-2.0); EOS # 0.2 (0.0-0.7); EOS % 2.3 % (0-4.0); GRAN # 7.6 (1.4-6.5); GRAN % 71.6 % (42.2-75.2); HEMATOCRIT 46.8 % (42.0-52.0); HEMOGLOBIN 15.6 g/dl (13.5-18.0); LYMPH # 1.7 (1.2-3.4); LYMPH % 15.6 % (20.0-51.0); MEAN CELL VOLUME 93 fl (80.0-100.0); MEAN CORPUSCULAR HEMOGLOBIN 31 pg (27.0-31.0); MEAN CORPUSCULAR HGB CONC 33 g/dl (33.0-37.0); MEAN PLATELET VOLUME 10.5 fl (7.4-10.4); MONO % 9.6 % (1.7-9.3); PLATELET COUNT 193 K/mm3 (130-400); RED BLOOD COUNT 5.04 M/mm3 (4.20-5.60); REDCELL DISTRIBUTION WIDTH-CV 13.2 % (11.5-14.5)
[2017-10-25 12:03] LABS: ALANINE AMINOTRANSFERASE 53 U/L (21-72); ALBUMIN 4.8 gm/dL (3.5-5.0); ALKALINE PHOSPHATASE 54 U/L (50-136); ANION GAP 13 mmol/L (7-16); AST,SGOT 34 U/L (15-37); BILIRUBIN,TOTAL 0.9 mg/dL (0.0-1.0); BLOOD UREA NITROGEN 28 mg/dL (9-20); C-REACTIVE PROTEIN 0.6 mg/dL (0.0-0.9); CALCIUM 9.5 mg/dL (8.4-10.2); CARBON DIOXIDE 27 mmol/L (22-30); CHLORIDE 99 mmol/L (98-107); CREATININE, serum 2.93 mg/dL (0.66-1.25); GLUCOSE 83 mg/dL (74-106); POTASSIUM 3.8 mmol/L (3.4-5.0); SODIUM 139 mmol/L (137-145)
[2017-10-25 12:07] LABS: TROPONIN-I < 0.012 ng/mL (0.000-0.034)
[2017-10-25 12:11] LABS: PROLACTIN 14.6 ng/mL (3.7-17.9)
[2017-10-25 12:20] VITALS: BP 95/58; PULSE 75
[2017-10-25 12:42] LABS: COLLECTION METHOD CLEAN CATCH
[2017-10-25 12:51] LABS: MUCOUS Present /lpf; PH 5 (5-8); SQUAMOUS EPITHELIAL None Seen /hpf; URINE APPEARANCE Clear; URINE BACTERIA None Seen /hpf; URINE BILIRUBIN Negative (NEGATIVE); URINE BLOOD Negative (NEGATIVE); URINE COLOR Yellow; URINE GLUCOSE Negative (NEGATIVE); URINE KETONE Negative (NEGATIVE); URINE LEUKOCYTE ESTERASE Negative (NEGATIVE); URINE NITRATE Negative (NEGATIVE); URINE PROTEIN(semi-quant) Negative (NEGATIVE); URINE RBC 0-2 /hpf; URINE UROBILINOGEN Negative (NEGATIVE)
[2017-10-25 13:01] LABS: TRICYCLIC ANTIDEPRESS URINE POSITIVE
[2017-10-25 14:28] VITALS: BP 114/75; PULSE 74; TEMP 98
[2017-10-25 16:32] VITALS: BP 122/81; PULSE 80; TEMP 97.5
[2017-10-25 20:40] VITALS: BP 108/66; PULSE 83; TEMP 98.2
[2017-10-26] VITALS (11 sets, daily range): BP systolic 91–142; BP diastolic 51–103; PULSE 72–90; TEMP 97.2–98.8
[2017-10-26 09:01] LABS: BASO % 0.9 % (0.0-2.0); EOS # 0.2 (0.0-0.7); EOS % 5.2 % (0-4.0); GRAN # 1.7 (1.4-6.5); HEMATOCRIT 44.6 % (42.0-52.0); HEMOGLOBIN 14.8 g/dl (13.5-18.0); LYMPH % 44.7 % (20.0-51.0); MEAN CELL VOLUME 93 fl (80.0-100.0); MEAN CORPUSCULAR HEMOGLOBIN 31 pg (27.0-31.0); MEAN CORPUSCULAR HGB CONC 33 g/dl (33.0-37.0); MEAN PLATELET VOLUME 10.7 fl (7.4-10.4); MONO # 0.5 (0.1-0.6); PLATELET COUNT 171 K/mm3 (130-400); RED BLOOD COUNT 4.79 M/mm3 (4.20-5.60); REDCELL DISTRIBUTION WIDTH-CV 12.9 % (11.5-14.5)
[2017-10-26 09:09] LABS: CALCIUM 9.1 mg/dL (8.4-10.2); CREATININE, serum 1.08 mg/dL (0.66-1.25); POTASSIUM 4.5 mmol/L (3.4-5.0)
== END 2017-10-26 13:09 | disposition home or self-care (01) | DRG 312 ==
LOC: COL.ER 10:52 → MEDICAL 12:54
PROVIDERS: Emergency Medicine; Family Medicine
DX: R55 Syncope and collapse (principal); I50.32 Chronic diastolic (congestive) heart failure; I42.0 Dilated cardiomyopathy; K51.90 Ulcerative colitis, unspecified, without complications; N17.9 Acute kidney failure, unspecified; I13.0 Hypertensive heart and chronic kidney disease with heart failure and stage 1 through stage 4 chronic kidney disease, or unspecified chronic kidney disease; I25.10 Atherosclerotic heart disease of native coronary artery without angina pectoris; N18.9 Chronic kidney disease, unspecified; E86.0 Dehydration; G89.29 Other chronic pain; M54.9 Dorsalgia, unspecified
CPT/HCPCS: 99222-AI; 99239; J1644; J2270; J7030

== ENCOUNTER 2017-12-02 12:28 | Emergency (ER) | payer BC ==
[2009-04-11 02:41] VITALS: BP 136/95
[~2017-12-02] VITALS: Ht 182.9 cm; Wt 115.0 kg
[2017-12-02 12:30] VITALS: TEMP 97.4
[2017-12-02 13:19] LABS: BASO # 0.1 (0.0-0.2); BASO % 0.8 % (0.0-2.0); EOS # 0.2 (0.0-0.7); EOS % 2.6 % (0-4.0); GRAN % 46.1 % (42.2-75.2); HEMOGLOBIN 13.6 g/dl (13.5-18.0); LYMPH # 2.5 (1.2-3.4); LYMPH % 38.7 % (20.0-51.0); MEAN CELL VOLUME 92 fl (80.0-100.0); MEAN CORPUSCULAR HEMOGLOBIN 31 pg (27.0-31.0); MEAN CORPUSCULAR HGB CONC 33 g/dl (33.0-37.0); MEAN PLATELET VOLUME 10.1 fl (7.4-10.4); MONO # 0.7 (0.1-0.6); MONO % 11.3 % (1.7-9.3); PLATELET COUNT 202 K/mm3 (130-400); RED BLOOD COUNT 4.45 M/mm3 (4.20-5.60); REDCELL DISTRIBUTION WIDTH-CV 13.2 % (11.5-14.5)
[2017-12-02 13:32] LABS: ALBUMIN 3.9 gm/dL (3.5-5.0); BILIRUBIN,TOTAL 0.4 mg/dL (0.0-1.0); CALCIUM 9.1 mg/dL (8.4-10.2); CREATININE, serum 1.24 mg/dL (0.66-1.25); POTASSIUM 3.7 mmol/L (3.4-5.0); TOTAL PROTEIN 6.7 gm/dL (6.4-8.2)
[2017-12-02 14:22] LABS: TRICYCLIC ANTIDEPRESS URINE NEGATIVE
[2017-12-02 15:10] VITALS: BP 124/58; PULSE 67
== END 2017-12-02 15:15 | disposition home or self-care (01) ==
LOC: COL.ER 12:28
PROVIDERS: Emergency Medicine
DX: S09.90XA Unspecified injury of head, initial encounter (principal); R55 Syncope and collapse; R40.2412 Glasgow coma scale score 13-15, at arrival to emergency department; I10 Essential (primary) hypertension; I42.8 Other cardiomyopathies; Z86.79 Personal history of other diseases of the circulatory system; Z79.82 Long term (current) use of aspirin; W00.0XXA Fall on same level due to ice and snow, initial encounter; Y92.009 Unspecified place in unspecified non-institutional (private) residence as the place of occurrence of the external cause
CPT/HCPCS: J2310

== ENCOUNTER 2017-12-15 17:05 | Inpatient (IN) | payer BC ==
[~2017-12-15] VITALS: Ht 182.9 cm; Wt 117.3 kg
[2017-12-15] VITALS (221 sets, daily range): BP systolic 80; BP diastolic 64; PULSE 64; TEMP 97.7; O2SAT 69–100
[2017-12-15] MEDS ORDERED: FLONASE NASAL S16 GM NS (17:27)
[2017-12-15 17:36] LABS: BASO % 0.3 % (0.0-2.0); EOS # 0.3 (0.0-0.7); EOS % 2.2 % (0-4.0); GRAN # 7.4 (1.4-6.5); GRAN % 63.6 % (42.2-75.2); HEMATOCRIT 41.8 % (42.0-52.0); HEMOGLOBIN 13.7 g/dl (13.5-18.0); LYMPH # 2.6 (1.2-3.4); LYMPH % 22.6 % (20.0-51.0); MEAN CELL VOLUME 93 fl (80.0-100.0); MEAN CORPUSCULAR HEMOGLOBIN 31 pg (27.0-31.0); MEAN CORPUSCULAR HGB CONC 33 g/dl (33.0-37.0); MEAN PLATELET VOLUME 10.5 fl (7.4-10.4); MONO # 1.3 (0.1-0.6); MONO % 10.9 % (1.7-9.3); PLATELET COUNT 205 K/mm3 (130-400); RED BLOOD COUNT 4.49 M/mm3 (4.20-5.60); REDCELL DISTRIBUTION WIDTH-CV 13.8 % (11.5-14.5)
[2017-12-15 17:46] LABS: ALANINE AMINOTRANSFERASE 47 U/L (21-72); ALKALINE PHOSPHATASE 43 U/L (50-136); ANION GAP 12 mmol/L (7-16); AST,SGOT 27 U/L (15-37); BILIRUBIN,TOTAL 0.5 mg/dL (0.0-1.0); BLOOD UREA NITROGEN 31 mg/dL (9-20); CALCIUM 8.6 mg/dL (8.4-10.2); CARBON DIOXIDE 24 mmol/L (22-30); CHLORIDE 100 mmol/L (98-107); CREATININE, serum 2.85 mg/dL (0.66-1.25); GLUCOSE 97 mg/dL (74-106); POTASSIUM 3.8 mmol/L (3.4-5.0); SODIUM 136 mmol/L (137-145); TOTAL PROTEIN 6.8 gm/dL (6.4-8.2)
[2017-12-15 17:59] LABS: TROPONIN-I < 0.012 ng/mL (0.000-0.034)
[2017-12-15] MEDS ORDERED: ASPIRIN 81M81 MG/TA2 PO (19:54)
[2017-12-15] MEDS ORDERED: LIPITOR 40MG TA40 MG PO (19:55)
[2017-12-16] VITALS (429 sets, daily range): BP systolic 78–149; BP diastolic 42–97; PULSE 67–89; TEMP 97.8–98.7; O2SAT 68–100
[2017-12-16 06:10] LABS: BASO % 0.5 % (0.0-2.0); EOS # 0.2 (0.0-0.7); EOS % 2.8 % (0-4.0); GRAN # 3.3 (1.4-6.5); GRAN % 50.8 % (42.2-75.2); LYMPH # 2.3 (1.2-3.4); LYMPH % 34.9 % (20.0-51.0); MEAN CELL VOLUME 93 fl (80.0-100.0); MEAN CORPUSCULAR HGB CONC 33 g/dl (33.0-37.0); MEAN PLATELET VOLUME 10.6 fl (7.4-10.4); MONO # 0.7 (0.1-0.6); MONO % 10.8 % (1.7-9.3); PLATELET COUNT 151 K/mm3 (130-400); RED BLOOD COUNT 3.82 M/mm3 (4.20-5.60); REDCELL DISTRIBUTION WIDTH-CV 13.6 % (11.5-14.5)
[2017-12-16 06:19] LABS: HEMATOCRIT 35.4 % (42.0-52.0); HEMOGLOBIN 11.5 g/dl (13.5-18.0); MEAN CORPUSCULAR HEMOGLOBIN 30 pg (27.0-31.0)
[2017-12-16 06:24] LABS: CALCIUM 7.7 mg/dL (8.4-10.2); CREATININE, serum 1.97 mg/dL (0.66-1.25); POTASSIUM 4.3 mmol/L (3.4-5.0)
[2017-12-16 07:13] LABS: COLLECTION METHOD CLEAN CATCH
[2017-12-16 07:30] LABS: TRICYCLIC ANTIDEPRESS URINE POSITIVE
[2017-12-16 07:37] LABS: MUCOUS Present /lpf; PH 5 (5-8); SQUAMOUS EPITHELIAL None Seen /hpf; URINE APPEARANCE Clear; URINE BACTERIA None Seen /hpf; URINE BILIRUBIN Negative (NEGATIVE); URINE BLOOD Negative (NEGATIVE); URINE COLOR Yellow; URINE GLUCOSE Negative (NEGATIVE); URINE KETONE Negative (NEGATIVE); URINE LEUKOCYTE ESTERASE Negative (NEGATIVE); URINE NITRATE Negative (NEGATIVE); URINE PROTEIN(semi-quant) Negative (NEGATIVE); URINE RBC 0-2 /hpf; URINE UROBILINOGEN Negative (NEGATIVE); URINE WBC 0-2 /hpf
[2017-12-17 02:41] VITALS: BP 141/88; PULSE 58; TEMP 98.6
[2017-12-17 07:15] VITALS: BP 135/107; PULSE 71; TEMP 98.3
[2017-12-17 10:13] LABS: CALCIUM 9.8 mg/dL (8.4-10.2); CREATININE, serum 0.96 mg/dL (0.66-1.25)
[2017-12-17 11:13] VITALS: BP 169/95; PULSE 70; TEMP 98
[2017-12-17] MEDS ORDERED: NORVASC 5MG5 MG/TAB PO (11:40)
[2017-12-17 12:01] LABS: BASO # 0.1 (0.0-0.2); BASO % 1.1 % (0.0-2.0); EOS # 0.2 (0.0-0.7); EOS % 4.1 % (0-4.0); GRAN # 2.3 (1.4-6.5); GRAN % 48.5 % (42.2-75.2); HEMATOCRIT 47.8 % (42.0-52.0); LYMPH # 1.7 (1.2-3.4); MEAN CELL VOLUME 90 fl (80.0-100.0); MEAN CORPUSCULAR HEMOGLOBIN 30 pg (27.0-31.0); MEAN CORPUSCULAR HGB CONC 34 g/dl (33.0-37.0); MEAN PLATELET VOLUME 10.9 fl (7.4-10.4); MONO # 0.5 (0.1-0.6); MONO % 10.1 % (1.7-9.3); PLATELET COUNT 221 K/mm3 (130-400); REDCELL DISTRIBUTION WIDTH-CV 13.2 % (11.5-14.5)
[2017-12-17 12:04] LABS: HEMOGLOBIN 16.1 g/dl (13.5-18.0)
[2017-12-18] MEDS ORDERED: TOPROL XL100 MG PO (15:43)
[2017-12-18] MEDS ORDERED: FLEXERIL 1010 MG/TAB PO (15:43)
[2017-12-18] MEDS ORDERED: PRINIVIL20 MG PO (15:44)
== END 2017-12-17 14:13 | disposition home or self-care (01) | DRG 315 ==
LOC: COL.ER 17:05 → ICU 18:07 → MEDICAL 12-16 16:33
PROVIDERS: Emergency Medicine; Nurse Practitioner; Physician Assistant
DX: I95.9 Hypotension, unspecified (principal); N17.9 Acute kidney failure, unspecified; I13.0 Hypertensive heart and chronic kidney disease with heart failure and stage 1 through stage 4 chronic kidney disease, or unspecified chronic kidney disease; I50.32 Chronic diastolic (congestive) heart failure; I42.0 Dilated cardiomyopathy; K51.90 Ulcerative colitis, unspecified, without complications; E11.22 Type 2 diabetes mellitus with diabetic chronic kidney disease; N18.9 Chronic kidney disease, unspecified; G89.29 Other chronic pain; M54.9 Dorsalgia, unspecified
CPT/HCPCS: 99233-AI; 99239; J1644; J2310; J7030

== ENCOUNTER 2017-12-18 14:34 | Emergency (ER) | payer BC ==
[2009-04-11 02:41] VITALS: BP 136/95
[~2017-12-18] VITALS: Ht 182.9 cm; Wt 114.5 kg
[~2017-12-18 14:34] MED LIST changes: +ASPIRIN 81M81 MG/TA2 PO; +FLONASE NASAL S16 GM NS; +LIPITOR 40MG TA40 MG PO; +NORVASC 5MG5 MG/TAB PO
[2017-12-18 14:37] VITALS: TEMP 98.1
[2017-12-18 15:12] LABS: BASO % 0.6 % (0.0-2.0); EOS # 0.2 (0.0-0.7); EOS % 2.1 % (0-4.0); GRAN # 4.5 (1.4-6.5); HEMATOCRIT 45.2 % (42.0-52.0); HEMOGLOBIN 15.9 g/dl (13.5-18.0); LYMPH # 1.7 (1.2-3.4); LYMPH % 23.7 % (20.0-51.0); MEAN CELL VOLUME 87 fl (80.0-100.0); MEAN CORPUSCULAR HEMOGLOBIN 31 pg (27.0-31.0); MEAN CORPUSCULAR HGB CONC 35 g/dl (33.0-37.0); MEAN PLATELET VOLUME 10.1 fl (7.4-10.4); MONO # 0.7 (0.1-0.6); MONO % 10.5 % (1.7-9.3); PLATELET COUNT 226 K/mm3 (130-400); RED BLOOD COUNT 5.21 M/mm3 (4.20-5.60)
[2017-12-18] MEDS ORDERED: FLEXERIL 1010 MG/TAB PO (15:43)
[2017-12-18] MEDS ORDERED: TOPROL XL100 MG PO (15:43)
[2017-12-18] MEDS ORDERED: PRINIVIL20 MG PO (15:44)
[2017-12-18 16:17] LABS: ALANINE AMINOTRANSFERASE 54 U/L (21-72); ALKALINE PHOSPHATASE 62 U/L (50-136); ANION GAP 12 mmol/L (7-16); AST,SGOT 30 U/L (15-37); BILIRUBIN,TOTAL 0.4 mg/dL (0.0-1.0); BLOOD UREA NITROGEN 17 mg/dL (9-20); CALCIUM 9.8 mg/dL (8.4-10.2); CARBON DIOXIDE 25 mmol/L (22-30); CHLORIDE 102 mmol/L (98-107); CREATININE, serum 0.95 mg/dL (0.66-1.25); GLUCOSE 133 mg/dL (74-106); POTASSIUM 4.1 mmol/L (3.4-5.0); SODIUM 139 mmol/L (137-145); TOTAL PROTEIN 8.6 gm/dL (6.4-8.2)
[2017-12-18 16:38] LABS: TROPONIN-I < 0.012 ng/mL (0.000-0.034)
[2017-12-18 16:53] VITALS: BP 141/99; PULSE 98
== END 2017-12-18 17:07 | disposition home or self-care (01) ==
LOC: COL.ER 14:34
PROVIDERS: Emergency Medicine
DX: I10 Essential (primary) hypertension (principal); I42.9 Cardiomyopathy, unspecified; Z79.82 Long term (current) use of aspirin; Z79.51 Long term (current) use of inhaled steroids; Z98.890 Other specified postprocedural states
CPT/HCPCS: J7030

== ENCOUNTER → 2018-01-01 | Outpatient (CLI) | payer BC ==
[~2018-01-01] MED LIST changes: +PRINIVIL20 MG PO
== END ==
LOC: COL.RAD 08:09
DX: I10 Essential (primary) hypertension (principal); K44.9 Diaphragmatic hernia without obstruction or gangrene
CPT/HCPCS: Q9967

== ENCOUNTER 2018-01-27 13:01 | Emergency (ER) | payer BC ==
[2009-04-11 02:41] VITALS: BP 136/95
[~2018-01-27] VITALS: Ht 182.9 cm; Wt 111.4 kg
[2018-01-27 13:06] VITALS: TEMP 97
[2018-01-27 13:34] LABS: BASO % 0.6 % (0.0-2.0); EOS # 0.2 (0.0-0.7); EOS % 2.3 % (0-4.0); GRAN # 3.8 (1.4-6.5); GRAN % 58.7 % (42.2-75.2); HEMATOCRIT 43.9 % (42.0-52.0); HEMOGLOBIN 14.8 g/dl (13.5-18.0); LYMPH # 1.6 (1.2-3.4); LYMPH % 25.4 % (20.0-51.0); MEAN CELL VOLUME 88 fl (80.0-100.0); MEAN CORPUSCULAR HEMOGLOBIN 30 pg (27.0-31.0); MEAN CORPUSCULAR HGB CONC 34 g/dl (33.0-37.0); MONO # 0.8 (0.1-0.6); MONO % 12.7 % (1.7-9.3); PLATELET COUNT 216 K/mm3 (130-400); RED BLOOD COUNT 4.99 M/mm3 (4.20-5.60); REDCELL DISTRIBUTION WIDTH-CV 13.3 % (11.5-14.5)
[2018-01-27 13:47] LABS: ALANINE AMINOTRANSFERASE 39 U/L (21-72); ALBUMIN 4.3 gm/dL (3.5-5.0); ALKALINE PHOSPHATASE 64 U/L (50-136); ANION GAP 14 mmol/L (7-16); AST,SGOT 21 U/L (15-37); BILIRUBIN,TOTAL 0.4 mg/dL (0.0-1.0); BLOOD UREA NITROGEN 17 mg/dL (9-20); CALCIUM 9.1 mg/dL (8.4-10.2); CARBON DIOXIDE 25 mmol/L (22-30); CHLORIDE 105 mmol/L (98-107); CREATININE, serum 0.89 mg/dL (0.66-1.25); GLUCOSE 93 mg/dL (74-106); POTASSIUM 3.6 mmol/L (3.4-5.0); SODIUM 143 mmol/L (137-145); TOTAL PROTEIN 8.1 gm/dL (6.4-8.2)
[2018-01-27 13:50] LABS: ALCOHOL(ethanol),MEDICAL < 10 mg/dL; C-REACTIVE PROTEIN < 0.5 mg/dL (0.0-0.9)
[2018-01-27 13:57] LABS: TROPONIN-I < 0.012 ng/mL (0.000-0.034)
[2018-01-27 14:07] LABS: ARTERIAL BLD GAS O2 SATURATION 94.8 % (92-100); ARTERIAL BLD GAS TCO2 CT 27.3; ARTERIAL BLOOD GAS BASE EXCESS 1.4 (-2-2); ARTERIAL BLOOD GAS PCO2 41.2 mmHg (35-45); ARTERIAL BLOOD GAS PO2 73.2 mmHg (80-100); ARTERIAL BLOOD GAS pH 7.42 (7.35-7.45)
[2018-01-27 14:09] LABS: COLLECTION METHOD CLEAN CATCH
[2018-01-27 14:19] LABS: MUCOUS Present /lpf; PH 5 (5-8); SQUAMOUS EPITHELIAL None Seen /hpf; URINE APPEARANCE Clear; URINE BACTERIA None Seen /hpf; URINE BILIRUBIN Negative (NEGATIVE); URINE BLOOD 1+ (NEGATIVE); URINE COLOR Yellow; URINE GLUCOSE 1+ (NEGATIVE); URINE KETONE Negative (NEGATIVE); URINE LEUKOCYTE ESTERASE Negative (NEGATIVE); URINE NITRATE Negative (NEGATIVE); URINE PROTEIN(semi-quant) 2+ (NEGATIVE); URINE RBC 0-2 /hpf; URINE UROBILINOGEN Negative (NEGATIVE)
[2018-01-27] MEDS ORDERED: PRINIVIL20 MG PO (14:22)
[2018-01-27] MEDS ORDERED: PROAMATINE2.5 MG PO (14:23)
[2018-01-27 14:26] LABS: TRICYCLIC ANTIDEPRESS URINE NEGATIVE
[2018-01-27 15:29] VITALS: BP 160/112; PULSE 82
== END 2018-01-27 15:31 | disposition home or self-care (01) ==
LOC: COL.ER 13:01
PROVIDERS: Emergency Medicine
DX: I12.9 Hypertensive chronic kidney disease with stage 1 through stage 4 chronic kidney disease, or unspecified chronic kidney disease (principal); N18.9 Chronic kidney disease, unspecified; R55 Syncope and collapse; I42.9 Cardiomyopathy, unspecified; G89.29 Other chronic pain; Z87.820 Personal history of traumatic brain injury; Z79.82 Long term (current) use of aspirin; Z79.51 Long term (current) use of inhaled steroids
CPT/HCPCS: J7030

== ENCOUNTER 2018-02-09 15:44 | Emergency (ER) | payer BC ==
[2009-04-11 02:41] VITALS: BP 136/95
[~2018-02-09] VITALS: Ht 182.9 cm; Wt 111.8 kg
[~2018-02-09 15:44] MED LIST changes: +PROAMATINE2.5 MG PO
[2018-02-09 16:14] LABS: BASO % 0.5 % (0.0-2.0); EOS % 0.6 % (0-4.0); GRAN # 5.1 (1.4-6.5); GRAN % 78.5 % (42.2-75.2); HEMATOCRIT 38.8 % (42.0-52.0); HEMOGLOBIN 12.8 g/dl (13.5-18.0); LYMPH # 0.9 (1.2-3.4); LYMPH % 13.4 % (20.0-51.0); MEAN CELL VOLUME 91 fl (80.0-100.0); MEAN CORPUSCULAR HEMOGLOBIN 30 pg (27.0-31.0); MEAN CORPUSCULAR HGB CONC 33 g/dl (33.0-37.0); MEAN PLATELET VOLUME 10.4 fl (7.4-10.4); MONO # 0.4 (0.1-0.6); MONO % 6.7 % (1.7-9.3); PLATELET COUNT 184 K/mm3 (130-400); RED BLOOD COUNT 4.25 M/mm3 (4.20-5.60); REDCELL DISTRIBUTION WIDTH-CV 13.7 % (11.5-14.5)
[2018-02-09 16:30] LABS: ALANINE AMINOTRANSFERASE 28 U/L (21-72); ALBUMIN 3.2 gm/dL (3.5-5.0); ALKALINE PHOSPHATASE 47 U/L (50-136); ANION GAP 8 mmol/L (7-16); AST,SGOT 23 U/L (15-37); BILIRUBIN,TOTAL 0.3 mg/dL (0.0-1.0); BLOOD UREA NITROGEN 21 mg/dL (9-20); CALCIUM 8.5 mg/dL (8.4-10.2); CARBON DIOXIDE 23 mmol/L (22-30); CHLORIDE 108 mmol/L (98-107); CREATININE, serum 1.21 mg/dL (0.66-1.25); GLUCOSE 131 mg/dL (74-106); POTASSIUM 4.7 mmol/L (3.4-5.0); SODIUM 140 mmol/L (137-145); TOTAL PROTEIN 6.2 gm/dL (6.4-8.2)
[2018-02-09 16:46] LABS: TROPONIN-I < 0.012 ng/mL (0.000-0.034)
[2018-02-09 18:40] VITALS: BP 103/72; PULSE 59
== END 2018-02-09 18:40 | disposition home or self-care (01) ==
LOC: COL.ER 15:44
PROVIDERS: Emergency Medicine
DX: R55 Syncope and collapse (principal); Z90.49 Acquired absence of other specified parts of digestive tract; Z90.89 Acquired absence of other organs; Z79.82 Long term (current) use of aspirin
CPT/HCPCS: J7030

== ENCOUNTER 2018-03-26 13:25 | Emergency (ER) | payer BC ==
[2009-04-11 02:41] VITALS: BP 136/95
[~2018-03-26] VITALS: Ht 182.9 cm; Wt 109.1 kg
[2018-03-26 13:30] VITALS: TEMP 97.9
[2018-03-26 14:00] LABS: BASO % 0.7 % (0.0-2.0); EOS # 0.2 (0.0-0.7); GRAN # 3.6 (1.4-6.5); GRAN % 66.2 % (42.2-75.2); HEMATOCRIT 41.6 % (42.0-52.0); HEMOGLOBIN 14.1 g/dl (13.5-18.0); LYMPH # 1.1 (1.2-3.4); LYMPH % 21.3 % (20.0-51.0); MEAN CELL VOLUME 89 fl (80.0-100.0); MEAN CORPUSCULAR HEMOGLOBIN 30 pg (27.0-31.0); MEAN CORPUSCULAR HGB CONC 34 g/dl (33.0-37.0); MEAN PLATELET VOLUME 10.9 fl (7.4-10.4); MONO # 0.5 (0.1-0.6); MONO % 8.6 % (1.7-9.3); PLATELET COUNT 191 K/mm3 (130-400)
[2018-03-26 14:15] LABS: ALANINE AMINOTRANSFERASE 32 U/L (21-72); ALBUMIN 3.8 gm/dL (3.5-5.0); ALKALINE PHOSPHATASE 52 U/L (50-136); ANION GAP 14 mmol/L (7-16); AST,SGOT 27 U/L (15-37); BILIRUBIN,TOTAL 0.6 mg/dL (0.0-1.0); BLOOD UREA NITROGEN 22 mg/dL (9-20); CALCIUM 9.3 mg/dL (8.4-10.2); CARBON DIOXIDE 22 mmol/L (22-30); CHLORIDE 102 mmol/L (98-107); CREATINE KINASE 192 U/L (55-170); CREATININE, serum 1.08 mg/dL (0.66-1.25); GLUCOSE 163 mg/dL (74-106); POTASSIUM 3.6 mmol/L (3.4-5.0); SODIUM 138 mmol/L (137-145)
[2018-03-26 14:16] LABS: ALCOHOL(ethanol),MEDICAL < 10 mg/dL
[2018-03-26 14:31] LABS: PROLACTIN 7.3 ng/mL (3.7-17.9); TROPONIN-I < 0.012 ng/mL (0.000-0.034)
[2018-03-26 14:40] LABS: ACETAMINOPHEN < 10 ug/mL (10-30); SALICYLATE < 1.0 mg/dL
[2018-03-26] MEDS ORDERED: ZESTRIL40 MG PO (16:32)
[2018-03-26 17:00] VITALS: BP 115/78; PULSE 60
== END 2018-03-26 17:13 | disposition home or self-care (01) ==
LOC: COL.ER 13:25
PROVIDERS: Emergency Medicine
DX: R55 Syncope and collapse (principal); I95.9 Hypotension, unspecified; Z90.49 Acquired absence of other specified parts of digestive tract; Z98.890 Other specified postprocedural states; Z79.82 Long term (current) use of aspirin; Z79.51 Long term (current) use of inhaled steroids
CPT/HCPCS: J7030

== ENCOUNTER 2018-04-01 14:30 | Emergency (ER) | payer BC ==
[2009-04-11 02:41] VITALS: BP 136/95
[~2018-04-01] VITALS: Ht 182.9 cm; Wt 110.0 kg
[2018-04-01 14:33] VITALS: TEMP 98
[2018-04-01 14:45] LABS: BASO % 0.7 % (0.0-2.0); EOS # 0.1 (0.0-0.7); EOS % 1.5 % (0-4.0); GRAN # 3.5 (1.4-6.5); GRAN % 57.9 % (42.2-75.2); HEMATOCRIT 45.6 % (42.0-52.0); HEMOGLOBIN 15.5 g/dl (13.5-18.0); LYMPH # 1.9 (1.2-3.4); LYMPH % 31.2 % (20.0-51.0); MEAN CELL VOLUME 88 fl (80.0-100.0); MEAN CORPUSCULAR HEMOGLOBIN 30 pg (27.0-31.0); MEAN CORPUSCULAR HGB CONC 34 g/dl (33.0-37.0); MEAN PLATELET VOLUME 10.6 fl (7.4-10.4); MONO # 0.5 (0.1-0.6); MONO % 8.5 % (1.7-9.3); PLATELET COUNT 214 K/mm3 (130-400); RED BLOOD COUNT 5.19 M/mm3 (4.20-5.60); REDCELL DISTRIBUTION WIDTH-CV 13.2 % (11.5-14.5)
[2018-04-01] MEDS ORDERED: NORVASC 10MG10 MG PO (14:48)
[2018-04-01 14:53] LABS: ALANINE AMINOTRANSFERASE 35 U/L (21-72); ALBUMIN 4.4 gm/dL (3.5-5.0); ALKALINE PHOSPHATASE 67 U/L (50-136); ANION GAP 14 mmol/L (7-16); AST,SGOT 31 U/L (15-37); BILIRUBIN,TOTAL 0.6 mg/dL (0.0-1.0); BLOOD UREA NITROGEN 13 mg/dL (9-20); CALCIUM 9.8 mg/dL (8.4-10.2); CARBON DIOXIDE 25 mmol/L (22-30); CHLORIDE 105 mmol/L (98-107); CREATININE, serum 0.92 mg/dL (0.66-1.25); GLUCOSE 115 mg/dL (74-106); POTASSIUM 3.2 mmol/L (3.4-5.0); SODIUM 144 mmol/L (137-145); TOTAL PROTEIN 8.3 gm/dL (6.4-8.2)
[2018-04-01 15:05] LABS: TROPONIN-I < 0.012 ng/mL (0.000-0.034)
[2018-04-01 16:30] VITALS: BP 163/116; PULSE 107
== END 2018-04-01 16:34 | disposition home or self-care (01) ==
LOC: COL.ER 14:30
PROVIDERS: Emergency Medicine
DX: R55 Syncope and collapse (principal); G89.29 Other chronic pain; M54.5 Low back pain; I10 Essential (primary) hypertension; I12.9 Hypertensive chronic kidney disease with stage 1 through stage 4 chronic kidney disease, or unspecified chronic kidney disease; N18.9 Chronic kidney disease, unspecified; Z90.49 Acquired absence of other specified parts of digestive tract; Z98.890 Other specified postprocedural states; Z79.82 Long term (current) use of aspirin
CPT/HCPCS: J2060

== ENCOUNTER 2018-05-07 10:37 | Emergency (ER) | payer BC ==
[~2018-05-07] VITALS: Ht 182.9 cm; Wt 95.5 kg
[2018-05-07 10:40] VITALS: TEMP 98.2
[2018-05-07 10:56] LABS: BASO % 0.5 % (0.0-2.0); EOS # 0.2 (0.0-0.7); EOS % 3.4 % (0-4.0); GRAN # 3.6 (1.4-6.5); GRAN % 63.2 % (42.2-75.2); HEMATOCRIT 43.7 % (42.0-52.0); HEMOGLOBIN 14.7 g/dl (13.5-18.0); LYMPH # 1.2 (1.2-3.4); LYMPH % 21.5 % (20.0-51.0); MEAN CELL VOLUME 89 fl (80.0-100.0); MEAN CORPUSCULAR HEMOGLOBIN 30 pg (27.0-31.0); MEAN CORPUSCULAR HGB CONC 34 g/dl (33.0-37.0); MEAN PLATELET VOLUME 10.3 fl (7.4-10.4); MONO # 0.6 (0.1-0.6); MONO % 11.2 % (1.7-9.3); PLATELET COUNT 184 K/mm3 (130-400); RED BLOOD COUNT 4.89 M/mm3 (4.20-5.60); REDCELL DISTRIBUTION WIDTH-CV 13.4 % (11.5-14.5)
[2018-05-07 11:19] LABS: COLLECTION METHOD CLEAN CATCH
[2018-05-07 11:32] LABS: ALANINE AMINOTRANSFERASE 77 U/L (21-72); ALBUMIN 3.9 gm/dL (3.5-5.0); ALKALINE PHOSPHATASE 63 U/L (50-136); ANION GAP 10 mmol/L (7-16); AST,SGOT 55 U/L (15-37); BILIRUBIN,TOTAL 0.6 mg/dL (0.0-1.0); BLOOD UREA NITROGEN 18 mg/dL (9-20); CALCIUM 9.1 mg/dL (8.4-10.2); CARBON DIOXIDE 27 mmol/L (22-30); CHLORIDE 102 mmol/L (98-107); CREATININE, serum 0.94 mg/dL (0.66-1.25); GLUCOSE 128 mg/dL (74-106); MAGNESIUM 1.9 mg/dL (1.6-2.3); PHOSPHOROUS 4.2 mg/dL (2.5-4.5); POTASSIUM 3.7 mmol/L (3.4-5.0); SODIUM 139 mmol/L (137-145); TOTAL PROTEIN 6.9 gm/dL (6.4-8.2)
[2018-05-07 11:36] LABS: MUCOUS Present /lpf; PH 5 (5-8); SQUAMOUS EPITHELIAL 0-2 /hpf; URINE APPEARANCE Hazy; URINE BACTERIA None Seen /hpf; URINE BILIRUBIN Negative (NEGATIVE); URINE BLOOD 1+ (NEGATIVE); URINE COLOR Yellow; URINE GLUCOSE Negative (NEGATIVE); URINE KETONE Negative (NEGATIVE); URINE LEUKOCYTE ESTERASE 1+ (NEGATIVE); URINE NITRATE Negative (NEGATIVE); URINE PROTEIN(semi-quant) 2+ (NEGATIVE); URINE RBC 0-2 /hpf; URINE UROBILINOGEN Negative (NEGATIVE)
[2018-05-07 11:48] LABS: TROPONIN-I < 0.012 ng/mL (0.000-0.034)
[2018-05-07 11:54] LABS: ACETAMINOPHEN < 10 ug/mL (10-30); ALCOHOL(ethanol),MEDICAL < 10 mg/dL; SALICYLATE < 1.0 mg/dL
[2018-05-07 11:55] LABS: ARTERIAL BLD GAS O2 SATURATION 94.3 % (92-100); ARTERIAL BLD GAS TCO2 CT 25.4; ARTERIAL BLOOD GAS BASE EXCESS -1.5 (-2-2); ARTERIAL BLOOD GAS PCO2 43.6 mmHg (35-45); ARTERIAL BLOOD GAS PO2 76.9 mmHg (80-100); ARTERIAL BLOOD GAS pH 7.36 (7.35-7.45)
[2018-05-07 12:24] LABS: TRICYCLIC ANTIDEPRESS URINE NEGATIVE
[2018-05-07 15:00] VITALS: BP 97/51; PULSE 64
== END 2018-05-07 15:04 | disposition home or self-care (01) ==
LOC: COL.ER 10:37
PROVIDERS: Emergency Medicine
DX: R55 Syncope and collapse (principal); I95.9 Hypotension, unspecified; I10 Essential (primary) hypertension; Z90.49 Acquired absence of other specified parts of digestive tract; Z98.890 Other specified postprocedural states
CPT/HCPCS: J2310; J7030

== ENCOUNTER 2018-06-19 11:57 | Emergency (ER) | payer BC ==
[2009-04-11 02:41] VITALS: BP 136/95
[~2018-06-19] VITALS: Ht 182.9 cm; Wt 109.1 kg
[2018-06-19 12:04] VITALS: TEMP 97.5
[2018-06-19] MEDS ORDERED: FLEXERIL 1010 MG/TAB PO (12:13)
[2018-06-19 12:47] LABS: BASO % 0.6 % (0.0-2.0); EOS # 0.3 (0.0-0.7); EOS % 4.8 % (0-4.0); GRAN # 3.9 (1.4-6.5); GRAN % 59.9 % (42.2-75.2); HEMATOCRIT 43.4 % (42.0-52.0); HEMOGLOBIN 14.6 g/dl (13.5-18.0); LYMPH # 1.5 (1.2-3.4); LYMPH % 23.2 % (20.0-51.0); MEAN CELL VOLUME 88 fl (80.0-100.0); MEAN CORPUSCULAR HEMOGLOBIN 30 pg (27.0-31.0); MEAN CORPUSCULAR HGB CONC 34 g/dl (33.0-37.0); MEAN PLATELET VOLUME 10.4 fl (7.4-10.4); MONO # 0.7 (0.1-0.6); MONO % 11.2 % (1.7-9.3); PLATELET COUNT 195 K/mm3 (130-400); RED BLOOD COUNT 4.94 M/mm3 (4.20-5.60); REDCELL DISTRIBUTION WIDTH-CV 13.5 % (11.5-14.5)
[2018-06-19 12:52] LABS: PROTHROMBIN TIME 10.9 SECONDS (9.7-12.8)
[2018-06-19 12:55] LABS: PARTIAL THROMBOPLASTIN TIME 29.4 SECONDS (26.0-37.0)
[2018-06-19 13:00] LABS: ALANINE AMINOTRANSFERASE 51 U/L (21-72); ALBUMIN 3.8 gm/dL (3.5-5.0); ALKALINE PHOSPHATASE 57 U/L (50-136); ANION GAP 11 mmol/L (7-16); AST,SGOT 29 U/L (15-37); BILIRUBIN,TOTAL 0.6 mg/dL (0.0-1.0); BLOOD UREA NITROGEN 16 mg/dL (9-20); C-REACTIVE PROTEIN 0.6 mg/dL (0.0-0.9); CALCIUM 8.9 mg/dL (8.4-10.2); CARBON DIOXIDE 25 mmol/L (22-30); CHLORIDE 104 mmol/L (98-107); CREATININE, serum 0.74 mg/dL (0.66-1.25); GLUCOSE 108 mg/dL (74-106); POTASSIUM 3.9 mmol/L (3.4-5.0); SODIUM 140 mmol/L (137-145); TOTAL PROTEIN 7.1 gm/dL (6.4-8.2)
[2018-06-19 13:18] LABS: TROPONIN-I < 0.012 ng/mL (0.000-0.034)
[2018-06-19 16:05] VITALS: BP 101/72; PULSE 64
== END 2018-06-19 16:10 | disposition home or self-care (01) ==
LOC: COL.ER 11:57
PROVIDERS: Family Medicine
DX: R55 Syncope and collapse (principal); Z79.82 Long term (current) use of aspirin

== ENCOUNTER 2018-07-03 09:12 | Inpatient (IN) | payer BC ==
[~2018-07-03] VITALS: Ht 182.9 cm; Wt 116.0 kg
[2018-07-03 09:51] LABS: BASO # 0.1 (0.0-0.2); BASO % 0.7 % (0.0-2.0); EOS # 0.4 (0.0-0.7); EOS % 4.3 % (0-4.0); GRAN # 5.1 (1.4-6.5); GRAN % 61.8 % (42.2-75.2); HEMATOCRIT 46.6 % (42.0-52.0); HEMOGLOBIN 15.9 g/dl (13.5-18.0); LYMPH # 1.8 (1.2-3.4); MEAN CELL VOLUME 87 fl (80.0-100.0); MEAN CORPUSCULAR HEMOGLOBIN 30 pg (27.0-31.0); MEAN CORPUSCULAR HGB CONC 34 g/dl (33.0-37.0); MEAN PLATELET VOLUME 10.5 fl (7.4-10.4); MONO # 0.9 (0.1-0.6); PLATELET COUNT 207 K/mm3 (130-400); RED BLOOD COUNT 5.36 M/mm3 (4.20-5.60); REDCELL DISTRIBUTION WIDTH-CV 13.7 % (11.5-14.5)
[2018-07-03 10:34] LABS: ALBUMIN 4.2 gm/dL (3.5-5.0); BILIRUBIN,TOTAL 0.4 mg/dL (0.0-1.0); C-REACTIVE PROTEIN 0.7 mg/dL (0.0-0.9); CALCIUM 9.5 mg/dL (8.4-10.2); CREATININE, serum 0.79 mg/dL (0.66-1.25); POTASSIUM 3.9 mmol/L (3.4-5.0); TOTAL PROTEIN 7.6 gm/dL (6.4-8.2)
[2018-07-03 10:36] LABS: COLLECTION METHOD CLEAN CATCH
[2018-07-03 10:44] LABS: MUCOUS Present /lpf; PH 5 (5-8); SQUAMOUS EPITHELIAL None Seen /hpf; URINE APPEARANCE Clear; URINE BACTERIA None Seen /hpf; URINE BILIRUBIN Negative (NEGATIVE); URINE BLOOD 2+ (NEGATIVE); URINE COLOR Yellow; URINE GLUCOSE Negative (NEGATIVE); URINE KETONE Negative (NEGATIVE); URINE LEUKOCYTE ESTERASE Negative (NEGATIVE); URINE NITRATE Negative (NEGATIVE); URINE PROTEIN(semi-quant) 2+ (NEGATIVE); URINE RBC None Seen /hpf; URINE UROBILINOGEN Negative (NEGATIVE)
[2018-07-03 15:59] VITALS: BP 116/84; PULSE 70; TEMP 98
[2018-07-03 20:31] VITALS: BP 122/86; PULSE 89; TEMP 98
[2018-07-03 23:45] VITALS: BP 101/62; PULSE 57; TEMP 97.2
[2018-07-04 03:45] VITALS: BP 110/67; PULSE 46; TEMP 97.8
[2018-07-04 07:53] VITALS: BP 120/70; PULSE 52; TEMP 97.9
[2018-07-04 09:30] LABS: BASO % 0.4 % (0.0-2.0); EOS # 0.1 (0.0-0.7); EOS % 1.5 % (0-4.0); GRAN # 5.7 (1.4-6.5); GRAN % 69.3 % (42.2-75.2); HEMATOCRIT 43.1 % (42.0-52.0); HEMOGLOBIN 14.7 g/dl (13.5-18.0); LYMPH # 1.5 (1.2-3.4); LYMPH % 18.1 % (20.0-51.0); MEAN CELL VOLUME 87 fl (80.0-100.0); MEAN CORPUSCULAR HEMOGLOBIN 30 pg (27.0-31.0); MEAN CORPUSCULAR HGB CONC 34 g/dl (33.0-37.0); MEAN PLATELET VOLUME 10.5 fl (7.4-10.4); MONO # 0.9 (0.1-0.6); MONO % 10.5 % (1.7-9.3); PLATELET COUNT 179 K/mm3 (130-400); RED BLOOD COUNT 4.96 M/mm3 (4.20-5.60); REDCELL DISTRIBUTION WIDTH-CV 13.1 % (11.5-14.5)
[2018-07-04 09:37] LABS: CALCIUM 9.1 mg/dL (8.4-10.2); CREATININE, serum 0.75 mg/dL (0.66-1.25)
[2018-07-04 10:46] VITALS: BP 147/85; PULSE 45
[2018-07-04 16:18] VITALS: BP 148/95; PULSE 43; TEMP 97.7
[2018-07-04 19:25] VITALS: BP 130/94; PULSE 90; TEMP 97.8
[2018-07-04 23:04] VITALS: BP 139/91; PULSE 48; TEMP 97.6
[2018-07-05 04:08] VITALS: BP 142/84; PULSE 58; TEMP 97.8
[2018-07-05 05:53] LABS: BASO % 0.1 % (0.0-2.0); GRAN # 6.4 (1.4-6.5); GRAN % 87.3 % (42.2-75.2); HEMATOCRIT 43.5 % (42.0-52.0); HEMOGLOBIN 15.2 g/dl (13.5-18.0); LYMPH # 0.8 (1.2-3.4); LYMPH % 10.8 % (20.0-51.0); MEAN CELL VOLUME 85 fl (80.0-100.0); MEAN CORPUSCULAR HEMOGLOBIN 30 pg (27.0-31.0); MEAN CORPUSCULAR HGB CONC 35 g/dl (33.0-37.0); MEAN PLATELET VOLUME 10.9 fl (7.4-10.4); MONO # 0.1 (0.1-0.6); MONO % 1.4 % (1.7-9.3); PLATELET COUNT 188 K/mm3 (130-400); RED BLOOD COUNT 5.11 M/mm3 (4.20-5.60); REDCELL DISTRIBUTION WIDTH-CV 12.6 % (11.5-14.5)
[2018-07-05 05:58] LABS: CALCIUM 9.2 mg/dL (8.4-10.2); CREATININE, serum 0.68 mg/dL (0.66-1.25); POTASSIUM 3.7 mmol/L (3.4-5.0)
[2018-07-05 07:54] VITALS: BP 158/104; PULSE 74; TEMP 96.8
[2018-07-05 12:00] VITALS: BP 150/88; PULSE 98; TEMP 98.1
[2018-07-05 15:36] VITALS: BP 150/84; PULSE 52; TEMP 97.9
[2018-07-05 19:29] VITALS: BP 136/72; PULSE 57; TEMP 97.3
[2018-07-05 23:09] VITALS: BP 131/80; PULSE 57; TEMP 97.2
[2018-07-06] VITALS (7 sets, daily range): BP systolic 115–173; BP diastolic 71–104; PULSE 53–71; TEMP 96.8–98.3
[2018-07-07] VITALS (9 sets, daily range): BP systolic 144–178; BP diastolic 83–114; PULSE 50–82; TEMP 97.1–98.6
[2018-07-07 08:32] LABS: CALCIUM 8.3 mg/dL (8.4-10.2); CREATININE, serum 0.76 mg/dL (0.66-1.25); POTASSIUM 3.4 mmol/L (3.4-5.0)
[2018-07-07] MEDS ORDERED: BENTYL 10MG10 MG/CAP PO (15:35)
[2018-07-07] MEDS ORDERED: PREDNISONE10 MG PO (15:38)
[2018-07-08 00:13] VITALS: BP 149/96; PULSE 57; TEMP 98
[2018-07-08 03:56] VITALS: BP 138/99; PULSE 56; TEMP 97
[2018-07-08 06:46] LABS: BASO % 0.1 % (0.0-2.0); EOS % 0.1 % (0-4.0); GRAN # 6.3 (1.4-6.5); GRAN % 66.8 % (42.2-75.2); HEMATOCRIT 45.2 % (42.0-52.0); HEMOGLOBIN 15.5 g/dl (13.5-18.0); LYMPH % 21.4 % (20.0-51.0); MEAN CELL VOLUME 86 fl (80.0-100.0); MEAN CORPUSCULAR HEMOGLOBIN 30 pg (27.0-31.0); MEAN CORPUSCULAR HGB CONC 34 g/dl (33.0-37.0); MEAN PLATELET VOLUME 11.5 fl (7.4-10.4); MONO % 10.4 % (1.7-9.3); PLATELET COUNT 201 K/mm3 (130-400); RED BLOOD COUNT 5.23 M/mm3 (4.20-5.60); REDCELL DISTRIBUTION WIDTH-CV 13.2 % (11.5-14.5)
[2018-07-08 06:56] LABS: CALCIUM 8.4 mg/dL (8.4-10.2); CREATININE, serum 0.86 mg/dL (0.66-1.25); MAGNESIUM 2.4 mg/dL (1.6-2.3); POTASSIUM 3.2 mmol/L (3.4-5.0)
[2018-07-08 08:00] VITALS: BP 132/91; PULSE 62; TEMP 97.5
[2018-07-08 11:58] VITALS: BP 115/70; PULSE 80; TEMP 98
== END 2018-07-08 11:35 | disposition home or self-care (01) | DRG 386 ==
LOC: COL.ER 09:12 → MEDICAL 12:07
PROVIDERS: Family Medicine; Hospitalist; Internal Medicine Gastroenterology; Nurse Practitioner Family
PROC: 0DBN8ZX Excision of Sigmoid Colon, Via Natural or Artificial Opening Endoscopic, Diagnostic (ICD-10-PCS; 2018-07-07)
PROC: 0DBP8ZX Excision of Rectum, Via Natural or Artificial Opening Endoscopic, Diagnostic (ICD-10-PCS; 2018-07-07)
PROC: 0DBF8ZX Excision of Right Large Intestine, Via Natural or Artificial Opening Endoscopic, Diagnostic (ICD-10-PCS; 2018-07-07)
PROC: 0DBG8ZX Excision of Left Large Intestine, Via Natural or Artificial Opening Endoscopic, Diagnostic (ICD-10-PCS; principal; 2018-07-07 11:30)
DX: K51.011 Ulcerative (chronic) pancolitis with rectal bleeding (principal); I42.0 Dilated cardiomyopathy; I12.9 Hypertensive chronic kidney disease with stage 1 through stage 4 chronic kidney disease, or unspecified chronic kidney disease; N18.9 Chronic kidney disease, unspecified; I25.10 Atherosclerotic heart disease of native coronary artery without angina pectoris; E78.5 Hyperlipidemia, unspecified; E87.6 Hypokalemia; R00.1 Bradycardia, unspecified; G89.29 Other chronic pain; M54.9 Dorsalgia, unspecified
CPT/HCPCS: OP; 99232-AI; 99239; G0378; J0744; J1650; J2270; J2405; J2704; J2920; J3010; J7030; J7120; J7512; Q9967

== ENCOUNTER 2018-07-11 07:07 | Emergency (ER) | payer BC ==
[2009-04-11 02:41] VITALS: BP 136/95
[~2018-07-11] VITALS: Ht 182.9 cm; Wt 111.4 kg
[~2018-07-11 07:07] MED LIST changes: +BENTYL 10MG10 MG/CAP PO; +PREDNISONE10 MG PO
[2018-07-11 07:10] VITALS: TEMP 97.8
[2018-07-11 07:28] LABS: BASO % 0.2 % (0.0-2.0); EOS # 0.5 (0.0-0.7); EOS % 4.3 % (0-4.0); GRAN # 5.8 (1.4-6.5); LYMPH # 2.8 (1.2-3.4); LYMPH % 26.7 % (20.0-51.0); MEAN CELL VOLUME 85 fl (80.0-100.0); MEAN CORPUSCULAR HGB CONC 35 g/dl (33.0-37.0); MEAN PLATELET VOLUME 10.7 fl (7.4-10.4); MONO # 1.3 (0.1-0.6); MONO % 12.3 % (1.7-9.3); PLATELET COUNT 247 K/mm3 (130-400); REDCELL DISTRIBUTION WIDTH-CV 14.1 % (11.5-14.5)
[2018-07-11 07:29] LABS: HEMATOCRIT 53.6 % (42.0-52.0); HEMOGLOBIN 18.6 g/dl (13.5-18.0); MEAN CORPUSCULAR HEMOGLOBIN 30 pg (27.0-31.0)
[2018-07-11 07:42] LABS: ALANINE AMINOTRANSFERASE 52 U/L (21-72); ALBUMIN 4.4 gm/dL (3.5-5.0); ALKALINE PHOSPHATASE 67 U/L (50-136); ANION GAP 11 mmol/L (7-16); AST,SGOT 35 U/L (15-37); BILIRUBIN,TOTAL 1.2 mg/dL (0.0-1.0); BLOOD UREA NITROGEN 17 mg/dL (9-20); C-REACTIVE PROTEIN 2.6 mg/dL (0.0-0.9); CALCIUM 9.1 mg/dL (8.4-10.2); CARBON DIOXIDE 29 mmol/L (22-30); CHLORIDE 97 mmol/L (98-107); CREATININE, serum 0.84 mg/dL (0.66-1.25); GLUCOSE 122 mg/dL (74-106); LIPASE 131 U/L (23-300); POTASSIUM 3.5 mmol/L (3.4-5.0); SODIUM 137 mmol/L (137-145); TOTAL PROTEIN 8.1 gm/dL (6.4-8.2)
[2018-07-11 07:51] LABS: TROPONIN-I < 0.012 ng/mL (0.000-0.034)
[2018-07-11 08:40] LABS: ERYTHROCYTE SEDIMENTATION RATE 2 mm/hr (0-15)
[2018-07-11 08:48] LABS: COLLECTION METHOD CLEAN CATCH
[2018-07-11] MEDS ORDERED: PHENERGAN 25 TA25 MG PO (08:55)
[2018-07-11] MEDS ORDERED: NEXIUM 20MG20 MG PO (08:55)
[2018-07-11 09:01] LABS: MUCOUS Present /lpf; PH 5 (5-8); SQUAMOUS EPITHELIAL 0-2 /hpf; URINE APPEARANCE Clear; URINE BACTERIA None Seen /hpf; URINE BILIRUBIN Negative (NEGATIVE); URINE BLOOD 1+ (NEGATIVE); URINE COLOR Yellow; URINE GLUCOSE Negative (NEGATIVE); URINE KETONE 1+ (NEGATIVE); URINE LEUKOCYTE ESTERASE Negative (NEGATIVE); URINE NITRATE Negative (NEGATIVE); URINE PROTEIN(semi-quant) 2+ (NEGATIVE); URINE UROBILINOGEN Negative (NEGATIVE)
[2018-07-11 09:30] VITALS: BP 133/105; PULSE 71
== END 2018-07-11 09:50 | disposition home or self-care (01) ==
LOC: COL.ER 07:07
PROVIDERS: Emergency Medicine
DX: K29.00 Acute gastritis without bleeding (principal); I10 Essential (primary) hypertension; Z90.49 Acquired absence of other specified parts of digestive tract; Z87.19 Personal history of other diseases of the digestive system; Z79.52 Long term (current) use of systemic steroids; Z79.82 Long term (current) use of aspirin
CPT/HCPCS: C9113; J0780; J1200; J2270; J3010; J7030; Q9967

== ENCOUNTER → 2018-07-21 | Outpatient (CLI) | payer BC ==
[~2018-07-21] MED LIST changes: +NEXIUM 20MG20 MG PO; +PHENERGAN 25 TA25 MG PO
== END ==
LOC: COL.RAD 07:30
DX: M99.71 Connective tissue and disc stenosis of intervertebral foramina of cervical region (principal); M54.40 Lumbago with sciatica, unspecified side; M50.30 Other cervical disc degeneration, unspecified cervical region; M96.1 Postlaminectomy syndrome, not elsewhere classified; M47.812 Spondylosis without myelopathy or radiculopathy, cervical region; Z98.890 Other specified postprocedural states
CPT/HCPCS: A9585

== ENCOUNTER 2018-07-31 09:49 | Emergency (ER) | payer BC ==
[2009-04-11 02:41] VITALS: BP 136/95
[~2018-07-31] VITALS: Ht 182.9 cm; Wt 108.6 kg
[2018-07-31 09:50] VITALS: TEMP 97.7
[2018-07-31 10:32] LABS: BASO % 0.6 % (0.0-2.0); EOS # 0.3 (0.0-0.7); EOS % 4.9 % (0-4.0); GRAN # 3.6 (1.4-6.5); GRAN % 55.7 % (42.2-75.2); HEMATOCRIT 43.1 % (42.0-52.0); HEMOGLOBIN 14.2 g/dl (13.5-18.0); LYMPH # 1.6 (1.2-3.4); LYMPH % 24.8 % (20.0-51.0); MEAN CELL VOLUME 89 fl (80.0-100.0); MEAN CORPUSCULAR HEMOGLOBIN 30 pg (27.0-31.0); MEAN CORPUSCULAR HGB CONC 33 g/dl (33.0-37.0); MEAN PLATELET VOLUME 10.2 fl (7.4-10.4); MONO # 0.9 (0.1-0.6); MONO % 13.7 % (1.7-9.3); PLATELET COUNT 243 K/mm3 (130-400); RED BLOOD COUNT 4.82 M/mm3 (4.20-5.60); REDCELL DISTRIBUTION WIDTH-CV 13.9 % (11.5-14.5)
[2018-07-31 10:33] LABS: PROTHROMBIN TIME 11.9 SECONDS (9.7-12.8)
[2018-07-31 10:41] LABS: ALBUMIN 3.7 gm/dL (3.5-5.0); BILIRUBIN,TOTAL 0.5 mg/dL (0.0-1.0); CREATININE, serum 1.02 mg/dL (0.66-1.25); POTASSIUM 3.8 mmol/L (3.4-5.0); TOTAL PROTEIN 6.5 gm/dL (6.4-8.2)
[2018-07-31 14:28] VITALS: BP 109/75; PULSE 71
== END 2018-07-31 14:30 | disposition home or self-care (01) ==
LOC: COL.ER 09:49
PROVIDERS: Emergency Medicine
DX: R55 Syncope and collapse (principal); I42.9 Cardiomyopathy, unspecified; Z79.82 Long term (current) use of aspirin; Z90.49 Acquired absence of other specified parts of digestive tract
CPT/HCPCS: J7030

== ENCOUNTER 2018-08-11 09:32 | Emergency (ER) | payer BC ==
[2009-04-11 02:41] VITALS: BP 136/95
[~2018-08-11] VITALS: Ht 185.4 cm; Wt 113.6 kg
[2018-08-11 09:36] VITALS: TEMP 97.4
[2018-08-11 09:56] LABS: BASO % 0.6 % (0.0-2.0); EOS # 0.4 (0.0-0.7); EOS % 6.7 % (0-4.0); GRAN # 3.7 (1.4-6.5); GRAN % 58.3 % (42.2-75.2); HEMATOCRIT 43.6 % (42.0-52.0); HEMOGLOBIN 14.7 g/dl (13.5-18.0); LYMPH # 1.4 (1.2-3.4); LYMPH % 22.6 % (20.0-51.0); MEAN CELL VOLUME 88 fl (80.0-100.0); MEAN CORPUSCULAR HEMOGLOBIN 30 pg (27.0-31.0); MEAN CORPUSCULAR HGB CONC 34 g/dl (33.0-37.0); MEAN PLATELET VOLUME 10.5 fl (7.4-10.4); MONO # 0.7 (0.1-0.6); MONO % 11.6 % (1.7-9.3); PLATELET COUNT 188 K/mm3 (130-400); RED BLOOD COUNT 4.94 M/mm3 (4.20-5.60); REDCELL DISTRIBUTION WIDTH-CV 13.9 % (11.5-14.5)
[2018-08-11 10:07] LABS: ALANINE AMINOTRANSFERASE 54 U/L (21-72); ALBUMIN 3.7 gm/dL (3.5-5.0); ALKALINE PHOSPHATASE 61 U/L (50-136); ANION GAP 7 mmol/L (7-16); AST,SGOT 33 U/L (15-37); BILIRUBIN,TOTAL 0.6 mg/dL (0.0-1.0); BLOOD UREA NITROGEN 15 mg/dL (9-20); CARBON DIOXIDE 26 mmol/L (22-30); CHLORIDE 107 mmol/L (98-107); CREATININE, serum 1.18 mg/dL (0.66-1.25); GLUCOSE 142 mg/dL (74-106); MAGNESIUM 1.9 mg/dL (1.6-2.3); PHOSPHOROUS 3.8 mg/dL (2.5-4.5); SODIUM 140 mmol/L (137-145); TOTAL PROTEIN 6.6 gm/dL (6.4-8.2)
[2018-08-11 10:19] LABS: TROPONIN-I < 0.012 ng/mL (0.000-0.034)
[2018-08-11 10:23] LABS: PROLACTIN 15.1 ng/mL (3.7-17.9)
[2018-08-11 12:40] VITALS: BP 112/73; PULSE 61
== END 2018-08-11 13:09 | disposition home or self-care (01) ==
LOC: COL.ER 09:32
PROVIDERS: Emergency Medicine
DX: R55 Syncope and collapse (principal)
CPT/HCPCS: J7030

== ENCOUNTER → 2018-11-03 | Outpatient (RCR) | payer BC | END | disposition home or self-care (01) | LOC: WSPT → WSC 08-05 08:15 → WSPT 08-18 09:00 → WSC 08-27 09:30 → WSPT 09-15 11:00 → WSC 10-08 10:15 → WSPT 10-22 09:00 → WSC 09:00 | DX: M47.22 Other spondylosis with radiculopathy, cervical region (principal); M48.02 Spinal stenosis, cervical region; M50.30 Other cervical disc degeneration, unspecified cervical region; M54.5 Low back pain; E66.01 Morbid (severe) obesity due to excess calories; Z68.34 Body mass index [BMI] 34.0-34.9, adult; Z79.891 Long term (current) use of opiate analgesic; Z79.899 Other long term (current) drug therapy; Z98.890 Other specified postprocedural states ==

== ENCOUNTER 2018-11-05 15:11 | Outpatient (RCR) | payer BC | END 2018-11-10 15:36 | disposition home or self-care (01) | LOC: WSPT 15:11 | DX: M47.22 Other spondylosis with radiculopathy, cervical region (principal); M50.30 Other cervical disc degeneration, unspecified cervical region; M48.02 Spinal stenosis, cervical region; M54.5 Low back pain; E66.01 Morbid (severe) obesity due to excess calories; Z68.34 Body mass index [BMI] 34.0-34.9, adult; Z79.82 Long term (current) use of aspirin; Z79.891 Long term (current) use of opiate analgesic; Z79.899 Other long term (current) drug therapy ==

== ENCOUNTER 2018-11-14 08:01 | Emergency (ER) | payer BC ==
[2009-04-11 02:41] VITALS: BP 136/95
[~2018-11-14] VITALS: Ht 182.9 cm; Wt 98.2 kg
[2018-11-14 08:08] VITALS: TEMP 97.4
[2018-11-14] MEDS ORDERED: TOPROL XL 25MG25 MG PO (08:22)
[2018-11-14] MEDS ORDERED: PERCOCET 325 MG1 TA3 PO ×2 (08:22→09:49)
[2018-11-14 08:39] LABS: BASO % 0.6 % (0.0-2.0); EOS # 0.3 (0.0-0.7); EOS % 5.2 % (0-4.0); GRAN # 4.1 (1.4-6.5); GRAN % 64.7 % (42.2-75.2); HEMOGLOBIN 15.4 g/dl (13.5-18.0); LYMPH # 0.9 (1.2-3.4); LYMPH % 14.8 % (20.0-51.0); MEAN CELL VOLUME 86 fl (80.0-100.0); MEAN CORPUSCULAR HEMOGLOBIN 29 pg (27.0-31.0); MEAN CORPUSCULAR HGB CONC 34 g/dl (33.0-37.0); MONO # 0.9 (0.1-0.6); MONO % 14.5 % (1.7-9.3); PLATELET COUNT 224 K/mm3 (130-400); RED BLOOD COUNT 5.26 M/mm3 (4.20-5.60); REDCELL DISTRIBUTION WIDTH-CV 12.9 % (11.5-14.5)
[2018-11-14 08:51] LABS: ALANINE AMINOTRANSFERASE 24 U/L (21-72); ALBUMIN 3.8 gm/dL (3.5-5.0); ALKALINE PHOSPHATASE 70 U/L (50-136); ANION GAP 6 mmol/L (7-16); AST,SGOT 22 U/L (15-37); BILIRUBIN,TOTAL 0.9 mg/dL (0.0-1.0); BLOOD UREA NITROGEN 10 mg/dL (9-20); CALCIUM 9.3 mg/dL (8.4-10.2); CARBON DIOXIDE 27 mmol/L (22-30); CHLORIDE 106 mmol/L (98-107); CREATININE, serum 0.83 mg/dL (0.66-1.25); GLUCOSE 100 mg/dL (74-106); POTASSIUM 3.8 mmol/L (3.4-5.0); SODIUM 139 mmol/L (137-145); TOTAL PROTEIN 7.2 gm/dL (6.4-8.2)
[2018-11-14 09:05] LABS: TROPONIN-I < 0.012 ng/mL (0.000-0.035)
[2018-11-14] MEDS ORDERED: FLEXERIL 1010 MG/TAB PO (10:01)
[2018-11-14 10:38] VITALS: BP 145/98; PULSE 73
== END 2018-11-14 10:39 | disposition home or self-care (01) ==
LOC: COL.ER 08:01
PROVIDERS: Nurse Practitioner
DX: S09.90XA Unspecified injury of head, initial encounter (principal); S16.1XXA Strain of muscle, fascia and tendon at neck level, initial encounter; R07.89 Other chest pain; I10 Essential (primary) hypertension; I42.9 Cardiomyopathy, unspecified; W10.9XXA Fall (on) (from) unspecified stairs and steps, initial encounter; Z88.0 Allergy status to penicillin; Z88.5 Allergy status to narcotic agent; Z90.49 Acquired absence of other specified parts of digestive tract; Z95.5 Presence of coronary angioplasty implant and graft
CPT/HCPCS: J1885; J2270; J7030

== ENCOUNTER 2019-03-21 12:12 | Emergency (ER) | payer BC ==
[2009-04-11 02:41] VITALS: BP 136/95
[~2019-03-21] VITALS: Ht 182.9 cm; Wt 100.5 kg
[~2019-03-21 12:12] MED LIST changes: +TOPROL XL 25MG25 MG PO
[2019-03-21 12:14] VITALS: BP 136/85; TEMP 97
[2019-03-21] MEDS ORDERED: ZESTRIL 20MG TA20 MG PO (12:42)
[2019-03-21 13:16] VITALS: PULSE 74
== END 2019-03-21 13:18 | disposition home or self-care (01) ==
LOC: COL.ER 12:12
DX: S93.502A Unspecified sprain of left great toe, initial encounter (principal); Z88.5 Allergy status to narcotic agent; Z88.0 Allergy status to penicillin; X50.1XXA Overexertion from prolonged static or awkward postures, initial encounter; Y92.009 Unspecified place in unspecified non-institutional (private) residence as the place of occurrence of the external cause

== ENCOUNTER 2019-04-19 21:00 | Emergency (ER) | payer BC ==
[2009-04-11 02:41] VITALS: BP 136/95
[~2019-04-19] VITALS: Ht 182.9 cm; Wt 103.2 kg
[2019-04-19 21:05] VITALS: TEMP 98.4
[2019-04-19 21:50] LABS: BASO % 0.6 % (0.0-2.0); EOS # 0.2 (0.0-0.7); EOS % 2.6 % (0-4.0); GRAN # 3.9 (1.4-6.5); GRAN % 58.9 % (42.2-75.2); HEMATOCRIT 48.7 % (42.0-52.0); HEMOGLOBIN 16.4 g/dl (13.5-18.0); LYMPH # 1.7 (1.2-3.4); LYMPH % 25.8 % (20.0-51.0); MEAN CELL VOLUME 88 fl (80.0-100.0); MEAN CORPUSCULAR HEMOGLOBIN 30 pg (27.0-31.0); MEAN CORPUSCULAR HGB CONC 34 g/dl (33.0-37.0); MEAN PLATELET VOLUME 10.8 fl (7.4-10.4); MONO # 0.8 (0.1-0.6); MONO % 11.8 % (1.7-9.3); PLATELET COUNT 189 K/mm3 (130-400); RED BLOOD COUNT 5.56 M/mm3 (4.20-5.60); REDCELL DISTRIBUTION WIDTH-CV 13.1 % (11.5-14.5)
[2019-04-19 22:01] LABS: ALBUMIN 4.4 gm/dL (3.5-5.0); BILIRUBIN,TOTAL 0.5 mg/dL (0.0-1.0); CALCIUM 9.4 mg/dL (8.4-10.2); CREATININE, serum 0.8 (0.66-1.25); POTASSIUM 3.6 mmol/L (3.4-5.0); TOTAL PROTEIN 7.8 gm/dL (6.4-8.2)
[2019-04-19 22:17] LABS: TROPONIN-I 0.115 ng/mL (0.000-0.035)
[2019-04-19 23:30] VITALS: BP 160/111; PULSE 104
== END 2019-04-19 23:45 | disposition short-term general hospital (02) ==
LOC: COL.ER 21:00
PROVIDERS: Emergency Medicine
DX: T82.198A Other mechanical complication of other cardiac electronic device, initial encounter (principal); R07.89 Other chest pain; I50.9 Heart failure, unspecified; Z79.82 Long term (current) use of aspirin
CPT/HCPCS: J7030

== ENCOUNTER 2019-04-23 05:13 | Emergency (ER) | payer BC ==
[2009-04-11 02:41] VITALS: BP 136/95
[~2019-04-23] VITALS: Ht 182.9 cm; Wt 97.7 kg
[2019-04-23 05:18] VITALS: TEMP 98.4
[2019-04-23 05:37] LABS: BASO % 0.4 % (0.0-2.0); EOS # 0.2 (0.0-0.7); EOS % 2.2 % (0-4.0); GRAN # 6.7 (1.4-6.5); GRAN % 71.4 % (42.2-75.2); HEMATOCRIT 48.7 % (42.0-52.0); HEMOGLOBIN 16.6 g/dl (13.5-18.0); LYMPH # 1.5 (1.2-3.4); LYMPH % 16.2 % (20.0-51.0); MEAN CELL VOLUME 87 fl (80.0-100.0); MEAN CORPUSCULAR HEMOGLOBIN 30 pg (27.0-31.0); MEAN CORPUSCULAR HGB CONC 34 g/dl (33.0-37.0); MEAN PLATELET VOLUME 10.8 fl (7.4-10.4); MONO # 0.9 (0.1-0.6); MONO % 9.6 % (1.7-9.3); PLATELET COUNT 182 K/mm3 (130-400); RED BLOOD COUNT 5.58 M/mm3 (4.20-5.60); REDCELL DISTRIBUTION WIDTH-CV 12.6 % (11.5-14.5)
[2019-04-23] MEDS ORDERED: MICROZIDE12.5 MG PO (05:41)
[2019-04-23] MEDS ORDERED: COENZYME Q-10100 M1 PO (05:43)
[2019-04-23] MEDS ORDERED: LIPITOR 40MG TA40 MG PO (05:43)
[2019-04-23 06:28] LABS: ALBUMIN 4.3 gm/dL (3.5-5.0); CALCIUM 9.8 mg/dL (8.4-10.2); CREATININE, serum 0.84 (0.66-1.25); POTASSIUM 3.9 mmol/L (3.4-5.0)
[2019-04-23 06:42] LABS: TROPONIN-I 0.133 ng/mL (0.000-0.035)
[2019-04-23] MEDS ORDERED: TOPROL XL 50MG50 MG PO (11:22)
[2019-04-23 11:32] VITALS: BP 142/107; PULSE 73
[2019-04-23] MEDS ORDERED: ATIVAN 0.50.5 MG/TAB PO (22:54)
== END 2019-04-23 12:10 | disposition home or self-care (01) ==
LOC: COL.ER 05:13
PROVIDERS: Emergency Medicine
DX: R07.89 Other chest pain (principal); R06.02 Shortness of breath; I10 Essential (primary) hypertension; Z95.5 Presence of coronary angioplasty implant and graft
CPT/HCPCS: J2270; J2405; Q9967

== ENCOUNTER 2019-04-23 20:58 | Emergency (ER) | payer BC ==
[2009-04-11 02:41] VITALS: BP 136/95
[~2019-04-23] VITALS: Ht 182.9 cm; Wt 97.7 kg
[~2019-04-23 20:58] MED LIST changes: +COENZYME Q-10100 M1 PO; +MICROZIDE12.5 MG PO; +TOPROL XL 50MG50 MG PO
[2019-04-23 21:11] VITALS: TEMP 98.1
[2019-04-23 21:29] LABS: BASO % 0.4 % (0.0-2.0); EOS # 0.2 (0.0-0.7); EOS % 1.5 % (0-4.0); GRAN # 7.1 (1.4-6.5); GRAN % 72.1 % (42.2-75.2); HEMATOCRIT 49.4 % (42.0-52.0); HEMOGLOBIN 16.7 g/dl (13.5-18.0); LYMPH # 1.7 (1.2-3.4); LYMPH % 17.5 % (20.0-51.0); MEAN CELL VOLUME 87 fl (80.0-100.0); MEAN CORPUSCULAR HEMOGLOBIN 30 pg (27.0-31.0); MEAN CORPUSCULAR HGB CONC 34 g/dl (33.0-37.0); MEAN PLATELET VOLUME 10.6 fl (7.4-10.4); MONO # 0.8 (0.1-0.6); MONO % 8.3 % (1.7-9.3); PLATELET COUNT 191 K/mm3 (130-400); RED BLOOD COUNT 5.67 M/mm3 (4.20-5.60); REDCELL DISTRIBUTION WIDTH-CV 12.7 % (11.5-14.5)
[2019-04-23] MEDS ORDERED: ATIVAN 0.50.5 MG/TAB PO (22:54)
[2019-04-23 23:23] VITALS: BP 139/91; PULSE 72
== END 2019-04-23 23:23 | disposition home or self-care (01) ==
LOC: COL.ER 20:58
PROVIDERS: Emergency Medicine
DX: F41.9 Anxiety disorder, unspecified (principal); R07.89 Other chest pain; D86.89 Sarcoidosis of other sites; Z95.0 Presence of cardiac pacemaker; Z79.82 Long term (current) use of aspirin

== ENCOUNTER 2019-05-10 15:13 | Emergency (ER) | payer BC ==
[2009-04-11 02:41] VITALS: BP 136/95
[~2019-05-10] VITALS: Ht 182.9 cm; Wt 97.3 kg
[~2019-05-10 15:13] MED LIST changes: +ATIVAN 0.50.5 MG/TAB PO
[2019-05-10 15:19] VITALS: TEMP 98.1
[2019-05-10] MEDS ORDERED: PERCOCET 325 MG1 TA3 PO (15:25)
[2019-05-10 15:46] LABS: BASO % 0.5 % (0.0-2.0); EOS # 0.2 (0.0-0.7); EOS % 2.7 % (0-4.0); GRAN # 4.7 (1.4-6.5); GRAN % 62.7 % (42.2-75.2); HEMATOCRIT 46.2 % (42.0-52.0); HEMOGLOBIN 15.9 g/dl (13.5-18.0); LYMPH # 1.9 (1.2-3.4); LYMPH % 25.3 % (20.0-51.0); MEAN CELL VOLUME 86 fl (80.0-100.0); MEAN CORPUSCULAR HEMOGLOBIN 30 pg (27.0-31.0); MEAN CORPUSCULAR HGB CONC 34 g/dl (33.0-37.0); MEAN PLATELET VOLUME 10.4 fl (7.4-10.4); MONO # 0.6 (0.1-0.6); MONO % 8.5 % (1.7-9.3); PLATELET COUNT 243 K/mm3 (130-400); RED BLOOD COUNT 5.39 M/mm3 (4.20-5.60); REDCELL DISTRIBUTION WIDTH-CV 12.5 % (11.5-14.5)
[2019-05-10 15:59] LABS: ALANINE AMINOTRANSFERASE 21 U/L (21-72); ALBUMIN 4.5 gm/dL (3.5-5.0); ALKALINE PHOSPHATASE 57 U/L (50-136); ANION GAP 12 mmol/L (7-16); AST,SGOT 25 U/L (15-37); BILIRUBIN,TOTAL 0.4 mg/dL (0.0-1.0); BLOOD UREA NITROGEN 15 mg/dL (9-20); CALCIUM 10.1 mg/dL (8.4-10.2); CARBON DIOXIDE 22 mmol/L (22-30); CHLORIDE 108 mmol/L (98-107); CREATININE, serum 0.83 (0.66-1.25); GLUCOSE 108 mg/dL (74-106); POTASSIUM 3.9 mmol/L (3.4-5.0); SODIUM 142 mmol/L (137-145); TOTAL PROTEIN 7.7 gm/dL (6.4-8.2)
[2019-05-10 16:09] LABS: C-REACTIVE PROTEIN < 0.5 mg/dL (0.0-0.9); TROPONIN-I < 0.012 ng/mL (0.000-0.035)
[2019-05-10] MEDS ORDERED: CEPHALEXIN500 M1 PO ×2 (18:59)
[2019-05-10 19:03] VITALS: BP 112/67; PULSE 65
== END 2019-05-10 19:15 | disposition home or self-care (01) ==
LOC: COL.ER 15:13
PROVIDERS: Emergency Medicine
DX: S81.841A Puncture wound with foreign body, right lower leg, initial encounter (principal); R07.89 Other chest pain; F41.9 Anxiety disorder, unspecified; Z95.0 Presence of cardiac pacemaker; W26.8XXA Contact with other sharp object(s), not elsewhere classified, initial encounter
CPT/HCPCS: J0690; J2060; J2270; J2405; J3010; J7030

== ENCOUNTER 2019-05-11 07:01 | Observation (INO) | payer BC ==
[~2019-05-11] VITALS: Ht 182.9 cm; Wt 96.2 kg
[2019-05-11 07:27] LABS: BASO % 0.4 % (0.0-2.0); EOS # 0.2 (0.0-0.7); EOS % 1.7 % (0-4.0); GRAN # 7.1 (1.4-6.5); GRAN % 71.9 % (42.2-75.2); HEMOGLOBIN 15.6 g/dl (13.5-18.0); LYMPH # 1.6 (1.2-3.4); LYMPH % 16.2 % (20.0-51.0); MEAN CELL VOLUME 88 fl (80.0-100.0); MEAN CORPUSCULAR HEMOGLOBIN 29 pg (27.0-31.0); MEAN CORPUSCULAR HGB CONC 33 g/dl (33.0-37.0); MEAN PLATELET VOLUME 10.8 fl (7.4-10.4); MONO # 0.9 (0.1-0.6); MONO % 9.5 % (1.7-9.3); PLATELET COUNT 212 K/mm3 (130-400); RED BLOOD COUNT 5.35 M/mm3 (4.20-5.60); REDCELL DISTRIBUTION WIDTH-CV 12.7 % (11.5-14.5)
[2019-05-11 07:36] LABS: ALANINE AMINOTRANSFERASE 27 U/L (21-72); ALBUMIN 4.5 gm/dL (3.5-5.0); ALKALINE PHOSPHATASE 75 U/L (50-136); ANION GAP 11 mmol/L (7-16); AST,SGOT 41 U/L (15-37); BILIRUBIN,TOTAL 0.8 mg/dL (0.0-1.0); BLOOD UREA NITROGEN 18 mg/dL (9-20); C-REACTIVE PROTEIN 0.8 mg/dL (0.0-0.9); CALCIUM 9.6 mg/dL (8.4-10.2); CARBON DIOXIDE 25 mmol/L (22-30); CHLORIDE 106 mmol/L (98-107); CREATININE, serum 0.78 (0.66-1.25); GLUCOSE 98 mg/dL (74-106); POTASSIUM 3.8 mmol/L (3.4-5.0); SODIUM 141 mmol/L (137-145)
[2019-05-11 07:45] LABS: TROPONIN-I < 0.012 ng/mL (0.000-0.035)
--- NOTE | 2019-05-11 12:33 | NUR ---
Pt arrives to medical unit rm 358 from ED via WC accompanied by JACEY Daniel. Pt awake and alert, oriented x 4, reports pain to right leg 8 out of 10 on pain scale, 7 out of 10 pain to left chest. Saline lock IV to right AC without s/s of complications. Pt reports not tolerating bearing weight to right leg, urinal provided. POC reviewed with pt. No further needs reported. Call light in reach.
[2019-05-11 12:38] VITALS: BP 125/73; PULSE 65; TEMP 97.9
--- NOTE | 2019-05-11 13:03 | NUR ---
PRN pain medication administered per orders and IVF's started to right AC site. Pt denies further needs at this time. Call light in reach.
[2019-05-11 16:26] VITALS: BP 160/95; PULSE 63; TEMP 98
--- NOTE | 2019-05-11 18:10 | NUR ---
Pt reports pain to right leg and left chest increased again to 8 out of 10. PRN pain medication aministered per orders. Pt denies further needs. Call light in reach.
--- NOTE | 2019-05-11 19:20 | NUR ---
Shift assessment complete. Pt resting in bed, awake, a&o, cooperative c cares. Pt continued c/o pain to RLE et chest pain, pt reports "it's a little better now", rates pain "03/22"; scheduled percocet admin. Pt denies other c/o. Lac noted to RLE/coe, sutures intact, reddness/warmth noted around area, no drainage at this time. IV patent. Tele in place. Pt denies further needs at this time. Call light in reach, will monitor.
[2019-05-11 20:04] VITALS: BP 150/92; PULSE 60; TEMP 98.4
[2019-05-12] VITALS (9 sets, daily range): BP systolic 133–194; BP diastolic 87–116; PULSE 60–98; TEMP 97.6–98.8
--- NOTE | 2019-05-12 07:00 | NUR ---
Report received from JACEY Walls. Pt in bed sleeping, at bedside. Denies needs, will continue to monitor.
--- NOTE | 2019-05-12 10:00 | NUR ---
Assessment charted. Pt in bed resting, states his R coe is becoming increasingly red and warm, bright outline around redenned area. R coe sutures in place. PUlses present in foot. Pt states pain is 8/10 to R leg. IVF to R a/c. Denies other needs. Will continue to monitor.
[2019-05-12 10:17] LABS: BASO % 0.4 % (0.0-2.0); EOS # 0.1 (0.0-0.7); EOS % 1.3 % (0-4.0); GRAN % 71.7 % (42.2-75.2); HEMATOCRIT 44.7 % (42.0-52.0); LYMPH % 18.2 % (20.0-51.0); MEAN CELL VOLUME 86 fl (80.0-100.0); MEAN CORPUSCULAR HEMOGLOBIN 29 pg (27.0-31.0); MEAN CORPUSCULAR HGB CONC 34 g/dl (33.0-37.0); MEAN PLATELET VOLUME 10.6 fl (7.4-10.4); MONO # 0.5 (0.1-0.6); MONO % 8.2 % (1.7-9.3); PLATELET COUNT 179 K/mm3 (130-400); RED BLOOD COUNT 5.19 M/mm3 (4.20-5.60); REDCELL DISTRIBUTION WIDTH-CV 12.2 % (11.5-14.5)
--- NOTE | 2019-05-12 10:34 | NUR ---
BRIAN met with the patient and his Hilda to discuss a discharge plan. The pt lives [facility] with Hilda. The pt does not use DME and reports independence with ADLs. The pt's PCP is Dr. Skinner and pt receives his medications from [facility] with no difficulties. The pt does not have advanced directives in the EMR and was not interested in obtaining a DPOA-HC. The pt plans to return home upon discharge with Hilda providing transporation. There are no additional needs at this time.
--- NOTE | 2019-05-12 12:18 | NUR ---
First visit from the alcohol still operator. Digital Advertising Analyst prayed with family. No other needs right now.
--- NOTE | 2019-05-12 18:22 | NUR ---
Pt has done well today, resting in bed, up to shower this afternoon. Denies needs. IV changed to LFA d/t discomfort in R A/C. PRN pain meds and hypertension meds provided. RLE remains redenned in outlined area from this morning. Will give bedside shift report to nightshift nurse who will resume care.
--- NOTE | 2019-05-12 18:32 | NUR ---
Pt doing well, but states pain in ankle and calf is increasing. No new redness noted
--- NOTE | 2019-05-12 20:30 | NUR ---
Initial shift assessment done- states pain to RLE 04/21- will give percocet as ordered at this time and if needs Morphine later will give that- pt states understanding- right coe dressing dry and intact- right leg elevated with ice applied at this time tele on, Iv fluids of LR at 125cc/hr
--- NOTE | 2019-05-12 22:10 | NUR ---
Patient states is having chest pain 01/20, , B/P 180/104. pulse 62- will call Cesia ROCHA for orders. Tele on- Sinus
--- NOTE | 2019-05-12 22:25 | NUR ---
Cesia was called- EKG done, troponin drawn, First dose of nitro S.L given chest pain 4/10
--- NOTE | 2019-05-12 22:37 | NUR ---
Chest pain 11/22, B/P 172/114. Second nitro given
--- NOTE | 2019-05-12 22:45 | NUR ---
3rd nitro given B/P 171/89,63,18, chest pain 11/22 will talk to Cesia ROCHA
--- NOTE | 2019-05-12 23:00 | NUR ---
Morphine 2 mg given IV and Hydralazine 10mg given IV for B/P- new orders from [facility]- chest pain 10/22 at this time.
--- NOTE | 2019-05-12 23:30 | NUR ---
B/P 156/89,62,18- denies chest pain- states feeling better- will try to get some sleep- Tele on
--- NOTE | 2019-05-13 00:45 | NUR ---
States chest pain 12/20-was almost asleep and it woke him up- states he feels anxious- will give Ativan at this time and if no relief will give Morphine IV
[2019-05-13 01:18] VITALS: BP 157/91; PULSE 72; TEMP 98
--- NOTE | 2019-05-13 01:32 | NUR ---
states pain 10/22 to chest/03/22 to right leg- Morphine given- B/P stable 157/91
[2019-05-13 03:23] VITALS: BP 164/107; PULSE 70; TEMP 98.9
[2019-05-13 04:05] VITALS: BP 158/96
--- NOTE | 2019-05-13 05:31 | NUR ---
Sound asleep at this time- LR at 125cc/hr, no increase in redness to RLE during the night- Did have the 2 episodes of chest pain during the night- EKG,troponins negative- apresoline IV given x1 for high B/P, nitrox3 given for first episode, morphine and ativan was most effective to relieve chest pain and RLE pain-
[2019-05-13 08:23] LABS: BASO % 0.6 % (0.0-2.0); EOS # 0.2 (0.0-0.7); GRAN # 3.2 (1.4-6.5); GRAN % 59.6 % (42.2-75.2); HEMATOCRIT 45.8 % (42.0-52.0); HEMOGLOBIN 15.2 g/dl (13.5-18.0); LYMPH # 1.4 (1.2-3.4); LYMPH % 25.9 % (20.0-51.0); MEAN CELL VOLUME 87 fl (80.0-100.0); MEAN CORPUSCULAR HEMOGLOBIN 29 pg (27.0-31.0); MEAN CORPUSCULAR HGB CONC 33 g/dl (33.0-37.0); MEAN PLATELET VOLUME 10.9 fl (7.4-10.4); MONO # 0.6 (0.1-0.6); MONO % 10.7 % (1.7-9.3); PLATELET COUNT 198 K/mm3 (130-400); RED BLOOD COUNT 5.25 M/mm3 (4.20-5.60); REDCELL DISTRIBUTION WIDTH-CV 12.4 % (11.5-14.5)
[2019-05-13 08:41] VITALS: BP 197/123; PULSE 61; TEMP 98.7
[2019-05-13 08:50] LABS: ANION GAP 9 mmol/L (7-16); BLOOD UREA NITROGEN 11 mg/dL (9-20); CALCIUM 9.4 mg/dL (8.4-10.2); CARBON DIOXIDE 30 mmol/L (22-30); CHLORIDE 104 mmol/L (98-107); CREATININE, serum 0.75 (0.66-1.25); GLUCOSE 87 mg/dL (74-106); POTASSIUM 3.5 mmol/L (3.4-5.0); SODIUM 144 mmol/L (137-145)
[2019-05-13 09:02] LABS: TROPONIN-I < 0.012 ng/mL (0.000-0.035)
[2019-05-13] MEDS ORDERED: MONODOX100 PO ×2 (10:49)
[2019-05-13] MEDS ORDERED: DOXYCYCLINE 10100 MG PO (10:53)
--- NOTE | 2019-05-13 13:13 | NUR ---
discharge orders reviewd with patient, insturcted to follow up with PCp as we have scheduled for him, instructed to take Antibiotic as ordered, continue all other home meds, instructed to leave leg wound CLARITA or to cover with bandaid if outside, IV and tele removed, leaving with his parents, i have personally escorted them out the door
== END 2019-05-13 13:16 | disposition home or self-care (01) ==
LOC: COL.ER 07:01 → MEDICAL 10:31
PROVIDERS: Family Medicine; Physician Assistant; ADMIT Family Medicine
DX: M79.604 Pain in right leg (principal); G89.29 Other chronic pain; R07.9 Chest pain, unspecified; M54.9 Dorsalgia, unspecified; I42.8 Other cardiomyopathies; K51.90 Ulcerative colitis, unspecified, without complications; F41.9 Anxiety disorder, unspecified; Z87.820 Personal history of traumatic brain injury; I47.1 Supraventricular tachycardia; Z95.818 Presence of other cardiac implants and grafts; I10 Essential (primary) hypertension; R56.9 Unspecified convulsions; Z90.49 Acquired absence of other specified parts of digestive tract; Z95.810 Presence of automatic (implantable) cardiac defibrillator; I25.10 Atherosclerotic heart disease of native coronary artery without angina pectoris; Z79.899 Other long term (current) drug therapy; Z79.82 Long term (current) use of aspirin; Z83.3 Family history of diabetes mellitus; Z82.49 Family history of ischemic heart disease and other diseases of the circulatory system; Z82.3 Family history of stroke; Z80.9 Family history of malignant neoplasm, unspecified; Z88.0 Allergy status to penicillin
CPT/HCPCS: 99232-AI; G0378; J0360; J1650; J1885; J2270; J2405; J3010; J3370; J7040; J7050; J7120

== ENCOUNTER 2019-06-01 13:10 | Emergency (ER) | payer BC ==
[2009-04-11 02:41] VITALS: BP 136/95
[~2019-06-01] VITALS: Ht 182.9 cm; Wt 95.5 kg
[2019-06-01 13:10] VITALS: TEMP 97.8
[~2019-06-01 13:10] MED LIST changes: +DOXYCYCLINE 10100 MG PO; +MONODOX100 PO
[2019-06-01] MEDS ORDERED: NORVASC2.5 MG PO (13:36)
[2019-06-01 13:42] LABS: BASO % 0.6 % (0.0-2.0); EOS # 0.2 (0.0-0.7); EOS % 3.4 % (0-4.0); GRAN # 3.2 (1.4-6.5); HEMATOCRIT 38.1 % (42.0-52.0); HEMOGLOBIN 12.9 g/dl (13.5-18.0); LYMPH # 1.5 (1.2-3.4); LYMPH % 27.2 % (20.0-51.0); MEAN CELL VOLUME 87 fl (80.0-100.0); MEAN CORPUSCULAR HEMOGLOBIN 29 pg (27.0-31.0); MEAN CORPUSCULAR HGB CONC 34 g/dl (33.0-37.0); MEAN PLATELET VOLUME 10.7 fl (7.4-10.4); MONO # 0.5 (0.1-0.6); MONO % 8.6 % (1.7-9.3); PLATELET COUNT 165 K/mm3 (130-400); RED BLOOD COUNT 4.39 M/mm3 (4.20-5.60); REDCELL DISTRIBUTION WIDTH-CV 12.6 % (11.5-14.5)
[2019-06-01 13:50] LABS: PROTHROMBIN TIME 12.1 SECONDS (9.7-12.8)
[2019-06-01 13:52] LABS: ALANINE AMINOTRANSFERASE 13 U/L (21-72); ALBUMIN 3.7 gm/dL (3.5-5.0); ALKALINE PHOSPHATASE 40 U/L (50-136); ANION GAP 8 mmol/L (7-16); AST,SGOT 23 U/L (15-37); BILIRUBIN,TOTAL 0.3 mg/dL (0.0-1.0); BLOOD UREA NITROGEN 22 mg/dL (9-20); CALCIUM 8.7 mg/dL (8.4-10.2); CARBON DIOXIDE 23 mmol/L (22-30); CHLORIDE 112 mmol/L (98-107); CREATININE, serum 0.83 (0.66-1.25); GLUCOSE 90 mg/dL (74-106); POTASSIUM 3.6 mmol/L (3.4-5.0); SODIUM 143 mmol/L (137-145); TOTAL PROTEIN 6.3 gm/dL (6.4-8.2)
[2019-06-01 13:53] LABS: PARTIAL THROMBOPLASTIN TIME 27.4 SECONDS (26.0-37.0)
[2019-06-01 14:09] LABS: TROPONIN-I < 0.012 ng/mL (0.000-0.035)
[2019-06-01 17:20] VITALS: BP 155/115; PULSE 59
== END 2019-06-01 17:30 | disposition home or self-care (01) ==
LOC: COL.ER 13:10
PROVIDERS: Family Medicine
DX: R07.89 Other chest pain (principal); Z79.82 Long term (current) use of aspirin
CPT/HCPCS: J2270; J2550; J7030

== ENCOUNTER 2019-06-14 09:25 | Emergency (ER) | payer BC ==
[2009-04-11 02:41] VITALS: BP 136/95
[~2019-06-14] VITALS: Ht 182.9 cm; Wt 97.3 kg
[~2019-06-14 09:25] MED LIST changes: +NORVASC2.5 MG PO
[2019-06-14 09:36] VITALS: TEMP 98.3
[2019-06-14] MEDS ORDERED: CEPHALEXIN500 M1 PO (10:41)
[2019-06-14 11:03] VITALS: BP 146/83; PULSE 85
== END 2019-06-14 11:05 | disposition home or self-care (01) ==
LOC: COL.ER 09:25
DX: S61.201A Unspecified open wound of left index finger without damage to nail, initial encounter (principal); Z90.89 Acquired absence of other organs; W23.0XXA Caught, crushed, jammed, or pinched between moving objects, initial encounter; Y92.009 Unspecified place in unspecified non-institutional (private) residence as the place of occurrence of the external cause

== ENCOUNTER 2019-06-19 12:40 | Emergency (ER) | payer BC ==
[2009-04-11 02:41] VITALS: BP 136/95
[~2019-06-19] VITALS: Ht 182.9 cm; Wt 97.3 kg
[2019-06-19 12:47] VITALS: TEMP 97.6
[2019-06-19] MEDS ORDERED: PREDNISONE20 MG PO (15:18)
[2019-06-19 15:33] LABS: BASO % 0.2 % (0.0-2.0); EOS % 0.2 % (0-4.0); GRAN # 9.3 (1.4-6.5); GRAN % 87.1 % (42.2-75.2); HEMATOCRIT 45.7 % (42.0-52.0); HEMOGLOBIN 15.3 g/dl (13.5-18.0); LYMPH # 0.9 (1.2-3.4); LYMPH % 8.7 % (20.0-51.0); MEAN CELL VOLUME 87 fl (80.0-100.0); MEAN CORPUSCULAR HEMOGLOBIN 29 pg (27.0-31.0); MEAN CORPUSCULAR HGB CONC 34 g/dl (33.0-37.0); MEAN PLATELET VOLUME 10.2 fl (7.4-10.4); MONO # 0.4 (0.1-0.6); MONO % 3.5 % (1.7-9.3); PLATELET COUNT 198 K/mm3 (130-400); RED BLOOD COUNT 5.25 M/mm3 (4.20-5.60); REDCELL DISTRIBUTION WIDTH-CV 13.6 % (11.5-14.5)
[2019-06-19 15:51] LABS: ERYTHROCYTE SEDIMENTATION RATE 1 mm/hr (0-15)
[2019-06-19 16:00] LABS: ALANINE AMINOTRANSFERASE 17 U/L (21-72); ALBUMIN 4.7 gm/dL (3.5-5.0); ALKALINE PHOSPHATASE 50 U/L (50-136); ANION GAP 9 mmol/L (7-16); AST,SGOT 27 U/L (15-37); BILIRUBIN,TOTAL 0.6 mg/dL (0.0-1.0); BLOOD UREA NITROGEN 16 mg/dL (9-20); CALCIUM 9.9 mg/dL (8.4-10.2); CARBON DIOXIDE 26 mmol/L (22-30); CHLORIDE 102 mmol/L (98-107); CREATININE, serum 0.62 (0.66-1.25); GLUCOSE 120 mg/dL (74-106); LIPASE 112 U/L (23-300); POTASSIUM 4.2 mmol/L (3.4-5.0); SODIUM 138 mmol/L (137-145); TOTAL PROTEIN 8.1 gm/dL (6.4-8.2)
[2019-06-19 16:02] LABS: C-REACTIVE PROTEIN < 0.5 mg/dL (0.0-0.9)
[2019-06-19 16:10] LABS: TROPONIN-I < 0.012 ng/mL (0.000-0.035)
[2019-06-19 17:30] VITALS: BP 135/98; PULSE 60
== END 2019-06-19 17:32 | disposition home or self-care (01) ==
LOC: COL.ER 12:40
PROVIDERS: Emergency Medicine
DX: R07.89 Other chest pain (principal); I10 Essential (primary) hypertension; E78.5 Hyperlipidemia, unspecified; F12.90 Cannabis use, unspecified, uncomplicated; Z95.0 Presence of cardiac pacemaker; Z79.82 Long term (current) use of aspirin
CPT/HCPCS: J2270; J2405

== ENCOUNTER → 2019-06-21 | Outpatient (CLI) | payer BC | LOC: COL.RAD 07:13 | DX: D86.9 Sarcoidosis, unspecified (principal); I10 Essential (primary) hypertension; Z95.0 Presence of cardiac pacemaker | CPT/HCPCS: Q9967 ==

== ENCOUNTER 2019-08-28 19:59 | Emergency (ER) | payer BC ==
[2009-04-11 02:41] VITALS: BP 136/95
[~2019-08-28] VITALS: Ht 182.9 cm; Wt 97.3 kg
[2019-08-28 20:01] VITALS: TEMP 97.9
[2019-08-28 20:53] LABS: HEMATOCRIT 47.3 % (42.0-52.0); HEMOGLOBIN 16.2 g/dl (13.5-18.0); MEAN CELL VOLUME 91 fl (80.0-100.0); MEAN CORPUSCULAR HEMOGLOBIN 31 pg (27.0-31.0); MEAN CORPUSCULAR HGB CONC 34 g/dl (33.0-37.0); MEAN PLATELET VOLUME 9.9 fl (7.4-10.4); PLATELET COUNT 160 K/mm3 (130-400); RED BLOOD COUNT 5.19 M/mm3 (4.20-5.60); REDCELL DISTRIBUTION WIDTH-CV 14.6 % (11.5-14.5)
[2019-08-28 21:01] LABS: INR 0.9 (0.8-3.0); PROTHROMBIN TIME 10.3 SECONDS (9.7-12.8)
[2019-08-28 21:04] LABS: PARTIAL THROMBOPLASTIN TIME 24.9 SECONDS (26.0-37.0)
[2019-08-28 21:20] LABS: HYPOCHROMIA 1+; LYMPHOCYTE 4 % (20.0-51.0); NEUTROPHILS 94 % (42.0-75.2); PLATELET ESTIMATE NORMAL (NORMAL)
[2019-08-28 21:50] LABS: ALANINE AMINOTRANSFERASE 43 U/L (21-72); ALBUMIN 4.5 gm/dL (3.5-5.0); ALKALINE PHOSPHATASE 45 U/L (50-136); ANION GAP 8 mmol/L (7-16); AST,SGOT 33 U/L (15-37); BILIRUBIN,TOTAL 0.6 mg/dL (0.0-1.0); BLOOD UREA NITROGEN 20 mg/dL (9-20); CALCIUM 9.8 mg/dL (8.4-10.2); CARBON DIOXIDE 25 mmol/L (22-30); CHLORIDE 104 mmol/L (98-107); CREATININE, serum 0.72 (0.66-1.25); GLUCOSE 133 mg/dL (74-106); POTASSIUM 4.2 mmol/L (3.4-5.0); SODIUM 137 mmol/L (137-145); TOTAL PROTEIN 7.6 gm/dL (6.4-8.2)
[2019-08-28 22:03] LABS: TROPONIN-I < 0.012 ng/mL (0.000-0.035)
[2019-08-28 22:18] VITALS: BP 103/79; PULSE 79
== END 2019-08-28 22:20 | disposition home or self-care (01) ==
LOC: COL.ER 19:59
PROVIDERS: Family Medicine
DX: G89.29 Other chronic pain (principal); R07.89 Other chest pain; Z79.82 Long term (current) use of aspirin
CPT/HCPCS: J2270

== ENCOUNTER 2019-09-03 14:10 | Observation (INO) | payer MEDICARE, BC ==
[2009-04-11 02:41] VITALS: BP 136/95
[~2019-09-03] VITALS: Ht 182.9 cm; Wt 97.3 kg
[2019-09-03] MEDS ORDERED: PRINIVIL10 MG PO (15:07)
[2019-09-03] MEDS ORDERED: METHOTREXA2.5 MG/TAB PO (15:08)
[2019-09-03] MEDS ORDERED: FOLIC ACID 11 MG/TA1 PO (15:09)
[2019-09-03] MEDS ORDERED: BACTRIM DS 8001 TAB PO (15:09)
[2019-09-03] MEDS ORDERED: ASPI325T6 PO (15:10)
[2019-09-03] MEDS ORDERED: APRISO PO (15:11)
[2019-09-03] MEDS ORDERED: ATIVAN 1MG T1 MG/TAB PO (15:12)
[2019-09-03 15:23] LABS: BASO % 0.1 % (0.0-2.0); GRAN # 10.1 (1.4-6.5); GRAN % 87.7 % (42.2-75.2); HEMATOCRIT 47.3 % (42.0-52.0); HEMOGLOBIN 15.9 g/dl (13.5-18.0); LYMPH # 0.7 (1.2-3.4); LYMPH % 6.4 % (20.0-51.0); MEAN CELL VOLUME 92 fl (80.0-100.0); MEAN CORPUSCULAR HEMOGLOBIN 31 pg (27.0-31.0); MEAN CORPUSCULAR HGB CONC 34 g/dl (33.0-37.0); MEAN PLATELET VOLUME 10.6 fl (7.4-10.4); MONO # 0.6 (0.1-0.6); MONO % 5.1 % (1.7-9.3); PLATELET COUNT 175 K/mm3 (130-400); RED BLOOD COUNT 5.15 M/mm3 (4.20-5.60); REDCELL DISTRIBUTION WIDTH-CV 14.5 % (11.5-14.5)
[2019-09-03 15:24] LABS: INR 0.9 (0.8-3.0); PROTHROMBIN TIME 9.9 SECONDS (9.7-12.8)
[2019-09-03 15:27] LABS: PARTIAL THROMBOPLASTIN TIME 23.6 SECONDS (26.0-37.0)
[2019-09-03 15:35] LABS: ALANINE AMINOTRANSFERASE 56 U/L (21-72); ALBUMIN 4.1 gm/dL (3.5-5.0); ALKALINE PHOSPHATASE 44 U/L (50-136); ANION GAP 7 mmol/L (7-16); AST,SGOT 37 U/L (15-37); BILIRUBIN,TOTAL 0.5 mg/dL (0.0-1.0); BLOOD UREA NITROGEN 32 mg/dL (9-20); CALCIUM 9.1 mg/dL (8.4-10.2); CARBON DIOXIDE 27 mmol/L (22-30); CHLORIDE 107 mmol/L (98-107); GLUCOSE 135 mg/dL (74-106); POTASSIUM 3.6 mmol/L (3.4-5.0); SODIUM 141 mmol/L (137-145); TOTAL PROTEIN 6.7 gm/dL (6.4-8.2)
[2019-09-03 15:47] LABS: TROPONIN-I < 0.012 ng/mL (0.000-0.035)
[2019-09-03 17:21] LABS: MAGNESIUM 2.3 mg/dL (1.6-2.3)
[2019-09-03 17:53] LABS: THYROID STIMULATING HORMONE 0.096 uIU/mL (0.465-4.680)
[2019-09-03 18:16] LABS: COLLECTION METHOD CLEAN CATCH
[2019-09-03 18:26] LABS: MUCOUS Present /lpf; PH 5 (5-8); SQUAMOUS EPITHELIAL None Seen /hpf; URINE APPEARANCE Clear; URINE BACTERIA None Seen /hpf; URINE BILIRUBIN Negative (NEGATIVE); URINE BLOOD Negative (NEGATIVE); URINE COLOR Yellow; URINE GLUCOSE Negative (NEGATIVE); URINE KETONE Negative (NEGATIVE); URINE LEUKOCYTE ESTERASE Negative (NEGATIVE); URINE NITRATE Negative (NEGATIVE); URINE PROTEIN(semi-quant) 1+ (NEGATIVE); URINE RBC 0-2 /hpf; URINE UROBILINOGEN Negative (NEGATIVE)
--- NOTE | 2019-09-03 18:28 | NUR ---
Pt arrived to room 319 from ED. He is awake and A/Ox4, transfers independently. IV to right AC is free of complications. Meds/allergies/pharm reviewed. Pt familiar with medical unit from previous admissions. Multiple family members at bedside.
[2019-09-03 19:37] VITALS: BP 123/75; PULSE 79; TEMP 97.8
[2019-09-03 21:05] LABS: TRICYCLIC ANTIDEPRESS URINE NEGATIVE
[2019-09-03 23:29] VITALS: BP 141/97; PULSE 59; TEMP 98.7
--- NOTE | 2019-09-04 01:19 | NUR ---
Patient in bed with heart pillow to chest. Patient noted to groan out and state he continues to have chest pain that is unrelieved by PRN percocet or morphine. States he takes percocet at home for pain management. Family at bedside. Currently wearing telemetry. Will continue to monitor patient.
[2019-09-04 03:40] VITALS: BP 138/99; PULSE 72
[2019-09-04 08:33] LABS: BASO % 0.1 % (0.0-2.0); EOS % 0.1 % (0-4.0); GRAN # 7.9 (1.4-6.5); GRAN % 74.6 % (42.2-75.2); HEMATOCRIT 48.6 % (42.0-52.0); HEMOGLOBIN 16.7 g/dl (13.5-18.0); LYMPH # 1.7 (1.2-3.4); LYMPH % 16.2 % (20.0-51.0); MEAN CELL VOLUME 91 fl (80.0-100.0); MEAN CORPUSCULAR HEMOGLOBIN 31 pg (27.0-31.0); MEAN CORPUSCULAR HGB CONC 34 g/dl (33.0-37.0); MEAN PLATELET VOLUME 10.5 fl (7.4-10.4); MONO # 0.8 (0.1-0.6); PLATELET COUNT 181 K/mm3 (130-400); RED BLOOD COUNT 5.36 M/mm3 (4.20-5.60); REDCELL DISTRIBUTION WIDTH-CV 14.6 % (11.5-14.5)
[2019-09-04 08:52] LABS: ANION GAP 5 mmol/L (7-16); BLOOD UREA NITROGEN 19 mg/dL (9-20); CALCIUM 9.1 mg/dL (8.4-10.2); CARBON DIOXIDE 29 mmol/L (22-30); CHLORIDE 103 mmol/L (98-107); CREATININE, serum 0.78 (0.66-1.25); GLUCOSE 96 mg/dL (74-106); POTASSIUM 3.9 mmol/L (3.4-5.0); SODIUM 138 mmol/L (137-145)
[2019-09-04 09:00] VITALS: BP 126/94; PULSE 51; TEMP 97.7
--- NOTE | 2019-09-04 09:00 | NUR ---
Assessment completed, alert/oriented, vital signs stable, reporting chest pain 7-05/22 and requested morphine, stated he has pain constantly but it has been worse the past couple of days, heart is irregular paced with underlying A.fib/ they had started him on Xarelto, patient report his ICD firing multiple times recently at home, Cardiology is consulted, he is sitting up eating and denies other needs at this time
[2019-09-04 09:02] LABS: TROPONIN-I < 0.012 ng/mL (0.000-0.035)
[2019-09-04] MEDS ORDERED: XARELTO20 MG PO (10:00)
--- NOTE | 2019-09-04 12:43 | NUR ---
Discussed discharge orders and instruction with patient, instructed to take Xarelto as prescribed/ script sent to pharmacy for him, instructed to follow up with PCP/Cardiology as directed, IV and tele removed, patient is ambulatory and I personally escorted him out the door
== END 2019-09-04 12:44 | disposition home or self-care (01) ==
LOC: COL.ER 14:10 → MEDICAL 16:00
PROVIDERS: Emergency Medicine; Nurse Practitioner Family; ADMIT Family Medicine
DX: I48.0 Paroxysmal atrial fibrillation (principal); D86.89 Sarcoidosis of other sites; I10 Essential (primary) hypertension; I95.9 Hypotension, unspecified; G89.29 Other chronic pain; M54.9 Dorsalgia, unspecified; K51.90 Ulcerative colitis, unspecified, without complications; R79.89 Other specified abnormal findings of blood chemistry; Z79.82 Long term (current) use of aspirin; Z79.01 Long term (current) use of anticoagulants; Z90.49 Acquired absence of other specified parts of digestive tract; Z95.0 Presence of cardiac pacemaker; Z79.52 Long term (current) use of systemic steroids; Z88.0 Allergy status to penicillin; Z88.6 Allergy status to analgesic agent; Z88.8 Allergy status to other drugs, medicaments and biological substances
CPT/HCPCS: G0378; J2270; J2405; J7030; J7512

== ENCOUNTER 2019-12-25 10:34 | Emergency (ER) | payer BC, MEDICARE ==
[2009-04-11 02:41] VITALS: BP 136/95
[~2019-12-25] VITALS: Ht 182.9 cm; Wt 103.6 kg
[~2019-12-25 10:34] MED LIST changes: +APRISO PO; +ASPI325T6 PO; +ATIVAN 1MG T1 MG/TAB PO; +BACTRIM DS 8001 TAB PO; +FOLIC ACID 11 MG/TA1 PO; +METHOTREXA2.5 MG/TAB PO; +XARELTO20 MG PO
[2019-12-25 10:40] VITALS: TEMP 98.2
[2019-12-25] MEDS ORDERED: IBU800 M1 PO (10:59)
[2019-12-25 12:09] VITALS: BP 124/87; PULSE 77
== END 2019-12-25 12:10 | disposition home or self-care (01) ==
LOC: COL.ER 10:34
DX: S43.101A Unspecified dislocation of right acromioclavicular joint, initial encounter (principal); Z88.0 Allergy status to penicillin; Z88.8 Allergy status to other drugs, medicaments and biological substances; Z79.52 Long term (current) use of systemic steroids; Z90.89 Acquired absence of other organs; W18.39XA Other fall on same level, initial encounter; Y92.009 Unspecified place in unspecified non-institutional (private) residence as the place of occurrence of the external cause
CPT/HCPCS: J2270; J2550

== ENCOUNTER → 2020-01-05 | Outpatient (CLI) | payer BC, MEDICARE ==
[~2020-01-05] MED LIST changes: +IBU800 M1 PO
--- NOTE | 2020-01-05 12:16 | NUR ---
PT WAS NOT ABLE TO COMPLETE THE TEST DUE TO SHOULDER PAIN.
== END ==
LOC: COL.RAD 10:12
DX: M48.02 Spinal stenosis, cervical region (principal); M54.2 Cervicalgia

== ENCOUNTER → 2020-01-17 | Outpatient (CLI) | payer MEDICARE, BC ==
[2009-04-11 02:41] VITALS: BP 136/95
[~2020-01-17] VITALS: Ht 182.9 cm; Wt 105.5 kg
[2020-01-17 09:41] VITALS: BP 165/110; PULSE 93
--- NOTE | 2020-01-17 10:15 | NUR ---
Pt unable to lay flat on ct table. Procedure cancelled.
== END ==
LOC: COL.RAD 07:30
DX: M50.322 Other cervical disc degeneration at C5-C6 level (principal); M50.90 Cervical disc disorder, unspecified, unspecified cervical region; M25.511 Pain in right shoulder

== ENCOUNTER → 2020-04-21 | Outpatient (CLI) | payer BC, MEDICARE | LOC: COL.RAD 10:09 | DX: M54.2 Cervicalgia (principal) ==

== ENCOUNTER 2020-05-17 09:00 | Outpatient (RCR) | payer MEDICARE, BC | END 2020-05-18 | disposition home or self-care (01) | LOC: WSC | DX: M50.30 Other cervical disc degeneration, unspecified cervical region (principal); D86.9 Sarcoidosis, unspecified; M25.511 Pain in right shoulder ==

== ENCOUNTER 2020-09-19 23:05 | Emergency (ER) | payer MEDICARE, BC ==
[2009-04-11 02:41] VITALS: BP 136/95
[~2020-09-19] VITALS: Ht 182.9 cm; Wt 99.5 kg
[2020-09-19 23:05] VITALS: TEMP 97.9
[2020-09-19 23:30] LABS: BASO % 0.5 % (0.0-2.0); EOS # 0.3 (0.0-0.7); GRAN # 5.1 (1.4-6.5); HEMATOCRIT 42.5 % (42.0-52.0); HEMOGLOBIN 14.4 g/dl (13.5-18.0); LYMPH # 2.2 (1.2-3.4); LYMPH % 26.3 % (20.0-51.0); MEAN CELL VOLUME 89 fl (80.0-100.0); MEAN CORPUSCULAR HEMOGLOBIN 30 pg (27.0-31.0); MEAN CORPUSCULAR HGB CONC 34 g/dl (33.0-37.0); MEAN PLATELET VOLUME 10.7 fl (7.4-10.4); MONO # 0.8 (0.1-0.6); PLATELET COUNT 213 K/mm3 (130-400); RED BLOOD COUNT 4.76 M/mm3 (4.20-5.60); REDCELL DISTRIBUTION WIDTH-CV 13.3 % (11.5-14.5)
[2020-09-19 23:36] LABS: ALANINE AMINOTRANSFERASE 20 U/L (4-49); ALBUMIN 4.2 gm/dL (3.5-5.0); ALKALINE PHOSPHATASE 56 U/L (50-136); ANION GAP 9 mmol/L (7-16); AST,SGOT 29 U/L (15-37); BILIRUBIN,TOTAL 0.9 mg/dL (0.0-1.0); BLOOD UREA NITROGEN 6 mg/dL (9-20); CALCIUM 9.3 mg/dL (8.4-10.2); CARBON DIOXIDE 26 mmol/L (22-30); CHLORIDE 105 mmol/L (98-107); CREATININE, serum 0.76 (0.66-1.25); GLUCOSE 99 mg/dL (74-106); PHOSPHOROUS 5.1 mg/dL (2.5-4.5); POTASSIUM 3.2 mmol/L (3.4-5.0); SODIUM 140 mmol/L (137-145); TOTAL PROTEIN 6.9 gm/dL (6.4-8.2)
[2020-09-19 23:37] LABS: MAGNESIUM 1.6 mg/dL (1.6-2.3)
[2020-09-19 23:48] LABS: TROPONIN-I < 0.012 ng/mL (0.000-0.035)
[2020-09-20 03:20] VITALS: BP 146/98; PULSE 80
== END 2020-09-20 03:20 | disposition home or self-care (01) ==
LOC: COL.ER 23:05
PROVIDERS: Physician Assistant
DX: D86.9 Sarcoidosis, unspecified (principal); R07.9 Chest pain, unspecified; Z95.0 Presence of cardiac pacemaker; Z88.0 Allergy status to penicillin; Z88.8 Allergy status to other drugs, medicaments and biological substances; Z88.6 Allergy status to analgesic agent; Z79.52 Long term (current) use of systemic steroids; Z79.01 Long term (current) use of anticoagulants
CPT/HCPCS: J0282; J7060

== ENCOUNTER 2020-11-01 10:17 | Emergency (ER) | payer MEDICARE, BC ==
[2009-04-11 02:41] VITALS: BP 136/95
[~2020-11-01] VITALS: Ht 365.8 cm; Wt 94.1 kg
[2020-11-01 10:17] VITALS: TEMP 97.6
[2020-11-01 10:35] LABS: BASO % 0.5 % (0.0-2.0); EOS # 0.3 (0.0-0.7); EOS % 3.1 % (0-4.0); GRAN # 5.1 (1.4-6.5); GRAN % 63.3 % (42.2-75.2); HEMATOCRIT 45.4 % (42.0-52.0); LYMPH # 1.9 (1.2-3.4); MEAN CELL VOLUME 90 fl (80.0-100.0); MEAN CORPUSCULAR HEMOGLOBIN 30 pg (27.0-31.0); MEAN CORPUSCULAR HGB CONC 33 g/dl (33.0-37.0); MEAN PLATELET VOLUME 10.8 fl (7.4-10.4); MONO # 0.8 (0.1-0.6); PLATELET COUNT 242 K/mm3 (130-400); RED BLOOD COUNT 5.02 M/mm3 (4.20-5.60); REDCELL DISTRIBUTION WIDTH-CV 13.2 % (11.5-14.5)
[2020-11-01 10:41] LABS: ALANINE AMINOTRANSFERASE 18 U/L (4-49); ALBUMIN 4.4 gm/dL (3.5-5.0); ALKALINE PHOSPHATASE 51 U/L (50-136); ANION GAP 8 mmol/L (7-16); AST,SGOT 27 U/L (15-37); BILIRUBIN,TOTAL 0.5 mg/dL (0.0-1.0); BLOOD UREA NITROGEN 9 mg/dL (9-20); CALCIUM 9.7 mg/dL (8.4-10.2); CARBON DIOXIDE 31 mmol/L (22-30); CHLORIDE 103 mmol/L (98-107); CREATININE, serum 0.83 (0.66-1.25); GLUCOSE 106 mg/dL (74-106); POTASSIUM 4.2 mmol/L (3.4-5.0); SODIUM 141 mmol/L (137-145); TOTAL PROTEIN 7.2 gm/dL (6.4-8.2)
[2020-11-01 10:54] LABS: TROPONIN-I < 0.012 ng/mL (0.000-0.035)
[2020-11-01 11:00] LABS: COLLECTION METHOD CLEAN CATCH
[2020-11-01 11:11] LABS: MUCOUS Present /lpf; PH 6 (5-8); SQUAMOUS EPITHELIAL None Seen /hpf; URINE APPEARANCE Clear; URINE BACTERIA None Seen /hpf; URINE BILIRUBIN Negative (NEGATIVE); URINE BLOOD Negative (NEGATIVE); URINE COLOR Yellow; URINE GLUCOSE Negative (NEGATIVE); URINE KETONE Negative (NEGATIVE); URINE LEUKOCYTE ESTERASE Negative (NEGATIVE); URINE NITRATE Negative (NEGATIVE); URINE PROTEIN(semi-quant) Negative (NEGATIVE); URINE RBC 0-2 /hpf; URINE UROBILINOGEN Negative (NEGATIVE)
[2020-11-01 12:04] VITALS: BP 118/74; PULSE 59
[2020-11-01 14:26] LABS: TRICYCLIC ANTIDEPRESS URINE NEGATIVE
== END 2020-11-01 12:07 | disposition home or self-care (01) ==
LOC: COL.ER 10:17
PROVIDERS: Nurse Practitioner Primary Care
DX: R07.89 Other chest pain (principal); R42 Dizziness and giddiness; F17.200 Nicotine dependence, unspecified, uncomplicated; Z88.0 Allergy status to penicillin; Z88.6 Allergy status to analgesic agent; Z88.8 Allergy status to other drugs, medicaments and biological substances; Z79.52 Long term (current) use of systemic steroids; Z79.01 Long term (current) use of anticoagulants

== ENCOUNTER 2021-09-19 13:29 | Emergency (ER) | payer MEDICARE, BC ==
[~2021-09-19] VITALS: Ht 182.9 cm; Wt 94.5 kg
[2021-09-19 13:37] VITALS: TEMP 98.5
[2021-09-19 14:00] LABS: BASO # 0.1 K/mm3 (0.0-0.2); BASO % 0.8 % (0.0-2.0); EOS # 0.2 K/mm3 (0.0-0.7); EOS % 3.1 % (0-4.0); GRAN # 3.1 K/mm3 (1.4-6.5); GRAN % 51.3 % (42.2-75.2); HEMATOCRIT 42.1 % (42.0-52.0); HEMOGLOBIN 14.1 g/dl (13.5-18.0); LYMPH # 2.2 K/mm3 (1.2-3.4); LYMPH % 35.7 % (20.0-51.0); MEAN CELL VOLUME 90 fl (80.0-100.0); MEAN CORPUSCULAR HEMOGLOBIN 30 pg (27.0-31.0); MEAN CORPUSCULAR HGB CONC 34 g/dl (33.0-37.0); MEAN PLATELET VOLUME 10.2 fl (7.4-10.4); MONO # 0.5 K/mm3 (0.1-0.6); MONO % 8.9 % (1.7-9.3); PLATELET COUNT 215 K/mm3 (130-400); RED BLOOD COUNT 4.67 M/mm3 (4.20-5.60); REDCELL DISTRIBUTION WIDTH-CV 13.8 % (11.5-14.5)
[2021-09-19 14:21] LABS: ALANINE AMINOTRANSFERASE 14 U/L (0-55); ALKALINE PHOSPHATASE 60 U/L (40-150); ANION GAP 9 mmol/L (7-16); AST,SGOT 19 U/L (5-34); BILIRUBIN,TOTAL 0.6 mg/dL (0.2-1.2); BLOOD UREA NITROGEN 10 mg/dL (9-21); CALCIUM 8.4 mg/dL (8.4-10.2); CARBON DIOXIDE 23 mmol/L (22-29); CHLORIDE 110 mmol/L (98-107); CREATININE, serum 0.83 mg/dL (0.72-1.25); GLUCOSE 85 mg/dL (70-99); POTASSIUM 3.2 mmol/L (3.5-4.5); SODIUM 142 mmol/L (136-145); TOTAL PROTEIN 6.5 gm/dL (6.2-8.1)
[2021-09-19 14:32] LABS: TROPONIN-I < 0.010 ng/mL (0.00-0.033)
[2021-09-19 15:40] VITALS: BP 146/99; PULSE 61
== END 2021-09-19 15:40 | disposition home or self-care (01) ==
LOC: COL.ER 13:29
PROVIDERS: Personal Emergency Response Attendant
DX: R07.9 Chest pain, unspecified (principal); D86.9 Sarcoidosis, unspecified; Z95.0 Presence of cardiac pacemaker

== ENCOUNTER → 2021-09-26 | Outpatient (CLI) | payer MEDICARE, BC ==
[2009-04-11 02:41] VITALS: BP 136/95
[2021-09-26] VITALS (7 sets, daily range): BP systolic 127–154; BP diastolic 77–105; PULSE 68–86; TEMP 98.1
[~2021-09-26] VITALS: Ht 182.9 cm; Wt 93.0 kg
== END ==
LOC: COL.RAD 08:07
DX: M50.223 Other cervical disc displacement at C6-C7 level (principal); M48.02 Spinal stenosis, cervical region; M51.36 Other intervertebral disc degeneration, lumbar region; M51.26 Other intervertebral disc displacement, lumbar region
CPT/HCPCS: A9575; J2250; J2405; J2704; J3010; J7120

== ENCOUNTER → 2021-10-26 | Outpatient (CLI) | payer MEDICARE, BC ==
[2009-04-11 02:41] VITALS: BP 136/95
[~2021-10-26] VITALS: Ht 182.9 cm; Wt 97.8 kg
[2021-10-26 06:51] VITALS: BP 139/70; PULSE 71; TEMP 98.2
--- NOTE | 2021-10-26 07:31 | NUR ---
pt was unable to complete the procedure.
== END ==
LOC: COL.RAD 06:24
DX: M50.30 Other cervical disc degeneration, unspecified cervical region (principal)

== ENCOUNTER 2022-01-16 10:42 | Day surgery (SDC) | payer MEDICARE, BC ==
[2009-04-11 02:41] VITALS: BP 136/95
[~2022-01-16] VITALS: Ht 183 cm; Wt 94.6 kg
[2022-01-16] VITALS (8 sets, daily range): BP systolic 100–120; BP diastolic 67–89; PULSE 60–76; TEMP 98.2
[2022-01-16 11:29] LABS: HEMATOCRIT 42.2 % (42.0-52.0); HEMOGLOBIN 14.9 g/dl (13.5-18.0); MEAN CELL VOLUME 88 fl (80.0-100.0); MEAN CORPUSCULAR HEMOGLOBIN 31 pg (27-31); MEAN CORPUSCULAR HGB CONC 35 g/dl (33.0-37.0); PLATELET COUNT 244 K/mm3 (130-400); REDCELL DISTRIBUTION WIDTH-CV 13.2 % (11.5-14.5)
[2022-01-16 11:37] LABS: INR 1.1 (0.8-3.0); PROTHROMBIN TIME 12.4 SECONDS (9.7-12.8)
[2022-01-16 11:39] LABS: PARTIAL THROMBOPLASTIN TIME 30.1 SECONDS (26.0-37.0)
[2022-01-16 11:42] LABS: CALCIUM 9.2 mg/dL (8.4-10.2); CREATININE, serum 0.86 mg/dL (0.72-1.25)
--- NOTE | 2022-01-16 12:01 | NUR ---
See merge for all vital signs, assessment, interventions, medication times. Patient assessed while in express unit.
--- NOTE | 2022-01-16 13:00 | NUR ---
PT RETURNED FROM EVENT SECURITY OFFICER VIA BED, WITH HIM, HOB ELEVATED, RADIAL WRIST BAND ON CLEAN AND DRY. PT TAKES WATER AND ORDERED MEAL
--- NOTE | 2022-01-16 14:00 | NUR ---
pt sits up in bed, no changes, lunch delivered.
--- NOTE | 2022-01-16 15:00 | NUR ---
release of air to band started, 2cc every 4-5 min with release of band at 1515 bandaid over site, no oozing noted or swelling to area. reviewed discharge inst. with pt on activity level, also precautions to right wrist and limitations, pt is not to start up blood thinnner till friday per order. has next appt also.
--- NOTE | 2022-01-16 15:30 | NUR ---
iv d'cd intact, pt is up in room dressed, no c/o. Pt discharged via w/c to car with
== END 2022-01-16 15:30 | disposition home or self-care (01) ==
LOC: COL.CAR 10:42
PROVIDERS: Internal Medicine Cardiovascular Disease
DX: I49.01 Ventricular fibrillation (principal); Z95.810 Presence of automatic (implantable) cardiac defibrillator
CPT/HCPCS: C1769; J1644; J2250; J3010; Q9967

== ENCOUNTER → 2022-03-07 | Outpatient (CLI) | payer MEDICARE, BC | LOC: COL.RAD 09:57 | DX: N50.89 Other specified disorders of the male genital organs (principal) ==

== ENCOUNTER 2024-06-05 23:47 | Observation (INO) | payer MEDICARE, BC ==
[~2024-06-05] VITALS: Ht 182.9 cm; Wt 99.0 kg
[~2024-06-05 23:47] MED LIST changes: -APRISO PO
[2024-06-06] VITALS (8 sets, daily range): BP systolic 129–148; BP diastolic 78–92; PULSE 60–67; TEMP 97.4–98.2
[2024-06-06] MEDS ORDERED: NS 64 ML IV SCH (00:03)
[2024-06-06] MEDS ORDERED: Iohexol 350 - 100 ML VIAL IV ONE (00:03)
[2024-06-06 00:25] LABS: BASO % 0.8 % (0.0-2.0); EOS # 0.2 K/mm3 (0.0-0.7); EOS % 4.8 % (0.0-4.0); GRAN # 2.2 K/mm3 (1.4-6.5); GRAN % 46.1 % (42.2-75.2); HEMATOCRIT 37.7 % (42.0-52.0); HEMOGLOBIN 13.1 g/dl (13.5-18.0); LYMPH # 1.7 K/mm3 (1.2-3.4); LYMPH % 35.5 % (20.0-51.0); MEAN CELL VOLUME 96 fl (80.0-100.0); MEAN CORPUSCULAR HEMOGLOBIN 33 pg (27-31); MEAN CORPUSCULAR HGB CONC 35 g/dl (33.0-37.0); MEAN PLATELET VOLUME 10.2 fl (7.4-10.4); MONO # 0.6 K/mm3 (0.1-0.6); MONO % 12.4 % (1.7-9.3); PLATELET COUNT 177 K/mm3 (130-400); RED BLOOD COUNT 3.92 M/mm3 (4.20-5.60); REDCELL DISTRIBUTION WIDTH-CV 14.3 % (11.5-14.5)
[2024-06-06 00:26] LABS: INR 1.6 (0.8-3.0); PROTHROMBIN TIME 17.3 SECONDS (9.7-12.8)
[2024-06-06 00:29] LABS: PARTIAL THROMBOPLASTIN TIME 36.5 SECONDS (26.0-37.0)
[2024-06-06 00:36] LABS: COLLECTION METHOD CLEAN CATCH
[2024-06-06 00:40] LABS: PH 5.5 (5.0-8.5); URINE APPEARANCE CLEAR (CLEAR/HAZY); URINE BLOOD NEGATIVE (NEGATIVE); URINE COLOR YELLOW (YELLOW); URINE GLUCOSE NEGATIVE (NEGATIVE); URINE KETONE NEGATIVE (NEGATIVE); URINE NITRATE NEGATIVE (NEGATIVE); URINE PROTEIN(semi-quant) NEGATIVE (NEGATIVE); URINE UROBILINOGEN 0.2 E.U/dL (0.2-1.0)
[2024-06-06 00:42] LABS: ALANINE AMINOTRANSFERASE 29 U/L (0-55); ALBUMIN 3.7 g/dL (3.5-5.0); ALKALINE PHOSPHATASE 42 U/L (40-150); ANION GAP 12 mmol/L (7-16); AST,SGOT 23 U/L (5-34); BILIRUBIN,TOTAL 0.5 mg/dL (0.2-1.2); BLOOD UREA NITROGEN 14 mg/dL (9-21); CALCIUM 8.5 mg/dL (8.4-10.2); CHLORIDE 111 mEq/L (98-107); CREATININE, serum 0.88 mg/dL (0.72-1.25); GLUCOSE 89 mg/dL (70-99); POTASSIUM 3.7 mEq/L (3.5-4.5); SODIUM 142 mEq/L (136-145); TOTAL PROTEIN 5.9 g/dl (6.2-8.1)
[2024-06-06 00:58] LABS: TROPONIN-I < 0.010 ng/mL (0.00-0.033)
[2024-06-06 01:13] LABS: TRICYCLIC ANTIDEPRESS URINE NEGATIVE (NEGATIVE)
[2024-06-06] MEDS ORDERED: Acetaminophen 325 MG TAB PO PRN (02:00)
[2024-06-06] MEDS ORDERED: Ondansetron 4 MG/2 ML VIAL IV PRN (02:00)
[2024-06-06] MEDS ORDERED: NS 1,000 ML IV SCH (02:00)
[2024-06-06] MEDS ORDERED: AMBIEN 10MG10 MG PO (02:40)
[2024-06-06] MEDS ORDERED: LORazepam 0.5 MG TAB PO PRN (03:15)
--- NOTE | 2024-06-06 04:20 | NUR ---
PATIENT ADMITTED TO ROOM 357, BROUGHT UP IN BED BY WATERPROOFER HELPER, GERARDO. PATIENT STILL EXHIBITS MILD WEAKNESS ON LT SIDE. NO FACIAL DROOP NOTED AND BEDSIDE SWALLOW EVAL WITH WATER EXHIBITS NO COMPLICATIONS. VS ARE WNL: 138/85BP, 62PULSE, TEMP 98.2, 97% RA AND AXO X 4. PATIENT DENIES PAIN OR NEEDS AT THIS TIME. NIH STROKE SCALE PERFORMED BEDSIDE WITH WATERPROOFER HELPER. SCORE NOW 0. NEUROS PERFORMED.
--- NOTE | 2024-06-06 05:14 | NUR ---
PATIENT RATES BACK PAIN 7/10. DENIES CHEST PAIN. PRN TYLENOL GIVEN. PATIENT FEELING "A LITTLE RESTLESS.". PRN ATIVAN GIVEN.
[2024-06-06 06:45] LABS: TROPONIN-I 6 HR POST INITIAL < 0.010 ng/mL (0.00-0.033)
[2024-06-06 07:03] LABS: CHOLESTEROL RISK RATIO 3.8
[2024-06-06] MEDS ORDERED: Gabapentin 300 MG CAP PO SCH (09:00)
[2024-06-06] MEDS ORDERED: Folic Acid 1 MG TAB PO SCH (09:00)
[2024-06-06] MEDS ORDERED: Patient's Own Medication Item PO SCH (09:00)
--- NOTE | 2024-06-06 09:12 | NUR ---
SW met with patient to complete initial assessment for discharge planning. Patient lying in bed in dark room, presented with tearfulness and complaining of pain and discomfort. Patient verified that he lives at home with his Kim ([phone]). Patient denies having a DPOA completed and declines to complete one at this time. Patient sees Dr. Rodger Skinner as his PCP and uses [facility] pharmacy. Patient states that he uses no DME. Patient is covered by Medicare and [facility] and states he's been on disability for about 6 years. Patient plans to return home at discharge. Patient denies any home services at this time. Discharge plan: Home
[2024-06-06] MEDS ORDERED: Mesalamine DR 1.2 GM TAB PO SCH (10:20)
--- NOTE | 2024-06-06 13:18 | NUR ---
IVF d/c'd per MD order.
[2024-06-06] MEDS ORDERED: Lidocaine 4% Topical Patch TP SCH (13:38)
[2024-06-06] MEDS ORDERED: oxyCODONE/Acetaminophen 7.5-325 MG TAB PO PRN (13:45)
--- NOTE | 2024-06-06 18:03 | NUR ---
Assessment completed this am. A/O x4. Upon entering room this morning to administer medications and do an assessment, patient was noted to be crying. Reporting pain in his hands, shoulders, knees and back. Dr. Rhodes notified of patient's request to restart home Percocet regimen. Pt reports that he usually uses cannabinoids for pain control but has a prescription for Percocet 7.5 (which is on his med rec). Order obtained for x1 [place] which was administered. Pt then asked later in the day for his Percocet. Dr. Rhodes notified again and order rec'd for lidocaine patch- which was applied to mid low back and Percocet. Percocet administered prn and patient reports pain now under control. Pt has been resting comfortably in bed this afternoon but did sit in chair for quite a bit of time late this morning after working with physical therapy. Neuro checks WNL. No slurred speech or left sided weakness noted. SBA with walker. IVF d/c'd as ordered.
--- NOTE | 2024-06-06 20:30 | NUR ---
Initial shift assessment done- alert/oriented x4, states pain to joints /10-would like a percocet at this time, given,, Up to bathroom with assist, left leg pt states feels "heavy", unsteady gait. Left upper extremities normal strength, hand grasps equal. no slurred speech-
[2024-06-06] MEDS ORDERED: Pravastatin 20 MG TAB PO SCH (21:00)
[2024-06-07] VITALS (12 sets, daily range): BP systolic 127–167; BP diastolic 87–100; PULSE 59–69; TEMP 67.4–98.5
--- NOTE | 2024-06-07 05:43 | NUR ---
Did sleep fairly well last night,, did get Percocet x2 this shift for overall joint pain, also Zofran x1 for nausea, Tele on-a paced, neuros unchanged- states his left leg is " heavy"-
--- NOTE | 2024-06-07 08:00 | NUR ---
Assessment completed. A/O x4. Reports joint and low back pain a 01/20. Neuro checks completed. Pt able to slowly lift and hold LLE but some weakness noted. No other deficits noted. Fall precautions in place.
--- NOTE | 2024-06-07 08:39 | NUR ---
BRIAN attended clinical rounds with team. PT notes reviewed. BRIAN called patient's to discuss discharge options. She is interested in [facility] referral for continued therapy. BRIAN called Neli with [facility] to make official referral. Discharge plan: [facility] vs Home with
[2024-06-07 08:40] LABS: BASO % 0.4 % (0.0-2.0); EOS # 0.1 K/mm3 (0.0-0.7); EOS % 2.1 % (0.0-4.0); GRAN % 70.5 % (42.2-75.2); HEMATOCRIT 44.4 % (42.0-52.0); LYMPH # 1.1 K/mm3 (1.2-3.4); MEAN CELL VOLUME 95 fl (80.0-100.0); MEAN CORPUSCULAR HEMOGLOBIN 33 pg (27-31); MEAN CORPUSCULAR HGB CONC 35 g/dl (33.0-37.0); MEAN PLATELET VOLUME 10.1 fl (7.4-10.4); MONO # 0.5 K/mm3 (0.1-0.6); PLATELET COUNT 180 K/mm3 (130-400)
[2024-06-07 08:45] LABS: HEMOGLOBIN 15.3 g/dl (13.5-18.0)
[2024-06-07] MEDS ORDERED: hydrALAZINE 25 MG TAB PO PRN (08:45)
[2024-06-07 08:59] LABS: ALBUMIN 4.3 g/dL (3.5-5.0); BILIRUBIN,TOTAL 0.9 mg/dL (0.2-1.2); CALCIUM 9.4 mg/dL (8.4-10.2); CREATININE, serum 0.84 mg/dL (0.72-1.25); POTASSIUM 3.8 mEq/L (3.5-4.5); TOTAL PROTEIN 7.3 g/dl (6.2-8.1)
[2024-06-07] MEDS ORDERED: Sulfamethoxazole/Trimethoprim 800-160 MG TAB PO SCH (09:00)
[2024-06-07] MEDS ORDERED: LORazepam 2 MG/ML 1 ML VIAL IV ONE (09:45)
--- NOTE | 2024-06-07 10:30 | NUR ---
Pt rates pain 5/10. Declines offer for Percocet. Sitting in chair. Left leg weakness noted while ambulationg with walker.
--- NOTE | 2024-06-07 11:00 | NUR ---
Valium administered IVP for patient's c/o claustrophbia. Pt to MRI via w/c.
--- NOTE | 2024-06-07 11:41 | NUR ---
Patient returns from MRI. Now sitting in chair. Fall precautions in place.
--- NOTE | 2024-06-07 12:09 | NUR ---
D: Orthopedic Nurse Practitioner stopped by room on rounds. A: Pt was resting and content in his chair. Pt asked for prayer and box bender prayed with him. Pt appreciated the visit. P: Orthopedic Nurse Practitioner informed pt that if he needed anything from the box bender area to let his nurse know. Orthopedic Nurse Practitioner will follow up as needed.
[2024-06-07] MEDS ORDERED: Lidocaine 4% Topical Patch TP ONE (16:15)
--- NOTE | 2024-06-07 19:05 | NUR ---
Pt sitting up in chair all afternoon. Patient ambulated in hallway with PCT and physical therapy today. X1 assist with walker. Pt able to lift and hold LLE but raises very slowly to get it to rise. Also has to pickling grader his LLE when getting his legs into bed. LLE weakness noted with ambulation. Percocet administered prn pain and patient report it has been effective. Denies needs at this time. Fall precautions in place. Report given to JACEY Chisholm.
--- NOTE | 2024-06-07 21:00 | NUR ---
Initial shift assessment done- states would like a Percocet before bed tonight,,states his hand are what is most pain ful tonight, overall joint pain, Tele on- paced, Neuros unchanged- states left leg is "heavy", feels" like a ton of bricks". Did walk around halls with walker and staff tonight.
[2024-06-08 01:00] VITALS: BP_SYST 127
[2024-06-08 03:09] VITALS: BP 136/87; PULSE 60; TEMP 98.2
[2024-06-08 03:20] VITALS: BP_SYST 136
--- NOTE | 2024-06-08 04:00 | NUR ---
Has been resting well, awake now and up to bathroom with help-asking for Percoet for hand/joint pain- VSS, did not require Hydralazine during the night-
[2024-06-08 07:54] LABS: BASO % 0.3 % (0.0-2.0); EOS # 0.1 K/mm3 (0.0-0.7); EOS % 1.7 % (0.0-4.0); GRAN # 5.2 K/mm3 (1.4-6.5); GRAN % 72.7 % (42.2-75.2); HEMATOCRIT 45.8 % (42.0-52.0); HEMOGLOBIN 15.9 g/dl (13.5-18.0); LYMPH # 1.2 K/mm3 (1.2-3.4); LYMPH % 17.3 % (20.0-51.0); MEAN CELL VOLUME 94 fl (80.0-100.0); MEAN CORPUSCULAR HEMOGLOBIN 33 pg (27-31); MEAN CORPUSCULAR HGB CONC 35 g/dl (33.0-37.0); MEAN PLATELET VOLUME 10.8 fl (7.4-10.4); MONO # 0.6 K/mm3 (0.1-0.6); MONO % 7.9 % (1.7-9.3); PLATELET COUNT 200 K/mm3 (130-400); RED BLOOD COUNT 4.87 M/mm3 (4.20-5.60); REDCELL DISTRIBUTION WIDTH-CV 13.9 % (11.5-14.5)
[2024-06-08 08:13] LABS: ALBUMIN 4.4 g/dL (3.5-5.0); BILIRUBIN,TOTAL 1.1 mg/dL (0.2-1.2); CALCIUM 10.2 mg/dL (8.4-10.2); CREATININE, serum 0.97 mg/dL (0.72-1.25); POTASSIUM 4.1 mEq/L (3.5-4.5); TOTAL PROTEIN 7.4 g/dl (6.2-8.1)
[2024-06-08 08:16] VITALS: BP 156/94; PULSE 63; TEMP 97.7
[2024-06-08 08:59] VITALS: BP_SYST 156
--- NOTE | 2024-06-08 10:02 | NUR ---
PATIENT SITTING UP IN RECLINER. ALERT AND ORIENTED. PATIENT COMPLAINING OF HEADACHE, STATING HE IS CONCERNED THAT IT IS RELATED TO HIS BP. CURRENT SBP IS 163. THIS RN ADMINSTERED PRN HYDRALAZINE PER MAR. DENIES FURTHER NEEDS OR CONCERNS AT THIS TIME. CALL LIGHT WITHIN REACH.
--- NOTE | 2024-06-08 11:05 | NUR ---
Initial visit; Patient thanked Morning Caregiver for looking in on him and offering 'healing prayer' and keeping him in her prayers. Morning Caregiver will follow-up while patient is here.
--- NOTE | 2024-06-08 11:09 | NUR ---
THIS RN PROVIDED PATIENT WITH DISCHARGE EDUCATION AND INSTRUCTIONS AND EDUCATION. ALL QUESTIONS ANSWERED AT THIS TIME. IV TO RIGHT HAND DISCONTINUED. CDI.
--- NOTE | 2024-06-08 12:08 | NUR ---
PATIENT ESCORTED OFF UNIT BY THIS RN. ALL BELONGINGS WITH PATIENT.
--- NOTE | 2024-06-08 15:49 | NUR ---
Verifier attended clinical rounds with the team and patient to return home today with outpatient PT/OT. SW met with patient who was agreeable to [facility] as he needs both PT and OT. BRIAN scheduled appointments for patient at the [facility] location: PT 06/21/24 @1300, OT 06/16/24 @1000. BRIAN provided appointments to community support specialist. BRIAN faxed referral and orders to [facility].
== END 2024-06-08 11:30 | disposition home or self-care (01) ==
LOC: COL.ER 23:47 → MEDICAL 06-06 01:55
PROVIDERS: Emergency Medicine; Physician Assistant; ADMIT Internal Medicine
DX: R47.1 Dysarthria and anarthria (principal); R53.1 Weakness; E87.20 Acidosis, unspecified; D86.9 Sarcoidosis, unspecified; I48.91 Unspecified atrial fibrillation; E78.5 Hyperlipidemia, unspecified; I10 Essential (primary) hypertension; F19.90 Other psychoactive substance use, unspecified, uncomplicated; F10.90 Alcohol use, unspecified, uncomplicated; Z79.899 Other long term (current) drug therapy; Z95.810 Presence of automatic (implantable) cardiac defibrillator; Z79.01 Long term (current) use of anticoagulants
CPT/HCPCS: G0378; J2060; J2405; J7030; J8610; Q3014; Q9967

== ENCOUNTER → 2024-07-12 | Outpatient (RCR) | payer MEDICARE, BC ==
[~2024-07-12] MED LIST changes: +AMBIEN 10MG10 MG PO
== END | disposition home or self-care (01) ==
LOC: WSPT → WSOT 06-16 10:00 → WSPT 06-21 13:00 → WSOT 06-23 11:15 → WSPT 06-28 13:30
DX: G45.9 Transient cerebral ischemic attack, unspecified (principal); I72.9 Aneurysm of unspecified site